=== PATIENT | male | born 1975 | race Caucasian/White ===

== ENCOUNTER 2023-11-22 09:30 | Emergency (ER) | payer BC, SELFPAY ==
[2023-11-22 09:34] VITALS: BP 150/109; PULSE 100; RESP 18; TEMP 37.8; O2SAT 100
--- NOTE | 2023-11-22 10:23 | ED.GENADULT ---
HPI - General Adult General Chief complaint: Skin/Abscess/Foreign Body Stated complaint: Facial Swelling/Left Eye Irritation Source: patient Mode of arrival: ambulatory Limitations: no limitations History of Present Illness HPI narrative: Patient presents for evaluation of left-sided facial swelling. He woke from sleep yesterday with some redness to the glabella/ He took a nap and woke up later in the day with swelling and redness to the left periorbital region. He denies any fever, chills, nausea, vomiting. He does not were glasses or contacts. His left upper and lower lids are swollen shut. Denies any drainage from the eye. He thinks he may have sustained an insect bite leading to the onset of his symptoms. Review of Systems Review of Systems: CONSTITUTIONAL: Denies fever, chills, or sweats. EYES: Reports left periorbital swelling. Denies discharge. ENT: Denies rhinorrhea, congestion, sore throat, or otalgia. CARDIOVASCULAR: Denies chest pain, palpitations, or edema. RESPIRATORY: Denies cough or dyspnea. GASTROINTESTINAL: Denies abdominal pain, nausea, vomiting, or diarrhea. GENITOURINARY: Denies dysuria or hematuria. SKIN: Reports redness to the left periorbital region. MUSCULOSKELETAL: Denies back pain, joint pain, or myalgia. NEUROLOGIC: Denies headache, numbness, dizziness, or weakness. PSYCHIATRIC: Denies anxiety or depression. PMFSH Past Medical History Medical History No pertinent past medical history Surgical History Surgical History No pertinent past surgical history Family History Family History Mother Family history non-contributory Social History Social History Living arrangements: with family Gender identity (if verbalized by the patient): Male Spiritual care concerns: No Exam Narrative: GENERAL: Well-appearing, well-nourished, and in no acute distress. HEAD: Normocephalic, atraumatic. EYES: PERRLA and EOMI. There is left periorbital swelling ENT: Nares clear, no rhinorrhea or epistaxis. Mucous membranes moist. Oropharynx without tonsillar hypertrophy exudate or other lesions. Bilateral TMs pearly castillo nonbulging NECK: Supple. No adenopathy or masses. No carotid bruits or JVD CHEST: Clear to auscultation. No respiratory distress. No wheezes rales or rhonchi HEART: Regular rate and rhythm. No murmur heard. Normal peripheral pulses. ABDOMEN: Soft, nontender, nondistended, normal active bowel sounds. EXTREMITIES: Normal range of motion. No edema. SKIN: there is a 4 x 3.5 cm area of erythema to the glabella. There is some overlying crusted drainage present. There is left periorbital redness NEURO: No focal deficits. Alert and oriented x3. PSYCH: Normal mood and affect. Course Course Emergency Course: This is a 48-year-old male who presented for evaluation of left periorbital swelling and redness. He does not have a primary care provider. I am concerned about his current symptoms with poor follow up. It would be in his best interest to go to the ER for further evaluation and treatment. At minimum they could potentially administer some steroids and perhaps some antibiotics as there is some area of concern for infection in the glabella region. He was agreeable to plans for transfer. I contacted [facility] and spoke with Dr. Garnica, who agreed to accept him for transfer to the Dept there. Level of Care: Express Care Visit Vital Signs Vital signs: Vital Signs Temperature 37.8 C H 11/22/23 09:34 Pulse Rate 100 11/22/23 09:34 Respiratory Rate 18 11/22/23 09:34 Blood Pressure 150/109 H 11/22/23 09:34 Pulse Oximetry 100 11/22/23 09:34 Oxygen Delivery Room Air 11/22/23 09:34 Temperature 37.8 C H 10/25
== END 2023-11-22 09:55 | disposition short-term general hospital (02) ==
LOC: EXPCOLL 09:35
PROVIDERS: Emergency Provider Nurse Practitioner
DX: H05.222 Edema of left orbit (principal)
CPT/HCPCS: 99212; G0463

== ENCOUNTER 2023-11-22 12:26 | Inpatient (IN) | payer BC, SELFPAY ==
--- NOTE | ~2023-11-22 | CT_ITS ---
CT orbit BI w con Ordering provider: Kiara Jones PA-C History: . L periorbital swelling, r/o orbit involvemnet . Comparison: None. Technique: Thin slice axial CT of the orbits was performed without contrast. Coronal reformatted imag es were also obtained. Radiation reduction technique utilized. The dose-length product was 166.3 mGy- cm. 75 mL Omnipaque 350 was given IV. FINDINGS: PARANASAL SINUSES: Right maxillary sinus disease. BONES: No facial fracture. ORBITS AND SUPERFICIAL SOFT TISSUES: The optic globes and orbits are normal. Scalp hematoma is seen in the left frontal area with soft tissue swelling over the left orbit. Otherw ise, The superficial soft tissues are normal. VISUALIZED MASTOIDS: Well aerated. IMPRESSION: NO ORBITAL FRACTURE IDENTIFIED. Reviewed, dictated and finalized at location A.
[2023-11-22 12:56] VITALS: BP 151/90; PULSE 80; RESP 16; TEMP 36.5; O2SAT 98
--- NOTE | 2023-11-22 14:28 | PC.NURSE ---
Eye kit brought to ABY Craig at bedside
[2023-11-22 14:29] VITALS: BP 142/97; PULSE 78; RESP 18; O2SAT 100
--- NOTE | 2023-11-22 14:38 | ED.EYEPROB ---
HPI - Eye Problem General Chief complaint: Eye Problems Stated complaint: L. eyelid swelling Time Seen by Provider: 11/22/23 14:16 Source: patient Mode of arrival: ambulatory Limitations: no limitations History of Present Illness HPI Narrative: Patient is a 48-year-old male who presents the ED with report of left eye swelling. Patient reports he first noticed redness to his middle forehead and left periorbital region yesterday. States he attempted washing the region home with soap/water and peroxide. He then woke up this morning with diffuse swelling throughout his left periorbital region. He complains of difficulty opening his left eye, but denies left eye vision changes. Denies significant eye pain or pain with movement of eye, but is reporting some mild pressure throughout left periorbital region. Denies fevers. Was seen at an urgent care prior to arrival and sent here for further evaluation. Related Data Allergies Allergy/AdvReac Type Severity Reaction Status Date / Time No Known Allergies Allergy Verified 11/22/23 16:16 Review of Systems Review of Systems: All systems reviewed & are unremarkable except as noted in HPI. All systems reviewed & are unremarkable except as noted in HPI and below PMFSH Past Medical History Medical History No pertinent past medical history Surgical History Surgical History No pertinent past surgical history Family History Family History Mother Family history non-contributory Social History Social History Living arrangements: with family Gender identity (if verbalized by the patient): Male Spiritual care concerns: No Exam Narrative: GENERAL: Mildly unkempt and disheveled appearing, well-nourished, non-toxic, in no acute distress. HEAD: Normocephalic, atraumatic. EYES: PERRL. EOMI, no significant discomfort reported with EOM. No limitations of EOM. No gaze deviation. No significant chemosis or appreciable proptosis. L eye conjunctiva is clear. There is some purulent and serous drainage from the eye, matting into the eyelashes. Diffuse swelling, erythema, and induration to L periorbital regions, including both L upper and lower eyelid. Difficult to open eye to visualize fully d/t swelling. Area of erythema and slight scaling vs scabbing present to middle forehead, between eyebrows (appearance is somewhat similar to impetigo?) No vesicles. No drainage. No pustular regions or pimple-like lesions. ENT: TM clear bilaterally, no evidence of AOE/AOM. No cerumen impaction. No vesicles present in either ear canal. Negative Deleon sign. RESPIRATORY: Airway patent, respirations nonlabored. Clear to auscultation bilaterally, no rales, rhonchi, wheezing. CARDIOVASCULAR: Regular rate and rhythm without murmurs, rubs, or gallops. MUSCULOSKELETAL: Moves all extremities. No gross deformities. SKIN: Warm, dry, normal color. NEURO: A&O X3. Speech clear. Cranial nerves II-XII grossly intact. Steady gait. No ataxic movements. PSYCHIATRIC: Appropriate mood and affect. Normal interaction. Course Vital Signs Vital signs: Vital Signs Temperature 97.7 F 11/22/23 12:56 Pulse Rate 80 11/22/23 12:56 Respiratory Rate 16 11/22/23 12:56 Blood Pressure 151/90 H 11/22/23 12:56 Pulse Oximetry 98 11/22/23 12:56 Oxygen Delivery Room Air 11/22/23 12:56 Temperature 97.7 F 11/22/23 12:56 Pulse Rate 78 11/22/23 14:29 Respiratory Rate 18 11/22/23 14:29 Blood Pressure 142/97 H 11/22/23 14:29 Pulse Oximetry 100 11/22/23 14:29 Oxygen Delivery Room Air 11/22/23 12:56 MDM - Eye Problem MDM Narrative Medical decision making narrative: Exam concerning for periorbital cellulitis. Will obtain lab and imaging to furt
[2023-11-22 14:52] LABS: Basophils Percent Auto 0.5 % (0.2-1.2); Eosinophils Absolute Auto 0.2 K/mm3 (0-0.3); Eosinophils Percent Auto 2.3 % (0-4.4); Hematocrit 35.9 % (42.0-52.0); Hemoglobin 12.3 g/dL (14.0-18.0); Immature Granulocyte Absolute 0.03 K/mm3 (0.00-0.031); Immature Granulocyte Percent A 0.3 % (0-0.5); Lymphocytes Absolute Auto 1.59 K/mm3 (0.9-3.2); Lymphocytes Percent Auto 18.4 % (18.3-44.2); Mean Corpuscular HGB Conc 34.3 g/dl (32-36); Mean Corpuscular Hemoglobin 33.6 pg (26-34); Mean Corpuscular Volume 98.1 fl (80-100); Mean Platelet Volume 10.7 fl (7.4-10.4); Monocytes Absolute Auto 0.9 K/mm3 (0.1-0.6); Monocytes Percent Auto 10.4 % (2.6-8.5); Neutrophils Absolute Auto 5.9 K/mm3 (1.3-6.7); Neutrophils Percent Auto 68.1 % (45.5-73.1); Platelet Count Result 166 k/mm3 (150-375); Red Blood Count 3.66 M/mm3 (4.6-6.20); Red Cell Distribution Width 13.4 % (11.5-14.5); White Blood Count 8.6 K/mm3 (4.5-10.0)
[2023-11-22 15:05] LABS: Estimated CRCL calculation 112 ml/min; Estimated Glomerular Filt Rate > 60
[2023-11-22 15:07] LABS: Lactic Acid Reflex 0.6 mmol/L (0.7-2.0)
[2023-11-22 15:09] LABS: Alanine Aminotransferase 13 U/L (6-50); Alkaline Phosphatase 77 U/L (38-126); Anion Gap 6 mmol/L (4-12); Aspartate Amino Transferase 22 U/L (17-59); Bilirubin,Total 0.4 mg/dL (0.2-1.3); Blood Urea Nitrogen 22 mg/dL (9-20); CRP 1.7 mg/dL (<1.0); Calcium 8.8 mg/dL (8.4-10.2); Carbon Dioxide 27 mmol/L (22-30); Chloride 105 mmol/L (98-107); Estimated CRCL calculation 128 ml/min; Estimated Glomerular Filt Rate > 60; Glucose 98 mg/dL (65-110); Potassium 3.9 mmol/L (3.4-5.0); Sodium 138 mmol/L (137-145)
[2023-11-22 15:20] LABS: Erythrocyte Sedimentation Rate 29 mm/hr (0-20)
[2023-11-22] MEDS: cefTRIAXone 2 GM/NS 100 ML 2 GM/100 ML BAG IVPB (16:49)
[2023-11-22] MEDS: HYDROcodone/acetaminophen (*CRX) 5-325 MG TABLET 1 TAB PO ×2 (16:50→20:35)
--- NOTE | 2023-11-22 16:52 | PC.NURSE ---
Pt reports hunger. Kiara ISAACS states pt can eat
--- NOTE | 2023-11-22 16:54 | PC.NURSE ---
SHITAL Craig states no blood cultures needed
[2023-11-22 17:27] VITALS: PULSE 77; RESP 16; O2SAT 100
--- NOTE | 2023-11-22 17:57 | ADMGEN ---
This patient, Wang Rodney, was admitted to [facility] Surg Room 327-01. Patient/family oriented to hospital policies and general routines including ID bracelet, bed and alarms, visiting hours, pain management, procedures, bathroom and other care routines, personal items, smoking policy, room service/diet, and visiting hours. Information on how to activate the Rapid Response Team has been discussed. Patient/Family are encouraged to report perceived risks to care and to ask questions if they do not understand what they are told or what they should do.
[2023-11-22] MEDS: VANCOMYCIN 1,250 MG/NS 250 ML 1,250 MG/250 ML BAG 166.67 MG IVPB (17:58)
--- NOTE | 2023-11-22 18:12 | PC.NURSE ---
Patient resting in bed. A&O x4. RA. No complaints of pain. IV abx started. Education given about safety moving around the room with IV pole. Meal tray ordered.
--- NOTE | 2023-11-22 19:00 | PM.IMHP ---
H&P: HPI History of Present Illness Date/Time: 11/22/23 19:00 Chief Complaint: Swollen left eye. Narrative: This is a 48-year-old male smoker who presented to the emergency department via private vehicle for evaluation of a swollen left eye. The patient provides the following history. He woke from sleep yesterday and noticed some redness in the mid to left side of the forehead and throughout the day the area became red and swollen. He cleaned the area with soap and water and peroxide before going to bed. Upon waking this morning he could barely open his left eye due to swelling. He went urgent care and was referred to the ED. He denies fever, chills, sweats, blurry vision, photophobia, vesicles, and facial muscle weakness. No known history of MRSA. In the ED: Temperature was 100.1? F on arrival. Blood pressure was 150/109. Labs are significant for WBC count of 8.6, hemoglobin 12.3, BUN 22, creatinine 0.70, lactic acid 0.6, CRP 1.7. Orbit CT showed soft tissue swelling over the left frontal area and left orbit. ED provider clarified with the radiologist that the swelling was superficial without involvement of the orbit itself. He was given a dose of ceftriaxone and vancomycin he is being admitted in this setting for further treatment. Review of Systems Review of Systems: 12 systems were reviewed and are negative except for as per HPI. [facility] Past Medical History Medical History No pertinent past medical history Tobacco dependence Surgical History Surgical History No pertinent past surgical history Family History Family History Mother Family history non-contributory Social History Social History Social History: Surrogate medical decision maker: Pietro Swartz, jacob. Code status: Full code. Smoking packs per day: 1 Smoking cigarettes per day: 20.0 Smoking status: Current every day smoker Tobacco type: cigarettes Alcohol intake: never Substance use: never Do You Feel Safe in your Home?: Yes Lack of Transportation: No Lack of Food: Never True Current Housing: I Have Housing Concerned About Future Housing: No Difficulty Paying Gas/Electric Bills: No Difficulty Paying for Meds: No Currently Unemployed: No Education: Don't Know Difficulty w/ Childcare or Family Care: No Living arrangements: with family Spiritual care concerns: No Meds Home Medications and Allergies Home Medications Medication Instructions Recorded Confirmed Type No Home Medications 11/22/23 11/22/23 History Allergies Allergy/AdvReac Type Severity Reaction Status Date / Time No Known Allergies Allergy Verified 11/22/23 17:59 Vital Signs Vital Signs - 24 hr 11/22/23 12:56 11/22/23 14:29 11/22/23 17:27 Temperature 97.7 F Pulse Rate 80 78 77 Respiratory Rate 16 18 16 Blood Pressure 151/90 H 142/97 H Pulse Oximetry 98 100 100 Oxygen Delivery Room Air Exam Narrative: General: Nontoxic-appearing male in the semi-[place]a position in bed. Weight: 69.4 kg. BMI: 20.2. HEENT: Left eye is erythematous and edematous and he is only able to open it up a couple of mm. There is yellow/green crust in the upper eyelashes. The erythema and edema extend down onto the cheek. There appears to be an area of impetigo in the glabellar region which may be the nidus of the infection. Left conjunctiva is injected. No pain with extraocular motions. Oral mucosa moist. Neck: Supple. Respiratory: Lungs are clear to auscultation bilaterally. Cardiovascular: Regular rate and rhythm with S1-S2. Gastrointestinal: Abdomen is soft, nontender, and nondistended with positive bowel sounds. Skin: Warm and dry. No rash or lesions on limited exam. Extremities: No cyanosis, clubbing, or e
[2023-11-22 21:26] VITALS: BP 142/91; PULSE 81; RESP 16; TEMP 36.7; O2SAT 97
[2023-11-23 02:00] LABS: MRSA (PCR) DETECTED (NOT DETECTE)
[2023-11-23 06:00] VITALS: BP 133/86; PULSE 75; RESP 16; TEMP 36.3; O2SAT 98
[2023-11-23] MEDS: VANCOMYCIN 1,250 MG/NS 250 ML 1,250 MG/250 ML BAG 166 MG IVPB ×2 (06:13→17:11)
[2023-11-23] MEDS: HYDROcodone/acetaminophen (*CRX) 5-325 MG TABLET 1 TAB PO ×2 (06:15→20:45)
[2023-11-23 06:16] LABS: Hematocrit 37.8 % (42.0-52.0); Hemoglobin 12.7 g/dL (14.0-18.0); Mean Corpuscular HGB Conc 33.6 g/dl (32-36); Mean Corpuscular Hemoglobin 33.6 pg (26-34); Mean Platelet Volume 11.4 fl (7.4-10.4); Platelet Count Result 167 k/mm3 (150-375); Red Blood Count 3.78 M/mm3 (4.6-6.20); Red Cell Distribution Width 13.3 % (11.5-14.5); White Blood Count 8.4 K/mm3 (4.5-10.0)
[2023-11-23 06:28] LABS: Anion Gap 2 mmol/L (4-12); Blood Urea Nitrogen 19 mg/dL (9-20); Calcium 8.2 mg/dL (8.4-10.2); Carbon Dioxide 27 mmol/L (22-30); Chloride 107 mmol/L (98-107); Estimated CRCL calculation 113 ml/min; Estimated Glomerular Filt Rate > 60; Glucose 107 mg/dL (65-110); Potassium 4.3 mmol/L (3.4-5.0); Sodium 136 mmol/L (137-145)
--- NOTE | 2023-11-23 08:38 | PM.IMPN ---
Progress Note: A&P Assessment and Plan (1) Periorbital cellulitis of left eye: Code(s): L03.213 - Periorbital cellulitis Status: Acute Plan The patient presented to the emergency department for evaluation of left eye swelling as detailed in HPI. Labs, imaging, EKG, and all reports were personally reviewed. Cellulitis may have been precipitated by a what appears to be impetigo in the glabellar region. CT scan showed soft tissue swelling in the ED provider confirmed with the radiologist that it was superficial. Continue ceftriaxone and vancomycin. Analgesics available as needed. Smoking cessation is encouraged. He declines the need for nicotine patch. #Periorbital Cellulitis -No evidence of shingles -No evidence of Orbital Cellulitis -No evidence of cavernous sinus thrombosis -Denies contact lens -Continue Vancomycin -If necessary escalate if Amp/Sulbactam -Continue warm compress Subjective Date/time seen: 11/23/23 08:38 Interval history: Patient works in construction. Patient currently lives at his friend's house. Believes 2 days ago he he had a bite on his left forehead and washed with peroxide but later his left eye was swollen and could not able to open his eyes. When questioned about shingles, patient reports he had shingles before but he felt his lesion on the left side does not feel like shingles. Denies any past medical history including diabetes but never seen a PCP. His last visit for medical attention for for his knee pain at [facility]. Patient nasal mask size positive. Currently we will continue the IV antibiotic with a warm compress. Patient is able to move his eyes without any difficulty. Patient denies any contact lens use undergo evidence of corneal abrasion. No suspicious for cavernous sinus thrombosis. Objective Data Vital Signs Vital Signs: Vital Signs - 24 hr 11/22/23 12:56 11/22/23 14:29 11/22/23 17:27 Temperature 97.7 F Pulse Rate 80 78 77 Respiratory Rate 16 18 16 Blood Pressure 151/90 H 142/97 H Pulse Oximetry 98 100 100 Oxygen Delivery Room Air 11/22/23 21:26 11/22/23 20:00 11/23/23 06:00 Temperature 98.1 F 97.4 F L Pulse Rate 81 75 Respiratory Rate 16 16 Blood Pressure 142/91 H 133/86 Pulse Oximetry 97 98 Oxygen Delivery Room Air 11/23/23 07:38 Temperature Pulse Rate Respiratory Rate Blood Pressure Pulse Oximetry Oxygen Delivery Room Air Intake/Output Intake/Output: Intake & Output 11/20/23 11/21/23 11/22/23 11/23/23 23:59 23:59 23:59 23:59 Intake Total 830 1000 Balance 830 1000 Meds/Results Medications: Active Medications Generic Name Dose Route Start Last Admin Trade Name Freq PRN Reason Stop Dose Admin Acetaminophen 650 mg 11/22/23 19:19 Acetaminophen 325 Mg Tablet PO Q6H PRN Mild Pain (1-3) or Fever Hydrocodone Bitart/Acetaminophen 1 tab 11/22/23 19:19 11/23/23 06:15 Hydrocodone/Acetaminophen (*Crx) 5-325 Mg Tablet PO 1 tab Q6H PRN Administration Pain Rated 4-6 Ceftriaxone Sodium 2 gm in 100 mls @ 200 mls/hr 11/23/23 16:00 Rocephin 2 Gm/Ns 100 Ml IVPB Q24H DAQUAN Vancomycin HCl 1,250 mg in 250 mls @ 166.667 mls/hr 11/22/23 18:00 11/23/23 07:44 Vancomycin 1,250 Mg/Ns 250 Ml IVPB Infused Q12H DAQUAN Infusion Radiology Results: ITS Impressions Orbit CT 11/22/23 15:15 IMPRESSION: NO ORBITAL FRACTURE IDENTIFIED. Labs Labs: Laboratory Results - last 24 hr 11/22/23 11/22/23 11/23/23 14:47 14:59 00:22 WBC 8.6 RBC 3.66 L Hgb 12.3 L Hct 35.9 L MCV 98.1 MCH 33.6 MCHC 34.3 RDW 13.4 Plt Count 166 MPV 10.7 H Immature Gran % (Auto) 0.3 Neut % (Auto) 68.1 Lymph % (Auto) 18.4 [place] % (Auto) 10.4 H Eos % (Auto) 2.3 Baso % (Auto) 0.5 Lymph # (Auto) 1.59 [place] # (Auto) 0.9 H Eos # (Auto) 0.2 Baso # (Auto) 0.0 Abs Immat Gran (auto) 0.03 Absolute Neuts (auto) 5.9 Absolute Nu
[2023-11-23 14:00] VITALS: BP 137/93; PULSE 70; RESP 14; TEMP 37; O2SAT 99
[2023-11-23] MEDS: cefTRIAXone 2 GM/NS 100 ML 2 GM/100 ML BAG IVPB (15:29)
[2023-11-23 21:11] VITALS: BP 152/94; PULSE 76; RESP 16; TEMP 36.9; O2SAT 98
[2023-11-24 05:41] VITALS: BP 147/90; PULSE 56; RESP 13; TEMP 36.7; O2SAT 99
[2023-11-24 05:48] LABS: Estimated CRCL calculation 132 ml/min; Estimated Glomerular Filt Rate > 60
[2023-11-24 06:00] LABS: Vancomycin Trough 7.9 ug/mL (10.0-20.0)
[2023-11-24] MEDS: VANCOMYCIN 1,750 MG/NS 500 ML 1,750 MG/500 ML BAG 250 MG IVPB (06:57)
[2023-11-24 08:00] VITALS: PULSE 56; RESP 13; O2SAT 99
--- NOTE | 2023-11-24 12:32 | P.DS_ITS ---
DS: Admitting Diagnosis Discharge Date 11/24/2023 Admitting Diagnosis Facial cellulitis DS: Discharge Diagnosis Discharge Diagnosis (1) Periorbital cellulitis of left eye: Code(s): L03.213 - Periorbital cellulitis Status: Acute DS: Summary Hospital Course Hospital Course: This is a 48-year-old male smoker who presented to the emergency department via private vehicle for evaluation of a swollen left eye. The patient provides the following history. He woke from sleep yesterday and noticed some redness in the mid to left side of the forehead and throughout the day the area became red and swollen. He cleaned the area with soap and water and peroxide before going to bed. Upon waking this morning he could barely open his left eye due to swelling. He went urgent care and was referred to the ED. He denies fever, chills, sweats, blurry vision, photophobia, vesicles, and facial muscle weakness. No known history of MRSA. In the ED: Temperature was 100.1? F on arrival. Blood pressure was 150/109. Labs are significant for WBC count of 8.6, hemoglobin 12.3, BUN 22, creatinine 0.70, lactic acid 0.6, CRP 1.7. Orbit CT showed soft tissue swelling over the left frontal area and left orbit. ED provider clarified with the radiologist that the swelling was superficial without involvement of the orbit itself. He was given a dose of ceftriaxone and vancomycin he is being admitted in this setting for further treatment. Patient was placed on vancomycin adn swelling markedly reduced, and erythema improved markedly. Today patient was discharged on Linezolid x 11 more days to total 14 days. also MRSA screenign positive and discharged on bactroban adn PRN pain control [place] 5/325 PRN 6 tablets \Also blood pressure was elevated through hospital stay,. thus patient has hypertension discharged on Lisinopril and HCTZ F/u with PCP in 3-5 days Time Spent with Patient Time attestation: Total time spent providing and/or coordinating discharge services: DS: Data Data Completed and Pending Labs on day of discharge: Labs from last 24 hours 11/24/23 05:16 Creatinine 0.60 L Estim Creat Clear Calc 132 Estimated GFR > 60 Vancomycin Trough 7.9 L Discharge Plan Discharge Attending physician on discharge: Angel Gomez Discharging Clinician: Nnanna,Onyema Anticipated Discharge Date/Time: 11/24/23 12:09 Patient Disposition: Home, Self-Care Activity: as tolerated Diet: as tolerated Discharge Instructions: Continue Linezolid for another 11 days conitnue Lisinopril 5mg adn HCTZ F/u with PCP in 3-5 days Patient Instructions: Antibiotic Form, How to Stop Smoking (DC) Stand Alone Forms: General Discharge Information Follow-up/Referrals: PHYSICIAN,INCOME TAX RETURN PREPARER [Primary Care Provider] - (F/u with PCP in 3-5 days) Discharge Medications: New hydrocodone-acetaminophen 5-325 mg Tablet 1 tablet PO Q6H PRN (Reason: Pain Rated 4-6) 3 Days Qty: 6 0RF linezolid 600 mg Tablet 600 mg PO Q12HR Qty: 23 0RF lisinopril-hydrochlorothiazide 10-12.5 mg tablet 1 tablet PO DAILY 30 Days Qty: 30 1RF mupirocin 2 % Ointment 1 applic EACH NARE Q12HR 10 Days Qty: 15 0RF Date of admission: 11/23/23 17:53 Primary Care Provider: PHYSICIAN,INCOME TAX RETURN PREPARER Admitting Provider: Vic Chang Attending physician on admission: Vic Chang Condition: Stable
[2023-11-24] MEDS: LINEZOLID 600 MG TABLET PO (13:07)
== END 2023-11-24 15:20 | disposition home or self-care (01) | DRG 383 ==
LOC: ANHED 14:38 → ANH3MEDSUR 17:23
PROVIDERS: Physician Assistant; Admitting Provider Internal Medicine; Emergency Provider Physician Assistant; Visit Provider Internal Medicine
DX: L03.213 Periorbital cellulitis (principal); F17.210 Nicotine dependence, cigarettes, uncomplicated
CPT/HCPCS: 36415; 70481; 80048; 80053; 80202; 82565; 83605; 85025; 85027; 85652; 86140; 87641; 96365; 99285; A9270; G0378; G0379; J0696; J3370; Q9967

== ENCOUNTER 2024-01-26 11:22 | Emergency (ER) | payer BC, SELFPAY ==
[2024-01-26 11:33] VITALS: BP 131/83; PULSE 108; RESP 16; TEMP 36.6; O2SAT 99
--- NOTE | 2024-01-26 11:41 | PC.NURSE ---
Pt c/o left ear pain for 2 days. Noted crusty yellow drainage from left ear. Pt currently unhoused. Care coordination consulted.
--- NOTE | 2024-01-26 12:10 | PCCCNOTE ---
Called to ED for homeless group home resources. Pt denied needing any other resources at this time.
--- NOTE | 2024-01-26 12:26 | ED.EAR ---
HPI - Ear Problem General Chief complaint: Ear Stated complaint: LEFT ear concerns x2d Time Seen by Provider: 01/26/24 11:41 History of Present Illness HPI Narrative: Patient is a 48-year-old male who presents to the ER with complaints of left ear pain. He reports the pain started approximately 2 days ago and he denies any previous congestion/ cough/ respiratory issues. Patient reports he is homeless and is provided services through social work. He denies any pertinent medical history related to this ER visit besides an abscess in his R eyelid approximately two months ago for which he was hospitalized. He denies any recent fevers, signs/symptoms of infection. MD Complaint: ear pain and ear discharge Location: left ear Duration: constant Severity: moderate Relieving factors: nothing Exacerbating factors: nothing Discharge from ear: Reports yes - purulent Associated symptoms ear: external ear tenderness Treatment prior to arrival: none Related Data Allergies Allergy/AdvReac Type Severity Reaction Status Date / Time No Known Allergies Allergy Verified 01/26/24 11:23 Review of Systems Review of Systems: All systems reviewed & are unremarkable except as noted in HPI and below PMFSH Past Medical History Medical History No pertinent past medical history Tobacco dependence Surgical History Surgical History No pertinent past surgical history Family History Family History Mother Family history non-contributory Social History Social History Social History: Surrogate medical decision maker: Pietro Swartz, sibling. Code status: Full code. Smoking packs per day: 1 Smoking cigarettes per day: 20.0 Smoking status: Current every day smoker Tobacco type: cigarettes Alcohol intake: never Substance use: never Do You Feel Safe in your Home?: Yes Lack of Transportation: No Lack of Food: Never True Current Housing: I Have Housing Concerned About Future Housing: No Difficulty Paying Gas/Electric Bills: No Difficulty Paying for Meds: No Currently Unemployed: No Education: Don't Know Difficulty w/ Childcare or Family Care: No Living arrangements: with family Spiritual care concerns: No Exam Narrative: GENERAL: Well appearing, well-nourished, non-toxic, in no acute distress. HEAD: Normocephalic, atraumatic. Dried purulent drainage coming from pts L ear canal. Unable to see L tympanic membrane d/t wax and drainage. R tympanic membrane pearly and translucent. NECK: Supple. Cervical lymph nodes on L side slightly enlarged. RESPIRATORY: Airway patent, respirations nonlabored. Clear to auscultation bilaterally, no rales, rhonchi, wheezing. CARDIOVASCULAR: Regular rate and rhythm without murmurs, rubs, or gallops. Peripheral pulses 2+ and equal bilaterally. ABDOMINAL: Soft, nontender, nondistended, no hepatosplenomegaly. Normoactive BS. MUSCULOSKELETAL: Moves all extremities. Strength/ROM intact without gross deformities. SKIN: Warm, dry, normal color. No rashes. NEURO: A&O X3. Speech clear. Cranial nerves II-XII grossly intact. Steady gait. No ataxic movements. PSYCHIATRIC: Appropriate mood and affect. Normal interaction. Course Vital Signs Vital signs: Vital Signs Temperature 36.6 C 01/26/24 11:33 Pulse Rate 108 H 01/26/24 11:33 Respiratory Rate 16 01/26/24 11:33 Blood Pressure 131/83 01/26/24 11:33 Pulse Oximetry 99 01/26/24 11:33 Oxygen Delivery Room Air 01/26/24 11:33 Temperature 36.6 C 01/26/24 11:33 Pulse Rate 108 H 01/26/24 11:33 Respiratory Rate 16 01/26/24 11:33 Blood Pressure 131/83 01/26/24 11:33 Pulse Oximetry 99 01/26/24 11:33 Oxygen Delivery Room Air 01/26/24 11:33 Medical Decision Making [facility] Narrative Medical decision making narrative: Patient is a 48-year-old male who presents to the ER with complaints of left ear pain. He reports the pain started approximately 2 days ago and he denies any previous congestion/ cough/ respiratory issues. Patient reports he is homeless and is provided services through social work. He denies any pertinent medical history related to this ER visit besides an abscess in his R eyelid approximately two months ago for which he was hospitalized. He denies any recent fevers, signs/symptoms of infection. Labs Ordered: None needed Imaging Ordered: None needed Diagnosis: L otitis media, L otitis externa Patient Education/Shared MDM: Patient reports improved symptoms after medication administration. He will be discharged home with a prescription for amoxicillin and ibuprofen. Patient verbalizes understanding and is in agreement with plan. Differential Diagnosis Differential Diagnosis: R otitis media, R otitis externa, foreign body in ear, perforated ear drum Vital Signs Vital Signs: Vital Signs Temperature 36.6 C 01/26/24 11:33 Pulse Rate 108 H 01/26/24 11:33 Respiratory Rate 16 01/26/24 11:33 Blood Pressure 131/83 01/26/24 11:33 Pulse Oximetry 99 01/26/24 11:33 Oxygen Delivery Room Air 01/26/24 11:33 Temperature 36.6 C 01/26/24 11:33 Pulse Rate 108 H 01/26/24 11:33 Respiratory Rate 16 01/26/24 11:33 Blood Pressure 131/83 01/26/24 11:33 Pulse Oximetry 99 01/26/24 11:33 Oxygen Delivery Room Air 01/26/24 11:33 Discharge Plan Discharge Clinical Impression: Otitis externa, Otitis media Patient Disposition: Home, Self-Care Condition: Stable Instructions: Antibiotic Form, Ear Infection (ED), Earache (ED) Additional Instructions: Patient is in agreement with current treatment plan. All questions answered. Vital signs stable at time of discharge. Please return to the ER with an worsening symptoms. Follow-up with primary care provider in the next 2-3 days. Take all medications as prescribed. Prescriptions: New amoxicillin-pot clavulanate 875-125 mg tablet 1 tablet PO Q12H Qty: 14 0RF ibuprofen 600 mg tablet 600 mg PO TID PRN (Reason: fever or pain) Qty: 14 0RF No Action hydrocodone-acetaminophen 5-325 mg Tablet 1 tablet PO Q6H PRN (Reason: Pain Rated 4-6) 3 Days Qty: 6 0RF linezolid 600 mg Tablet 600 mg PO Q12HR Qty: 23 0RF mupirocin 2 % Ointment 1 applic EACH NARE Q12HR 10 Days Qty: 15 0RF lisinopril-hydrochlorothiazide 10-12.5 mg tablet 1 tablet PO DAILY 30 Days Qty: 30 1RF Follow-up/Referrals: UNKNOWN,DOCTOR [Primary Care Provider] - Time of Disposition: 14:10
[2024-01-26] MEDS: AMOXICILLIN 500 MG CAPSULE PO (12:27)
[2024-01-26] MEDS: KETOROLAC (*BKC) 60 MG/2 ML VIAL IM (12:27)
[2024-01-26] MEDS: methylPREDNISolone SOD SUCC 125 MG VIAL IM (12:27)
[2024-01-26] MEDS: OFLOXACIN 0.3% OPHTH SOLN 5 ML BTL 3 DROP EACH EAR (12:48)
[2024-01-26 14:19] VITALS: BP 130/68; PULSE 78; RESP 18; TEMP 37; O2SAT 99
== END 2024-01-26 14:27 | disposition home or self-care (01) ==
PROVIDERS: Emergency Provider Registered Nurse
DX: H60.91 Unspecified otitis externa, right ear (principal); H66.91 Otitis media, unspecified, right ear; F17.210 Nicotine dependence, cigarettes, uncomplicated
CPT/HCPCS: 96372; 99284; A9270; J1885; J2919

== ENCOUNTER 2024-03-19 08:51 | Inpatient (IN) | payer BC, SELFPAY ==
[2024-03-19] VITALS (12 sets, daily range): BP systolic 101–128; BP diastolic 51–89; PULSE 68–129; RESP 12–18; TEMP 36.3–37.2; O2SAT 98–100; BMI 22.4
--- NOTE | ~2024-03-19 | US_ITS ---
EXAMINATION: US soft tissue groin RT, US soft tissue groin LT DATE: 03/22/2024 09:56 INDICATION: Enlarged bilateral inguinal lymph nodes on prior CT TECHNIQUE: Multiple grayscale and Doppler ultrasound images of the left and right inguinal regions we re obtained. COMPARISON: CT dated 03/21/2024 FINDINGS: There are several normal sized and appearing right inguinal lymph nodes which all measure <6 mm in ma ximal short axis diameter with central echogenic fatty hilum. There are also several normal sized and appearing left inguinal lymph nodes also with subtle echogenic fatty rickey, the largest measuring 7 m m in maximal short axis standard. IMPRESSION: 1. Normal sized and appearing bilateral inguinal lymph nodes. Reviewed, dictated and finalized at location A. OPERATIONS ANALYST IMPRESSION: 1. Normal sized and appearing bilateral inguinal lymph nodes.
--- NOTE | ~2024-03-19 | US_ITS ---
EXAM: Focused ultrasound examination of the soft tissues of the left axilla HISTORY: Mediastinal lymphadenopathy with palpable lymph nodes in the left axilla TECHNIQUE: Sonographic evaluation of the soft tissues of the left axilla were performed assessing gra yscale appearance and color Doppler flow. COMPARISON: Reference is made to CT examination of the chest and abdomen dated 03/19/2024. FINDINGS: Nonpathologically enlarged lymph nodes detected within the bilateral axilla. The largest wi thin the left axilla demonstrates a lobulated margin, although with a benign fatty hilum measuring 5. 4 mm in short axis dimension. Sonographic evaluation of the soft tissues of the remainder of the bilateral axilla demonstrate benig n fibrofatty and fibromuscular elements without a cystic or solid lesion of concern. IMPRESSION: Nonpathologically enlarged lymph nodes within the bilateral axilla, as detailed above. The lymph node within the left axilla is amenable to ultrasound-guided biopsy, should that become nec essary. Reviewed, dictated and finalized at location A. ER INSPECTOR IMPRESSION: Nonpathologically enlarged lymph nodes within the bilateral axilla, as detailed above. The lymph node within the left axilla is amenable to ultrasound-guided biopsy, should that become necessary.
--- NOTE | ~2024-03-19 | CT_ITS ---
EXAMINATION: CT chest abdomen w con DATE: 03/19/2024 11:59 INDICATION: Assess for malignancy with abnormal chest radiograph TECHNIQUE: Computed tomography (CT) of the chest and abdomen was performed with 100 mL Omnipaque-350 intravenous contrast. Additional 3D reconstructions utilizing coronal maximum intensity projection (M IP) were performed. Automated exposure control and iterative reconstruction technique were employed. The dose-length product was 275.47 mGy-cm. COMPARISON: None FINDINGS: Chest: Mild apical predominant paraseptal emphysema. Patchy groundglass opacities and consolidation in the b asilar segments of the left lower lobe. There is additional dense consolidation and small amount surr ounding patchy groundglass opacity in the anterobasilar right lower lobe. No other suspicious pulmona ry nodules, pulmonary edema or pleural effusion. Heart size is normal. Atherosclerotic coronary arter y calcifications. Small pericardial effusion. Thoracic aorta is normal in caliber with no dissection. Additional enhancing mediastinal mass including a 4.9 x 2.8 cm precarinal mass, 4.5 x 2.8 cm right p aratracheal mass and 3.4 x 1.8 cm subcarinal mass which are suspicious for either lymphoma or metasta tic disease. No other evident pathologically enlarged lymphadenopathy in the chest or visualized lowe r neck. Mild thoracic spondylosis. Abdomen: Liver, gallbladder, spleen, pancreas, bilateral adrenal glands and kidneys are normal. Visualized por tions of bowels are unremarkable with no obstruction or abnormal bone or thickening. No pathologicall y enlarged abdominal or upper pelvic lymphadenopathy. Minimal lumbar spondylosis. IMPRESSION: 1. Mediastinal lymphadenopathy suspicious for malignancy either lymphoma or metastatic disease. No ot her lesions suspicious for primary or metastatic disease identified in the chest or abdomen. 2. Pneumonia in the bilateral lower lobes. Reviewed, dictated and finalized at location A. ING PIPE DRILLER AND THREADER IMPRESSION: 1. Mediastinal lymphadenopathy suspicious for malignancy either lymphoma or met astatic disease. No other lesions suspicious for primary or metastatic disease identified in the chest or abdomen. 2. Pneumonia in the bilateral lower lobes.
--- NOTE | ~2024-03-19 | CT_ITS ---
EXAMINATION: CT chest abdomen pelvis w con DATE: 03/21/2024 23:35 INDICATION: Lymphadenopathy. TECHNIQUE: Computed tomography (CT) of the chest, abdomen, and pelvis was performed with 100 mL Omnip aque 350 intravenous contrast. Automated exposure control and iterative reconstruction technique were employed. The dose-length product was 487.47 mGy-cm. COMPARISON: CT chest and abdomen 03/19/2024 FINDINGS: CHEST CT: There are airspace opacities in the basilar lower lobes, consistent with pneumonia. There is mild emp hysema. There are small pleural effusions. There is bulky mediastinal lymphadenopathy. A right paratr acheal node measures 4.7 x 3.0 cm. The heart size is normal. No pericardial effusion. There is mild t horacic spondylosis. ABDOMEN/PELVIS CT: The liver, gallbladder, spleen, pancreas, adrenal glands, and kidneys are normal. There are no dilate d loops of bowel. The appendix is normal. There are no pathologically enlarged lymph nodes. There is no free intraperitoneal fluid. There is mild lumbar spondylosis. IMPRESSION: 1. Stable bilateral lower lobe pneumonia. 2. Worsened small pleural effusions. 3. Stable mediastinal lymphadenopathy suspicious for metastatic disease or lymphoma. 4. Mild emphysema. Reviewed, dictated and finalized at location A. FORMER IMPRESSION: 1. Stable bilateral lower lobe pneumonia. 2. Worsened small pleural effusions. 3. Stable mediastinal lymphadenopathy suspicious for metastatic disease or lymp jack. 4. Mild emphysema.
--- NOTE | ~2024-03-19 | XR_ITS ---
Portable chest x-ray Comparison: 03/19/2024 Clinical History: Pneumonia Findings: There is mild bibasilar airspace disease. Underlying COPD pattern. Cardiomediastinal silh ouette is stable. Bones and soft tissues are unremarkable. Impression: Probable mild bibasilar pulmonary edema/atelectasis, versus possibly pneumonia. Correlate clinically. Underlying COPD. Reviewed, dictated and finalized at [facility]. ER SETTER Impression: Probable mild bibasilar pulmonary edema/atelectasis, versus possibly pneumonia. Correlate clinically. Underlying COPD.
--- NOTE | ~2024-03-19 | US_ITS ---
EXAMINATION: US biopsy lymph node DATE: 03/22/2024 15:21 INDICATION: Lymphadenopathy. Clinical concern for lymphoma TECHNIQUE: The procedure including the risks, benefits, and alternatives was discussed with the patie nt. Risks discussed included bleeding and infection. The patient understood the risks and benefits and agreed to proceed. Limited ultrasound examination was performed of the left groin to confirm the optimal site for biopsy . Multiple nonpathologically enlarged or morphologically suspicious lymph nodes were identified within the bilateral groins. A single lymph node within the left groin with a lobulated rickey and increased s hort axis dimension of 15.3 mm was chosen as most suspicious, and suitable for biopsy. The skin overl catracho the left groin lymph node was prepped and draped in usual sterile fashion. Anesthetic was admin istered with 1% lidocaine subcutaneously as well as within the deep soft tissues of the right groin. A 13G introducer was placed using ultrasound guidance into the thickened lobulated cortex of the lymp h node, and the inner needle removed. A 14-gauge biopsy device was then used to obtain 4 biopsy specimens under continuous sonographic guid ance for both RPMI and formalin. The biopsy device was then removed, and a sterile dressing applied. Postbiopsy imaging was without active extravasation. There were no immediate complications. The patient tolerated the procedure without difficulty, and was returned to the floor in stable condi tion. IMPRESSION: 1. Technically successful ultrasound-guided core needle biopsy of a suspicious lymph node within the left groin, as detailed above. Pathology pending Reviewed, dictated and finalized at location A. R NUT RUNNER OPERATOR
--- NOTE | ~2024-03-19 | XR_ITS ---
EXAMINATION: XR chest 2V DATE: 03/19/2024 10:27 INDICATION: Cough TECHNIQUE: PA and lateral views of the chest were obtained. COMPARISON: None FINDINGS: Left lower lobar airspace opacities suspicious for pneumonia. Remainder the lungs are clear with no p ulmonary edema, pleural effusion or pneumothorax. Heart size is normal. There is a left-sided aortic arch. There is a contralateral masslike right paratracheal opacity which could represent a mediastina l mass, lymphadenopathy or vascular structure. IMPRESSION: 1. Left lower lobe pneumonia. 2. Right paratracheal masslike opacity which could represent lymphadenopathy, other mediastinal mass or vascular structure. Recommend contrast-enhanced chest CT for further evaluation. Reviewed, dictated and finalized at location A. STIAN COUNSELOR IMPRESSION: 1. Left lower lobe pneumonia. 2. Right paratracheal masslike opacity which could represent lymphadenopathy, o ther mediastinal mass or vascular structure. Recommend contrast-enhanced chest CT for further evaluation.
[2024-03-19 09:38] LABS: Influenza A QL RT-PCR Negative (Negative); Influenza B QL RT-PCR Negative (Negative); RSV RNA, RT-PCR Negative (Negative); SARS-CoV-2 RNA PCR Negative (Negative)
--- NOTE | 2024-03-19 10:11 | ED.URI ---
HPI - URI/Sore Throat General Chief Complaint: Upper Respiratory Infection Stated Complaint: fever, chills Time Seen by Provider: 03/19/24 10:07 Source: patient Mode of arrival: ambulatory Limitations: no limitations History of Present Illness HPI Narrative: 48 years old white male, homeless, came to the ED with coughing, sneezing, runny nose, postnasal discharge, chills, body aches feeling miserable for the last 2 days. Patient reports irritated skin rash in the ears bilaterally and right upper extremity under the armpit 4 weeks. Related Data Allergies Allergy/AdvReac Type Severity Reaction Status Date / Time No Known Allergies Allergy Verified 03/19/24 08:51 Review of Systems Review of Systems: All systems reviewed & are unremarkable except as noted in HPI and below PMFSH Past Medical History Medical History Tobacco dependence No pertinent past medical history Surgical History Surgical History No pertinent past surgical history Family History Family History Mother Family history non-contributory Social History Social History Social History: Surrogate medical decision maker: Pietro Nettleszeinab, sibling. Code status: Full code. Smoking packs per day: 1 Smoking cigarettes per day: 20.0 Smoking status: Current every day smoker Tobacco type: cigarettes Alcohol intake: never Substance use: never Do You Feel Safe in your Home?: Yes Lack of Transportation: No Lack of Food: Never True Current Housing: I Have Housing Concerned About Future Housing: No Difficulty Paying Gas/Electric Bills: No Difficulty Paying for Meds: No Currently Unemployed: No Education: Don't Know Difficulty w/ Childcare or Family Care: No Living arrangements: with family Spiritual care concerns: No Exam Narrative: General appearance: Well-developed, well-nourished Skin: Normal color pimples at the year externally and on bed consistent with staph infection Head: Normocephalic, nontraumatic Eyes: Clear conjunctiva ENT: Oropharyngeal erythema, runny nose Neck: Supple, nontender Chest and respiratory: Airway patent, no respiratory distress, no accessory muscle use Heart: Regular rate/rhythm Abdomen: Soft, nontender, no organomegaly, quiet bowel sounds Vascular: Normal peripheral pulses, normal capillary refill. Musculoskeletal: Normal range of motion, nontender back Neurologic: Alert and oriented ?3, CLINIC ADMINISTRATOR is normal as tested, no gross motor deficit Course Vital Signs Vital signs: Vital Signs Temperature 37.2 C 03/19/24 08:52 Pulse Rate 129 H 03/19/24 08:52 Respiratory Rate 16 03/19/24 08:52 Blood Pressure 123/89 03/19/24 08:52 Pulse Oximetry 98 03/19/24 08:52 Temperature 37.2 C 03/19/24 08:52 Pulse Rate 129 H 03/19/24 08:52 Respiratory Rate 16 03/19/24 08:52 Blood Pressure 123/89 03/19/24 08:52 Pulse Oximetry 98 03/19/24 11:02 Oxygen Delivery Room Air 03/19/24 11:02 MDM - URI/Sore Throat MDM Narrative Medical decision making narrative: Patient presents with upper respiratory viral infection like symptoms and skin infection like symptoms Tested negative for COVID, flu and RSV Chest x-ray showed PNEUMONIA, LUNG MASS BLOOD WORKUP TODAY INCLUDES CBC, CMP CAME A BLOOD CULTURE, LACTIC ACID SHOWED WBC OF 19.6, LACTIC ACID OF 0.6, OTHERWISE INSIGNIFICANT ABNORMALITY PATIENT TESTED NEGATIVE FOR COVID, FLU AND RSV CT CHEST AND ABDOMEN WITH IV CONTRAST SHOWED MEDIASTINAL LYMPHADENOPATHY, QUESTIONABLE METASTATIC MALIGNANCY ADMIT TO HOSPITALIST DIAGNOSIS PNEUMONIA, MEDIASTINAL LYMPHADENOPATHY PATIENT STARTED ON ROCEPHIN AND AZITHROMYCIN Differential Diagnosis Differential diagnosis: Likely other (As above) Lab Data Attestation: I reviewed the patient's lab results. 03/19/24 11:00 03/19/24 11:00 Labs: Lab Results 03/19/24 03/19/24 03/19/24 Range/Units 08:57 11:00 12:06 WBC 19.6 H (4.5-10.0) K/mm3 RBC 3.49 L (4.6-6.20) M/mm3 Hgb 11.6 L (14.0-18.0) g/dL Hct 33.5 L (42.0-52.0) % MCV 96.0 (80-100) fl MCH 33.2 (26-34) pg MCHC 34.6 (32-36) g/dl RDW 13.2 (11.5-14.5) % Plt Count 157 (150-375) k/mm3 MPV 11.4 H (7.4-10.4) fl Immature Gran % (Auto) 0.4 (0-0.5) % Neut % (Auto) 82.6 H (45.5-73.1) % Lymph % (Auto) 8.2 L (18.3-44.2) % Parker % (Auto) 8.4 (2.6-8.5) % Eos % (Auto) 0.1 (0-4.4) % Baso % (Auto) 0.3 (0.2-1.2) % Lymph # (Auto) 1.60 (0.9-3.2) K/mm3 Parker # (Auto) 1.7 H (0.1-0.6) K/mm3 Eos # (Auto) 0.0 (0-0.3) K/mm3 Baso # (Auto) 0.1 (0.0-0.1) K/mm3 Abs Immat Gran (auto) 0.08 H (0.00-0.031) K/mm3 Absolute Neuts (auto) 16.2 H (1.3-6.7) K/mm3 Absolute Nucleated RBC 0.000 (0.0-0.012) K/mm3 Nucleated RBC % 0.0 (0.0-0.2) % Sodium 134 L (137-145) mmol/L Potassium 4.1 (3.4-5.0) mmol/L Chloride 100 (98-107) mmol/L Carbon Dioxide 25 (22-30) mmol/L Anion Gap 9 (4-12) mmol/L BUN 23 H (9-20) mg/dL Creatinine 0.89 (0.7-1.3) mg/dL Estim Creat Clear Calc 96 ml/min Estimated GFR > 60 (59 - ) Glucose 102 (65-110) mg/dL Lactic Acid 0.6 L (0.7-2.0) mmol/L Calcium 8.3 L (8.4-10.2) mg/dL Total Bilirubin 0.8 (0.2-1.3) mg/dL AST 36 (17-59) U/L ALT 24 (6-50) U/L Alkaline Phosphatase 87 (38-126) U/L Total Protein 7.0 (6.3-8.2) g/dL Albumin 3.9 (3.5-5.1) g/dL Influenza A (RT-PCR) Negative (Negative) Influenza B (RT-PCR) Negative (Negative) RSV (RT-PCR) Negative (Negative) SARS-CoV-2 RNA (RT-PCR) Negative (Negative) Imaging Data My impression: Impressions Chest X-Ray 03/19/24 10:33 IMPRESSION: 1. Left lower lobe pneumonia. 2. Right paratracheal masslike opacity which could represent lymphadenopathy, other mediastinal mass or vascular structure. Recommend contrast-enhanced chest CT for further evaluation. Chest/Abdomen CT 03/19/24 12:05 IMPRESSION: 1. Mediastinal lymphadenopathy suspicious for malignancy either lymphoma or metastatic disease. No other lesions suspicious for primary or metastatic disease identified in the chest or abdomen. 2. Pneumonia in the bilateral lower lobes. Radiologist's impression: Impressions Chest X-Ray 03/19/24 10:33 IMPRESSION: 1. Left lower lobe pneumonia. 2. Right paratracheal masslike opacity which could represent lymphadenopathy, other mediastinal mass or vascular structure. Recommend contrast-enhanced chest CT for further evaluation. Critical Care Time Critical Care Time Critical Care Time: No Discharge Plan Discharge Clinical Impression: Pneumonia, Lymphadenopathy, mediastinal Patient Disposition: Still a Patient Condition: Stable Patient Language: Lithuanian Prescriptions: No Action hydrocodone-acetaminophen 5-325 mg Tablet 1 tablet PO Q6H PRN (Reason: Pain Rated 4-6) 3 Days Qty: 6 0RF linezolid 600 mg Tablet 600 mg PO Q12HR Qty: 23 0RF mupirocin 2 % Ointment 1 applic EACH NARE Q12HR 10 Days Qty: 15 0RF lisinopril-hydrochlorothiazide 10-12.5 mg tablet 1 tablet PO DAILY 30 Days Qty: 30 1RF amoxicillin-pot clavulanate 875-125 mg tablet 1 tablet PO Q12H Qty: 14 0RF ibuprofen 600 mg tablet 600 mg PO TID PRN (Reason: fever or pain) Qty: 14 0RF Follow-up/Referrals: UNKNOWN,DOCTOR [Non-Staff] -
[2024-03-19] MEDS: ACETAMINOPHEN 325 MG TABLET 650 MG PO (11:05)
[2024-03-19] MEDS: SODIUM CHLORIDE 0.9% IV 1,000 ML 999 ML IV CONT (11:05)
[2024-03-19] MEDS: KETOROLAC 30 MG/ML VIAL (*BKC) IV PUSH (11:06)
[2024-03-19 11:10] LABS: Basophils Absolute Auto 0.1 K/mm3 (0.0-0.1); Basophils Percent Auto 0.3 % (0.2-1.2); Eosinophils Percent Auto 0.1 % (0-4.4); Hematocrit 33.5 % (42.0-52.0); Hemoglobin 11.6 g/dL (14.0-18.0); Immature Granulocyte Absolute 0.08 K/mm3 (0.00-0.031); Immature Granulocyte Percent A 0.4 % (0-0.5); Lymphocytes Percent Auto 8.2 % (18.3-44.2); Mean Corpuscular HGB Conc 34.6 g/dl (32-36); Mean Corpuscular Hemoglobin 33.2 pg (26-34); Mean Platelet Volume 11.4 fl (7.4-10.4); Monocytes Absolute Auto 1.7 K/mm3 (0.1-0.6); Monocytes Percent Auto 8.4 % (2.6-8.5); Neutrophils Absolute Auto 16.2 K/mm3 (1.3-6.7); Neutrophils Percent Auto 82.6 % (45.5-73.1); Platelet Count Result 157 k/mm3 (150-375); Red Blood Count 3.49 M/mm3 (4.6-6.20); Red Cell Distribution Width 13.2 % (11.5-14.5); White Blood Count 19.6 K/mm3 (4.5-10.0)
[2024-03-19 11:20] LABS: Alanine Aminotransferase 24 U/L (6-50); Albumin Level 3.9 g/dL (3.5-5.1); Alkaline Phosphatase 87 U/L (38-126); Anion Gap 9 mmol/L (4-12); Aspartate Amino Transferase 36 U/L (17-59); Bilirubin,Total 0.8 mg/dL (0.2-1.3); Blood Urea Nitrogen 23 mg/dL (9-20); Calcium 8.3 mg/dL (8.4-10.2); Carbon Dioxide 25 mmol/L (22-30); Chloride 100 mmol/L (98-107); Estimated CRCL calculation 96 ml/min; Estimated Glomerular Filt Rate > 60; Glucose 102 mg/dL (65-110); Potassium 4.1 mmol/L (3.4-5.0); Sodium 134 mmol/L (137-145)
[2024-03-19] MEDS: AZITHROMYCIN 500 MG/NS 250 ML 500 MG/250 ML BAG 250 MG IVPB (12:29)
[2024-03-19 12:32] LABS: Lactic Acid Reflex 0.6 mmol/L (0.7-2.0)
--- NOTE | 2024-03-19 12:45 | P.HP_ITS ---
H&P: HPI History of Present Illness Date/Time: 03/19/24 12:45 Chief Complaint: Shortness of breath Narrative: 48-year-old male no known medical history presents the hospital with shortness of breath. Patient states that he has had shortness of breath and cough for the last couple days. And swelling in his left armpit. Patient denies fevers chills, weight loss, poor appetite or history of cancer. He states that his mother has history of breast cancer. He denies nausea or vomiting. In the ED the patient is tachycardic at 136, leukocytosis at 19.6, influenza A/B, RSV and COVID negative, chest x-ray shows left lower pneumonia, and right paratracheal masslike opacity which could represent lymphadenopathy, other mediastinal mass or vascular structure. Recommend contrast-enhanced chest CT for further evaluation. Chest CT and abdomen shows Mediastinal lymphadenopathy suspicious for malignancy either lymphoma or metastatic disease. No other lesions suspicious for primary or metastatic disease identified in the chest or abdomen. Pneumonia in the bilateral lower lobes. Patient will be admitted for IV antibiotics for bilateral pneumonia. Blood cultures pending. Dr. Rivas from pulmonology consulted and agrees to see patient tomorrow. Review of Systems Review of Systems: 12 systems were reviewed and are negativ e except for as per HPI. [facility] Past Medical History Medical History Tobacco dependence No pertinent past medical history Surgical History Surgical History No pertinent past surgical history Family History Family History (Updated 03/19/24 @ 15:47 by Brendon Doll RN) Mother Breast cancer Heart disease Social History Social History Social History: Surrogate medical decision maker: Pietro Swartz, sibling. Code status: Full code. Smoking packs per day: 1 Smoking cigarettes per day: 20.0 Years smoked: 30 Smoking pack-years: 30.00 Smoking status: Current every day smoker Tobacco type: cigarettes Alcohol intake: never Substance use: current Substance use type: marijuana Do You Feel Safe in your Home?: Yes Lack of Transportation: No Lack of Food: Never True Current Housing: I Do Not Have Housing Concerned About Future Housing: YES Difficulty Paying Gas/Electric Bills: YES Difficulty Paying for Meds: No Currently Unemployed: No Education: Associate Degree Difficulty w/ Childcare or Family Care: No Living arrangements: with family Spiritual care concerns: No Meds Home Medications and Allergies Home Medications ?Medication ?Instructions ?Recorded ?Confirmed ?Type No Home Medications 03/19/24 03/19/24 History Allergies Allergy/AdvReac Type Severity Reaction Status Date / Time No Known Allergies Allergy Verified 03/19/24 15:33 Vital Signs Vital Signs - 24 hr 03/19/24 08:52 03/19/24 11:02 Temperature 99.0 F Pulse Rate 129 H Respiratory Rate 16 Blood Pressure 123/89 Pulse Oximetry 98 98 Oxygen Delivery Room Air H&P: Results Labs Labs: Short CBC 03/19/24 Range/Units 11:00 WBC 19.6 H (4.5-10.0) K/mm3 Hgb 11.6 L (14.0-18.0) g/dL Hct 33.5 L (42.0-52.0) % Plt Count 157 (150-375) k/mm3 BMP 03/19/24 11:00 Sodium 134 L Potassium 4.1 Chloride 100 Carbon Dioxide 25 BUN 23 H Creatinine 0.89 Glucose 102 Calcium 8.3 L Liver Function 03/19/24 Range/Units 11:00 Total Bilirubin 0.8 (0.2-1.3) mg/dL AST 36 (17-59) U/L ALT 24 (6-50) U/L Alkaline Phosphatase 87 (38-126) U/L Albumin 3.9 (3.5-5.1) g/dL Assessment and Plan Assessment and plan (1) Lymphadenopathy, mediastinal: Code(s): R59.0 - Localized enlarged lymph nodes Status: Acute Assessment and Plan: Dr. Rob prakash will see patient morning BMP, CBC, Mag, PTT INR in a.m. Okay for diet (2) Bilateral pneumonia: Code(s): J18.9 - Pneumonia, unspecified organism Status: Acute Assessment and Plan: With leukocytosis at 19.6, influenza A/B, RSV and COVID negative IV Rocephin and azithromycin Guaifenesin Daily CBC (3) Tachycardia: Code(s): R00.0 - Tachycardia, unspecified Status: Acute Assessment and Plan: Improved Telemetry monitoring IV fluids for hydration Plan Case coordination for [facility] resources Quality VTE Prophylaxis VTE prophylaxis: mechanical ordered and pharmacologic ordered Hospitalist MIPS Advance Care Plan I have confirmed that the patient's Advanced Care Plan is present, code status is documented, or surrogate decision maker is listed in patient medical record.: Yes Medication Reconciliation I have utilized all available resources to obtain, update and review the patients current medications (includes all prescriptions, OTC, herbals, cannabis, and nutritional supplements).: Yes
[2024-03-19] MEDS: ALBUTEROL SULFATE NEB 2.5 MG/3 ML INH INHALATION ×2 (14:10→20:19)
[2024-03-19] MEDS: guaiFENesin 600 MG/DEXTROMETHORPHAN 30 MG SR TAB 12 HR 1 TAB PO ×2 (14:18→22:29)
--- NOTE | 2024-03-19 15:10 | ADMGEN ---
This patient, Wang Rodney, was admitted to Medical Room 244-. Patient/family oriented to hospital policies and general routines including ID bracelet, bed and alarms, visiting hours, pain management, procedures, bathroom and other care routines, personal items, smoking policy, room service/diet, and visiting hours. Information on how to activate the Rapid Response Team has been discussed. Patient/Family are encouraged to report perceived risks to care and to ask questions if they do not understand what they are told or what they should do.
[2024-03-19] MEDS: SODIUM CHLORIDE 0.9% IV 1,000 ML 100 ML IV CONT (16:01)
[2024-03-20] VITALS (10 sets, daily range): BP systolic 116–145; BP diastolic 70–96; PULSE 68–95; RESP 18–20; TEMP 36.3–37.2; O2SAT 95–100
[2024-03-20] MEDS: ALBUTEROL SULFATE NEB 2.5 MG/3 ML INH INHALATION ×2 (01:55→08:50)
[2024-03-20] MEDS: SODIUM CHLORIDE 0.9% IV 1,000 ML 100 ML IV CONT (02:05)
[2024-03-20 05:28] LABS: Basophils Percent Auto 0.5 % (0.2-1.2); Eosinophils Absolute Auto 0.2 K/mm3 (0-0.3); Eosinophils Percent Auto 2.1 % (0-4.4); Hematocrit 34.1 % (42.0-52.0); Hemoglobin 10.8 g/dL (14.0-18.0); Immature Granulocyte Absolute 0.03 K/mm3 (0.00-0.031); Immature Granulocyte Percent A 0.3 % (0-0.5); Immature Platelet Fraction Pct 7.4 % (0.9-11.2); Lymphocytes Absolute Auto 1.23 K/mm3 (0.9-3.2); Lymphocytes Percent Auto 14.1 % (18.3-44.2); Mean Corpuscular HGB Conc 31.7 g/dl (32-36); Mean Corpuscular Hemoglobin 32.8 pg (26-34); Mean Corpuscular Volume 103.6 fl (80-100); Mean Platelet Volume 11.7 fl (7.4-10.4); Monocytes Absolute Auto 0.7 K/mm3 (0.1-0.6); Monocytes Percent Auto 8.4 % (2.6-8.5); Neutrophils Absolute Auto 6.5 K/mm3 (1.3-6.7); Neutrophils Percent Auto 74.6 % (45.5-73.1); Nucleated Red Blood Cells Perc 0.8 % (0.0-0.2); Platelet Count Result 137 k/mm3 (150-375); Red Blood Count 3.29 M/mm3 (4.6-6.20); Red Cell Distribution Width 13.1 % (11.5-14.5); White Blood Count 8.7 K/mm3 (4.5-10.0)
[2024-03-20 05:36] LABS: INR 1.2; Prothrombin Time 15.4 Seconds (11.1-14.7)
[2024-03-20 05:37] LABS: Partial Thromboplastin Time 44.9 Seconds (22.3-36.8)
[2024-03-20 05:41] LABS: Anion Gap 6 mmol/L (4-12); Blood Urea Nitrogen 21 mg/dL (9-20); Calcium 7.5 mg/dL (8.4-10.2); Carbon Dioxide 27 mmol/L (22-30); Chloride 104 mmol/L (98-107); Estimated CRCL calculation 116 ml/min; Estimated Glomerular Filt Rate > 60; Glucose 102 mg/dL (65-110); Magnesium 2.1 mg/dL (1.6-2.3); Potassium 3.8 mmol/L (3.4-5.0); Sodium 137 mmol/L (137-145)
--- NOTE | 2024-03-20 07:13 | PM.IMPN ---
Progress Note: A&P Assessment and Plan (1) Bilateral pneumonia: Code(s): J18.9 - Pneumonia, unspecified organism Status: Acute Assessment and Plan: - CXR: Left lower lobe pneumonia. Right paratracheal masslike opacity which could represent lymphadenopathy, other mediastinal mass or vascular structure. - Chest/abdomen CT: Mediastinal lymphadenopathy suspicious for malignancy either lymphoma or metastatic disease. No other lesions suspicious for primary or metastatic disease identified in the chest or abdomen. Pneumonia in the bilateral lower lobes. - started on CAP tx: azithromycin ceftriaxone started on 03/19, MRSA postive started on vancomycin on 03/20 - Viral PCR: negative for Flu/COVID/RSV - MRSA positive - blood cultures obtained on 03/19: pending - no supplemental O2 requirement - Monitor vital signs, I&Os, neuro status and patient is a fall risk - Follow WBC, serum electrolytes, temperature curves and cultures - Pulmonology consulted urine for Legionella, urine for pneumococcal antigen, serum mycoplasma IgM and a respiratory pathogen panel HIV negative Repeat an chest x-ray on 03/21/2024. (2) Lymphadenopathy, mediastinal: Code(s): R59.0 - Localized enlarged lymph nodes Status: Acute Assessment and Plan: Concerning for cancer (primary or metastatic), lymphoma 27 pack year smoking history - Possible axillary lymphadenopathy, however was unable to palpate this myself. Per pulmonology felt more indurated than anything. - CXR: Left lower lobe pneumonia. Right paratracheal masslike opacity which could represent lymphadenopathy, other mediastinal mass or vascular structure. - Chest/abdomen CT: Mediastinal lymphadenopathy suspicious for malignancy either lymphoma or metastatic disease. No other lesions suspicious for primary or metastatic disease identified in the chest or abdomen. Pneumonia in the bilateral lower lobes. - Pulmonology consulted, appreciate recommendations HIV negative On 03/21/2024 will review case with colleague and review CT scan with radiology and discussed with them the subtle findings in his bilateral axillary regions to determine best diagnostic approach in this homeless man with active pneumonia. (3) COPD (chronic obstructive pulmonary disease): Code(s): J44.9 - Chronic obstructive pulmonary disease, unspecified Status: Acute Assessment and Plan: Does not appear in acute exacerbation. - CXR: Left lower lobe pneumonia. Right paratracheal masslike opacity which could represent lymphadenopathy, other mediastinal mass or vascular structure. - Chest/abdomen CT: Mediastinal lymphadenopathy suspicious for malignancy either lymphoma or metastatic disease. No other lesions suspicious for primary or metastatic disease identified in the chest or abdomen. Pneumonia in the bilateral lower lobes. - Pulmonology consulted does not need inhaled or systemic steroids at this time change his albuterol nebulizer to DuoNebs q.6 hours, change to guaifenesin 1200 mg p.o. b.i.d. abg ordered check alpha 1 anti trypsin Time Spent With Patient Time with patient: 25 - 35 minutes Subjective Date/time seen: 03/20/24 07:13 Interval history: 48 year old homeless male with no signifant past medical history presents to the hospital for shortness of breath. Patient is pleasant sitting up in his bed. He continues to endorse shortness of breath and body aches with a productive cough but notes that these have improved since admission. He complains of axillary pain more so to the right than the left. He states that he developed a small lump in his right axilla first then his left. He denies any redness or rash to the area. Patient has no other complaints denying chest pain, palpitations, nausea/vomiting and abdominal pain. Review of Systems Review of Systems: All systems reviewed & are unremarkable except as noted in HPI and below Exam Narrative: AF HR 73 RR 18 Spo2 99 BP 116/83 General: male in no acute respiratory distress who is nontoxic appearing, lying semi recumbent in bed. HEENT: Normocephalic. Atraumatic. Extraocular movement intact. Sclera clear and anicteric. No facial asymmetry. Chest: Lungs are crackles to auscultation bilaterally. No wheezes or crackles. CV: Heart was regular rate and rhythm. S1/S2. No murmurs, gallops, or rubs. Abd: Abdomen was soft. Nontender. Nondistended. Positive bowel sounds. No organomegaly or masses. Ext: No clubbing, cyanosis, or edema. 2+ DP pulses bilaterally. Unable to palpate axillary nodes. Neuro: Patient is alert and oriented x4. Speech is clear. Objective Data Vital Signs Vital Signs: Vital Signs - 24 hr 03/19/24 08:52 03/19/24 11:02 03/19/24 13:46 Temperature 99.0 F 97.5 F L Pulse Rate 129 H 84 Respiratory Rate 16 16 Blood Pressure 123/89 128/88 Pulse Oximetry 98 98 100 Oxygen Delivery Room Air Fraction of Inspired Oxygen 03/19/24 14:10 03/19/24 14:10 03/19/24 14:15 Temperature Pulse Rate 76 83 Respiratory Rate 12 16 Blood Pressure Pulse Oximetry 98 Oxygen Delivery Room Air Fraction of Inspired Oxygen 03/19/24 14:44 03/19/24 15:28 03/19/24 20:00 Temperature 97.4 F L 97.3 F L Pulse Rate 82 68 82 Respiratory Rate 18 18 18 Blood Pressure 120/86 104/73 101/51 L Pulse Oximetry 98 100 100 Oxygen Delivery Fraction of Inspired Oxygen 03/19/24 20:00 03/19/24 20:19 03/19/24 20:20 Temperature Pulse Rate 74 Respiratory Rate 18 Blood Pressure Pulse Oximetry 99 Oxygen Delivery Room Air Room Air Fraction of Inspired Oxygen 03/19/24 20:29 03/19/24 21:59 03/20/24 00:00 Temperature 97.3 F L 97.6 F Pulse Rate 78 76 83 Respiratory Rate 18 18 18 Blood Pressure 101/51 L 116/70 Pulse Oximetry 100 97 Oxygen Delivery Fraction of Inspired Oxygen 03/20/24 00:00 03/20/24 00:00 03/20/24 01:58 Temperature 97.6 F Pulse Rate 83 91 77 Respiratory Rate 18 18 Blood Pressure 116/70 Pulse Oximetry 97 Oxygen Delivery Fraction of Inspired Oxygen 03/20/24 02:08 03/20/24 04:00 03/20/24 04:00 Temperature 98.0 F Pulse Rate 79 89 92 Respiratory Rate 18 18 Blood Pressure 143/91 H Pulse Oximetry 99 Oxygen Delivery Fraction of Inspired Oxygen 03/20/24 06:00 Temperature 97.4 F L Pulse Rate 91 Respiratory Rate 18 Blood Pressure 145/96 H Pulse Oximetry 95 Oxygen Delivery Fraction of Inspired Oxygen Intake/Output Intake/Output: Intake & Output 03/17/24 03/18/24 03/19/24 03/20/24 23:59 23:59 23:59 23:59 Intake Total 1780 1000 Balance 1780 1000 Meds/Results Medications: Active Medications Generic Name Dose Route Start Last Admin Trade Name Freq PRN Reason Stop Dose Admin Acetaminophen 650 mg 03/19/24 12:42 Acetaminophen 325 Mg Tablet PO Q4H PRN Mild Pain (1-3) or Fever Hydrocodone Bitart/Acetaminophen 1 tab 03/19/24 13:03 Hydrocodone/Acetaminophen (*Crx) 5-325 Mg Tablet PO Q4H PRN Pain Rated 4-6 Albuterol 2.5 mg 03/19/24 14:00 03/20/24 01:55 Albuterol Sulfate Neb 2.5 Mg/3 Ml Inh INHALATION 2.5 mg Q6HRT DAQUAN Administration Enoxaparin Sodium 40 mg 03/20/24 09:00 Enoxaparin 40 Mg/0.4 Ml Syringe SUB-Q DAILY DAQUAN Guaifenesin/Dextromethorphan 1 tab 03/19/24 21:00 03/19/24 22:29 Guaifenesin 600 Mg/Dextromethorphan 30 Mg Sr Tab 12 Hr PO 1 tab Q12HR DAQUAN Administration Ceftriaxone Sodium 1 gm in 50 mls @ 100 mls/hr 03/19/24 10:50 03/19/24 11:36 Rocephin 1 Gm/Ns 50 Ml IVPB Infused Q24H DAQUAN Infusion Azithromycin 500 mg in 250 mls @ 250 mls/hr 03/19/24 10:50 03/19/24 13:45 Zithromax IVPB Infused Q24H DAQUAN Infusion Sodium Chloride 1,000 mls @ 100 mls/hr 03/19/24 13:05 03/20/24 02:05 Normal Saline Iv IV CONT 100 mls/hr .Q10H DAQUAN Administration Radiology Results: ITS Impressions Chest X-Ray 03/19/24 10:33 IMPRESSION: 1. Left lower lobe pneumonia. 2. Right paratracheal masslike opacity which could represent lymphadenopathy, other mediastinal mass or vascular structure. Recommend contrast-enhanced chest CT for further evaluation. Chest/Abdomen CT 03/19/24 12:05 IMPRESSION: 1. Mediastinal lymphadenopathy suspicious for malignancy either lymphoma or metastatic disease. No other lesions suspicious for primary or metastatic disease identified in the chest or abdomen. 2. Pneumonia in the bilateral lower lobes. Labs Labs: Laboratory Results - last 24 hr 03/19/24 03/19/24 03/19/24 08:57 11:00 12:06 WBC 19.6 H RBC 3.49 L Hgb 11.6 L Hct 33.5 L MCV 96.0 MCH 33.2 MCHC 34.6 RDW 13.2 Plt Count 157 MPV 11.4 H Immature Gran % (Auto) 0.4 Neut % (Auto) 82.6 H Lymph % (Auto) 8.2 L [place] % (Auto) 8.4 Eos % (Auto) 0.1 Baso % (Auto) 0.3 Lymph # (Auto) 1.60 [place] # (Auto) 1.7 H Eos # (Auto) 0.0 Baso # (Auto) 0.1 Abs Immat Gran (auto) 0.08 H Absolute Neuts (auto) 16.2 H Absolute Nucleated RBC 0.000 Nucleated RBC % 0.0 % Immature Plt Fraction PT INR APTT Sodium 134 L Potassium 4.1 Chloride 100 Carbon Dioxide 25 Anion Gap 9 BUN 23 H Creatinine 0.89 Estim Creat Clear Calc 96 Estimated GFR > 60 Glucose 102 Lactic Acid 0.6 L Calcium 8.3 L Magnesium Total Bilirubin 0.8 AST 36 ALT 24 Alkaline Phosphatase 87 Total Protein 7.0 Albumin 3.9 Influenza A (RT-PCR) Negative Influenza B (RT-PCR) Negative RSV (RT-PCR) Negative SARS-CoV-2 RNA (RT-PCR) Negative 03/20/24 04:52 WBC 8.7 RBC 3.29 L Hgb 10.8 L Hct 34.1 L MCV 103.6 H D MCH 32.8 MCHC 31.7 L RDW 13.1 Plt Count 137 L MPV 11.7 H Immature Gran % (Auto) 0.3 Neut % (Auto) 74.6 H Lymph % (Auto) 14.1 L [place] % (Auto) 8.4 Eos % (Auto) 2.1 Baso % (Auto) 0.5 Lymph # (Auto) 1.23 [place] # (Auto) 0.7 H Eos # (Auto) 0.2 Baso # (Auto) 0.0 Abs Immat Gran (auto) 0.03 Absolute Neuts (auto) 6.5 Absolute Nucleated RBC 0.070 H Nucleated RBC % 0.8 H % Immature Plt Fraction 7.4 PT 15.4 H INR 1.2 APTT 44.9 H Sodium 137 Potassium 3.8 Chloride 104 Carbon Dioxide 27 Anion Gap 6 BUN 21 H Creatinine 0.75 Estim Creat Clear Calc 116 Estimated GFR > 60 Glucose 102 Lactic Acid Calcium 7.5 L Magnesium 2.1 Total Bilirubin AST ALT Alkaline Phosphatase Total Protein Albumin Influenza A (RT-PCR) Influenza B (RT-PCR) RSV (RT-PCR) SARS-CoV-2 RNA (RT-PCR) Quality VTE Prophylaxis VTE prophylaxis: mechanical ordered
[2024-03-20] MEDS: ACETAMINOPHEN 325 MG TABLET 650 MG PO (08:32)
[2024-03-20] MEDS: guaiFENesin 600 MG/DEXTROMETHORPHAN 30 MG SR TAB 12 HR 1 TAB PO (08:34)
[2024-03-20] MEDS: ENOXAPARIN 40 MG/0.4 ML SYRINGE SUB-Q (08:34)
--- NOTE | 2024-03-20 10:08 | PM.CNPUL ---
Assessment and Plan Assessment and plan (1) Bilateral pneumonia: Code(s): J18.9 - Pneumonia, unspecified organism Status: Acute Assessment and Plan: patient is a homeless man with a history of incarceration last on February of 2023 who presents with 1 month history of nasal and congestion, intermittent rhinorrhea, 4 days feeling hot and cold with phlegm and production that was green, 3 days cough and shortness of breath. he had a leukocytosis of 19.6, chest x-ray with left lower lobe infiltrate and a CT scan with evidence of a left lower lobe pneumonia and a right perihilar pneumonia. COVID, influenza, RSV RT PCR studies negative. Patient was started on ceftriaxone and azithromycin. MRSA swab is positive. Plan: Clinically is unchanged after 24 hours of antibiotics. Will continue ceftriaxone and azithromycin day 2. Will add vancomycin. will send urine for Legionella, urine for pneumococcal antigen, serum mycoplasma IgM and a respiratory pathogen panel. Will check HIV screen. I will repeat an chest x-ray on 03/21/2024. Discussed with Sudha Thomas, will follow with you. (2) Mediastinal mass: Code(s): J98.59 - Other diseases of mediastinum, not elsewhere classified Status: Acute Assessment and Plan: Patient with 27 pack year tobacco use and currently with pneumonia with right paratracheal and subcarinal mediastinal mass without any concurrent pulmonary nodules or masses. Patient complains of a right axillary cyst -tender area for 1 week and a left axillary cyst area for 1 day. To me this feels like an indurated area at the insertion of his tricuspid muscle rather than discrete lymphadenopathy. Etiology includes: cancer (primary or metastatic), lymphoma, doubt reactive lymphadenopathy from pneumonia. Plan: I will check an HIV and if this is positive, this could represent HIV related lymphoma. On 03/21/2024 will review case with my colleague and review CT scan with radiology and discussed with them the subtle findings in his bilateral axillary regions to determine best diagnostic approach in this homeless man with active pnuemonia. Regarding future living arrangements and follow-up: I spoke to care coordination and patient does have a Medicaid plan and does have access to subsidized housing through Medicaid. patient tells me he recently got approved for food stamps and gets about 250 dollars a month. [facility] will give him resources for food and longterm but it will be the patient's responsibility to look into these facilities and to try to find temporary housing. He will be responsible to follow up with his physicians in the future. (3) COPD (chronic obstructive pulmonary disease): Code(s): J44.9 - Chronic obstructive pulmonary disease, unspecified Status: Acute Assessment and Plan: [address] scan of the chest on 03/19/2024 shows mild apical predominant paraseptal and centrilobular emphysema. I have no PFTs. white blood cell count on admission with pneumonia is 19.6 with eosinophils 0.1%=20/uL. Plan: currently patient has no active wheezing. I do not think this is a COPD exacerbation and he does not need inhaled or systemic steroids at this time. Will change his albuterol nebulizer to DuoNebs q.6 hours, change to guaifenesin 1200 mg p.o. b.i.d.. currently he is on room air with saturations 99%. I will check a rest room air blood gas to assess for hypercarbic respiratory failure. I will check an alpha 1 anti trypsin in the morning. History of Present Illness History of Present Illness Consult date: 03/20/24 Chief complaint: pneumonia,mediastinal,lymphadenopathy Narrative: 03/20/2022: This is a new pulmonary consult for pneumonia and mediastinal mass. 48-year-old tobacco user who is homeless with no significant past medical history currently on no medications. Patient is homeless and has a history of being incarcerated from age [age] and then being in and out of half-way from 2009 to February of 2023. in January of 2023 approximately 1 month prior to being discharged he was tested for HIV which was negative. In his usual state of health the patient has no respiratory issues and no respiratory limitations in his activities of daily living. Patient smoked tobacco from 21 to current at 1 pack per day he for total of 27 pack years. Patient smokes marijuana 2 to 3 times a week from age 27 to current. Patient snorted methamphetamine for 2 months from October 2020 to after his mom . Patient denied snorting cocaine. Patient denies ever using IV drugs. Patient denies heroin use. Patient has no family other than a brother who is also homeless. Patient worked in the [employer] profession for his working career. 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 Last time he did this work was 2020. Patient denies stand blasting, welding, asbestos work, professional painting, steel miller head wet process, coal mining, brick or concrete work. One month ago he developed sinus congestion and rhinorrhea. Four days ago he developed hot and cold spells and increased phlegm production which was green. Three days ago he developed cough and 3 days ago he developed shortness of breath. Of note 1 week ago the patient noticed a area of swelling almost like a cyst in his right armpit which persists. One day ago the patient noticed a cyst or swelling in his left armpit that persists. He denies any other skin rashes, new arthritis, change in bowel or urine habits. Symptoms progressed and he presented to [facility] on 03/19/2024 and they did not meet his care expectations and he left and presented to [facility]. In the emergency room his blood pressure was 123/89, heart rate 129, respiration rate 16, temperature 37.2?, rest room air saturation 98%. White blood cell count was 19.6 was 0.1% eosinophils, creatinine 0.89, lactic acid 0.6, COVID, influenza and RSV RT PCR studies negative. Chest x-ray with left lower lobe pneumonia and right paratracheal mass. CT with contrast showed mild apical predominant paraseptal and centrilobular emphysema. Left lower lobe infiltrates, right paratracheal infiltrate and a right paratracheal mass that extended to the subcarinal region. Patient was placed on ceftriaxone and admitted to the hospital. 03/20/2024. The patient tells me he is the same today. His cough and green phlegm are stable, he still is having sweats, his congestion is the same and his body aches are the same. He is afebrile. His room air saturations are 99%. His white blood cell count is 8.7, his creatinine is 0.75. DATA: 03/19/2024: EXAMINATION: CT chest abdomen w con INDICATION: Assess for malignancy with abnormal chest radiograph COMPARISON: None FINDINGS: Chest: Mild apical predominant paraseptal emphysema. Patchy groundglass opacities and consolidation in the basilar segments of the left lower lobe. There is additional dense consolidation and small amount surrounding patchy groundglass opacity in the anterobasilar right lower lobe. No other suspicious pulmonary nodules, pulmonary edema or pleural effusion. Heart size is normal. Atherosclerotic coronary artery calcifications. Small pericardial effusion. Thoracic aorta is normal in caliber with no dissection. Additional enhancing mediastinal mass including a 4.9 x 2.8 cm precarinal mass, 4.5 x 2.8 cm right paratracheal mass and 3.4 x 1.8 cm subcarinal mass which are suspicious for either lymphoma or metastatic disease. No other evident pathologically enlarged lymphadenopathy in the chest or visualized lower neck. Mild thoracic spondylosis. Abdomen: Liver, gallbladder, spleen, pancreas, bilateral adrenal glands and kidneys are normal. Visualized portions of bowels are unremarkable with no obstruction or abnormal bone or thickening. No pathologically enlarged abdominal or upper pelvic lymphadenopathy. Minimal lumbar spondylosis. IMPRESSION: 1. Mediastinal lymphadenopathy suspicious for malignancy either lymphoma or metastatic disease. No other lesions suspicious for primary or metastatic disease identified in the chest or abdomen. 2. Pneumonia in the bilateral lower lobes. 03/19/2024: EXAMINATION: XR chest 2V INDICATION: Cough TECHNIQUE: PA and lateral views of the chest were obtained. COMPARISON: None FINDINGS: Left lower lobar airspace opacities suspicious for pneumonia. Remainder the lungs are clear with no pulmonary edema, pleural effusion or pneumothorax. Heart size is normal. There is a left-sided aortic arch. There is a contralateral masslike right paratracheal opacity which could represent a mediastinal mass, lymphadenopathy or vascular structure. IMPRESSION: 1. Left lower lobe pneumonia. 2. Right paratracheal masslike opacity which could represent lymphadenopathy, other mediastinal mass or vascular structure. Recommend contrast-enhanced chest CT for further evaluation. Review of Systems Constitutional: Constitutional: Reports no additional constitutional complaints Eyes: Eyes: Reports no additional eye complaints ENT: Reports system reviewed and no additional complaints, except as documented Cardiovascular: Cardiovascular: Reports no additional cardiovascular complaints Respiratory: Respiratory: Reports no additional respiratory complaints Gastrointestinal: Gastrointestinal: Reports no additional gastrointestinal complaints Musculoskeletal: Musculoskeletal: Reports no additional musculoskeletal complaints Neurologic: Reports system reviewed and no additional complaints, except as documented Psychiatric: Psychiatric: Reports no additional psychiatric complaints Endocrine: Endocrine: Reports no additional endocrine complaints Hematologic/Lymphatic: Hematologic/Lymphatic: Reports no additional hematologic/lymphatic complaints Allergic/Immunologic: Allergic/Immunologic: Reports no additional allergic/immunologic complaints [facility] Past Medical History Medical History Tobacco dependence No pertinent past medical history Surgical History Surgical History No pertinent past surgical history Family History Family History (Updated 03/19/24 @ 15:47 by Brendon Doll RN) Mother Breast cancer Heart disease Social History Social History Social History: Surrogate medical decision maker: Pietro Swartz, sibling. Code status: Full code. Smoking packs per day: 1 Smoking cigarettes per day: 20.0 Years smoked: 30 Smoking pack-years: 30.00 Smoking status: Current every day smoker Tobacco type: cigarettes Alcohol intake: never Substance use: current Substance use type: marijuana Do You Feel Safe in your Home?: Yes Lack of Transportation: No Lack of Food: Never True Current Housing: I Do Not Have Housing Concerned About Future Housing: YES Difficulty Paying Gas/Electric Bills: YES Difficulty Paying for Meds: No Currently Unemployed: No Education: Associate Degree Difficulty w/ Childcare or Family Care: No Living arrangements: with family Spiritual care concerns: No Meds Home Medications and Allergies Home Medications ?Medication ?Instructions ?Recorded ?Confirmed ?Type No Home Medications 03/19/24 03/19/24 History Allergies Allergy/AdvReac Type Severity Reaction Status Date / Time No Known Allergies Allergy Verified 03/19/24 15:33 Vital Signs Vital Signs - 24 hr 03/19/24 11:02 03/19/24 13:46 03/19/24 14:10 Temperature 36.4 C L Pulse Rate 84 Respiratory Rate 16 Blood Pressure 128/88 Pulse Oximetry 98 100 98 Oxygen Delivery Room Air Room Air Fraction of Inspired Oxygen 21 03/19/24 14:10 03/19/24 14:15 03/19/24 14:44 Temperature Pulse Rate 76 83 82 Respiratory Rate 12 16 18 Blood Pressure 120/86 Pulse Oximetry 98 Oxygen Delivery Fraction of Inspired Oxygen 03/19/24 15:28 03/19/24 20:00 03/19/24 20:00 Temperature 36.3 C L 36.3 C L Pulse Rate 68 82 Respiratory Rate 18 18 Blood Pressure 104/73 101/51 L Pulse Oximetry 100 100 Oxygen Delivery Room Air Fraction of Inspired Oxygen 03/19/24 20:19 03/19/24 20:20 03/19/24 20:29 Temperature Pulse Rate 74 78 Respiratory Rate 18 18 Blood Pressure Pulse Oximetry 99 Oxygen Delivery Room Air Fraction of Inspired Oxygen 03/19/24 21:59 03/20/24 00:00 03/20/24 00:00 Temperature 36.3 C L 36.4 C 36.4 C Pulse Rate 76 83 83 Respiratory Rate 18 18 18 Blood Pressure 101/51 L 116/70 116/70 Pulse Oximetry 100 97 97 Oxygen Delivery Fraction of Inspired Oxygen 03/20/24 00:00 03/20/24 01:58 03/20/24 02:08 Temperature Pulse Rate 91 77 79 Respiratory Rate 18 18 Blood Pressure Pulse Oximetry Oxygen Delivery Fraction of Inspired Oxygen 03/20/24 04:00 03/20/24 04:00 03/20/24 06:00 Temperature 36.7 C 36.3 C L Pulse Rate 89 92 91 Respiratory Rate 18 18 Blood Pressure 143/91 H 145/96 H Pulse Oximetry 99 95 Oxygen Delivery Fraction of Inspired Oxygen 03/20/24 08:32 03/20/24 08:32 03/20/24 08:50 Temperature Pulse Rate 95 80 Respiratory Rate 18 Blood Pressure Pulse Oximetry Oxygen Delivery Room Air Fraction of Inspired Oxygen Exam Const: General: cooperative, healthy appearing and comfortable Orientation/consciousness: oriented to person, oriented to place and oriented to time HENMT: Head: normal to inspection Ears: hearing grossly normal bilaterally Other: Active dental caries throughout his mouth. Eyes: General: appearance normal, both eyes and all related structures Neck: Neck: normal visual inspection Other: No lymphadenopathy Chest: Chest palpation & inspection: normal inspection of the chest Other: right axilla region with the small 1 to 1.5 cm indurated firm area that does not feel like a discrete lymph node located near the insertion of his triceps muscle. almost an identical finding in the left axillary region. Resp: Effort & Inspection: normal respiratory effort and able to speak in complete sentences Auscultation: crackles, no rales, no rhonchi, no wheezes and lung sounds not diminished Other: left base Cardio: Jugular venous distension: no JVD GI: Inspection: normal to inspection GI Palp: No abdominal tenderness Back/Spine/Pelvis: Other: no inguinal adenopathy Skin: General skin exam: normal color Neuro: General: oriented to person, oriented to place and oriented to time Extrem: General: normal to inspection Psych: Appearance: grossly normal Results Laboratory Findings 03/20/24 04:52 03/20/24 04:52 ABG, PT/INR, D-dimer: PT/INR, D-dimer PT 15.4 Seconds (11.1-14.7) H 03/20/24 04:52 INR 1.2 03/20/24 04:52 Abnormal lab findings: Abnormal Labs 03/19/24 03/19/24 03/20/24 11:00 12:06 04:52 WBC 19.6 H RBC 3.49 L 3.29 L Hgb 11.6 L 10.8 L Hct 33.5 L 34.1 L MCV 103.6 H D MCHC 31.7 L Plt Count 137 L MPV 11.4 H 11.7 H Neut % (Auto) 82.6 H 74.6 H Lymph % (Auto) 8.2 L 14.1 L [place] # (Auto) 1.7 H 0.7 H Abs Immat Gran (auto) 0.08 H Absolute Neuts (auto) 16.2 H Absolute Nucleated RBC 0.070 H Nucleated RBC % 0.8 H PT 15.4 H APTT 44.9 H Sodium 134 L BUN 23 H 21 H Lactic Acid 0.6 L Calcium 8.3 L 7.5 L Diagnostic Findings Additional studies: ITS Impressions Chest X-Ray 03/19/24 10:33 IMPRESSION: 1. Left lower lobe pneumonia. 2. Right paratracheal masslike opacity which could represent lymphadenopathy, other mediastinal mass or vascular structure. Recommend contrast-enhanced chest CT for further evaluation. Chest/Abdomen CT 03/19/24 12:05
[2024-03-20] MEDS: AZITHROMYCIN 500 MG/NS 250 ML 500 MG/250 ML BAG 250 MG IVPB (10:33)
[2024-03-20 11:11] LABS: HIV 1/2 Ab P24 Ag Result Negative (Negative)
[2024-03-20 11:38] LABS: Alveolar/Arterial O2 Gradient 16.5 mmHg; Base Excess ABG -0.8 mEq/l (+/-2.0); Device ROOM AIR; Fractional Inspired Oxygen 21 %; HCO3 ABG 23.1 mEq/l (22.0-26.0); Modified Allen's Test Pass; Oxygen Content ABG 15.5 %vol (16.0-22.0); Oxygen Saturation ABG 97.2 % (95.0-100.0); Oxyhemoglobin 96.8 % THb (90.0-100.0); PCO2 ABG 35.5 mmHg (35.0-45.0); PO2 ABG 90.7 mmHg (80.0-100.0); PO2 FiO2 Ratio Arterial Blood 4.32 %; Site Drawn RIGHT RADIAL; Total Hemoglobin 11.3 g/dL (12.0-18.0); pH ABG 7.432 (7.350-7.450)
[2024-03-20 12:03] LABS: MRSA (PCR) NOT DETECTED (NOT DETECTE)
[2024-03-20] MEDS: VANCOMYCIN 2,000 MG/NS 500 ML BAG 250 MG IVPB (12:59)
[2024-03-20] MEDS: guaiFENesin 12 HR 600 MG TABCR 1200 MG PO (20:39)
[2024-03-21] VITALS (12 sets, daily range): BP systolic 128–155; BP diastolic 86–99; PULSE 67–98; RESP 16–18; TEMP 36.1–37.6; O2SAT 94–100
[2024-03-21] MEDS: VANCOMYCIN 1,500 MG/NS 500 ML 1,500 MG/500 ML BAG 250 MG IVPB (00:34)
[2024-03-21 06:25] LABS: Estimated CRCL calculation 127 ml/min; Estimated Glomerular Filt Rate > 60
--- NOTE | 2024-03-21 07:16 | PM.IMPN ---
Progress Note: A&P Assessment and Plan (1) Bilateral pneumonia: Code(s): J18.9 - Pneumonia, unspecified organism Status: Acute Assessment and Plan: - CXR: Left lower lobe pneumonia. Right paratracheal masslike opacity which could represent lymphadenopathy, other mediastinal mass or vascular structure. - Chest/abdomen CT: Mediastinal lymphadenopathy suspicious for malignancy either lymphoma or metastatic disease. No other lesions suspicious for primary or metastatic disease identified in the chest or abdomen. Pneumonia in the bilateral lower lobes. - started on CAP tx: azithromycin ceftriaxone started on 03/19, MRSA negative discontinued vancomycin - Viral PCR: negative for Flu/COVID/RSV - MRSA negative - blood cultures obtained on 03/19: pending - no supplemental O2 requirement - Monitor vital signs, I&Os, neuro status and patient is a fall risk - Follow WBC, serum electrolytes, temperature curves and cultures - Pulmonology consulted Urine for Legionella, urine for pneumococcal antigen, serum mycoplasma IgM and a respiratory pathogen panel HIV negative Repeat an chest x-ray on 03/21/2024: Probable mild bibasilar pulmonary edema/atelectasis, versus possibly pneumonia. Underlying COPD. (2) Lymphadenopathy, mediastinal: Code(s): R59.0 - Localized enlarged lymph nodes Status: Acute Assessment and Plan: Concerning for cancer (primary or metastatic), lymphoma 27 pack year smoking history - Possible axillary lymphadenopathy, however was unable to palpate this myself. Per pulmonology felt more indurated than anything. - CXR: Left lower lobe pneumonia. Right paratracheal masslike opacity which could represent lymphadenopathy, other mediastinal mass or vascular structure. - Chest/abdomen CT: Mediastinal lymphadenopathy suspicious for malignancy either lymphoma or metastatic disease. No other lesions suspicious for primary or metastatic disease identified in the chest or abdomen. Pneumonia in the bilateral lower lobes. - Pulmonology consulted, appreciate recommendations HIV negative US axillae, needle bx if appropriately enlarged LN CT chest/abdomen/pelvis looking for progression of pneumonia and any LN that may be present in the groin. Potential bronchoscopy with bx of subcarinal LN (3) COPD (chronic obstructive pulmonary disease): Code(s): J44.9 - Chronic obstructive pulmonary disease, unspecified Status: Acute Assessment and Plan: Does not appear in acute exacerbation. - CXR: Left lower lobe pneumonia. Right paratracheal masslike opacity which could represent lymphadenopathy, other mediastinal mass or vascular structure. - Chest/abdomen CT: Mediastinal lymphadenopathy suspicious for malignancy either lymphoma or metastatic disease. No other lesions suspicious for primary or metastatic disease identified in the chest or abdomen. Pneumonia in the bilateral lower lobes. - Pulmonology consulted does not need inhaled or systemic steroids at this time change his albuterol nebulizer to DuoNebs q.6 hours, change to guaifenesin 1200 mg p.o. b.i.d. abg unremarkable check alpha 1 anti trypsin Time Spent With Patient Time with patient: 25 - 35 minutes Subjective Date/time seen: 03/21/24 07:16 Interval history: 48 year old homeless male with no signifant past medical history presents to the hospital for shortness of breath. Patient is pleasant lying comfortably in bed. He continues to endorse body aches but notes that his shortness of breath has much improved and he is having a less of productive cough. He has no other complaints denies chest pain, shortness a breath, palpitations, nausea/ vomiting, and abdominal pain. Review of Systems Review of Systems: All systems reviewed & are unremarkable except as noted in HPI and below Exam Narrative: AF HR 67 RR 18 SpO2 96 BP 131/86 General: male in no acute respiratory distress who is nontoxic appearing, lying semi recumbent in bed. HEENT: Normocephalic. Atraumatic. Extraocular movement intact. Sclera clear and anicteric. No facial asymmetry. Chest: Lungs are diminished to auscultation bilaterally. No wheezes or crackles. CV: Heart was regular rate and rhythm. S1/S2. No murmurs, gallops, or rubs. Abd: Abdomen was soft. Nontender. Nondistended. Positive bowel sounds. No organomegaly or masses. Ext: No clubbing, cyanosis, or edema. 2+ DP pulses bilaterally. Unable to palpate axillary nodes. Neuro: Patient is alert and oriented x4. Speech is clear. Objective Data Vital Signs Vital Signs: Vital Signs - 24 hr 03/20/24 08:32 03/20/24 08:32 03/20/24 08:50 Temperature Pulse Rate 95 80 Respiratory Rate 18 Blood Pressure Pulse Oximetry Oxygen Delivery Room Air 03/20/24 12:00 03/20/24 12:00 03/20/24 16:00 Temperature 97.8 F Pulse Rate 71 73 73 Respiratory Rate 18 Blood Pressure 116/83 Pulse Oximetry 99 Oxygen Delivery 03/20/24 16:00 03/20/24 20:00 03/20/24 20:00 Temperature 97.9 F 99 F Pulse Rate 68 90 91 Respiratory Rate 18 20 Blood Pressure 134/93 H 140/90 Pulse Oximetry 100 97 Oxygen Delivery 03/20/24 20:45 03/21/24 00:00 03/21/24 00:00 Temperature 98.9 F Pulse Rate 92 93 Respiratory Rate 18 Blood Pressure 146/92 H Pulse Oximetry 94 Oxygen Delivery Room Air 03/21/24 03:51 03/21/24 04:00 Temperature 98.6 F Pulse Rate 94 98 Respiratory Rate 16 Blood Pressure 155/95 H Pulse Oximetry 98 Oxygen Delivery Intake/Output Intake/Output: Intake & Output 03/18/24 03/19/24 03/20/24 03/21/24 23:59 23:59 23:59 23:59 Intake Total 1780 2520 850 Balance 1780 2520 850 Meds/Results Medications: Active Medications Generic Name Dose Route Start Last Admin Trade Name Freq PRN Reason Stop Dose Admin Acetaminophen 650 mg 03/19/24 12:42 03/20/24 08:32 Acetaminophen 325 Mg Tablet PO 650 mg Q4H PRN Administration Mild Pain (1-3) or Fever Hydrocodone Bitart/Acetaminophen 1 tab 03/19/24 13:03 Hydrocodone/Acetaminophen (*Crx) 5-325 Mg Tablet PO Q4H PRN Pain Rated 4-6 Enoxaparin Sodium 40 mg 03/20/24 09:00 03/20/24 08:34 Enoxaparin 40 Mg/0.4 Ml Syringe SUB-Q 40 mg DAILY DAQUAN Administration Guaifenesin 1,200 mg 03/20/24 21:00 03/20/24 20:39 Guaifenesin 12 Hr 600 Mg Tabcr PO 1,200 mg Q12HR DAQUAN Administration Ceftriaxone Sodium 1 gm in 50 mls @ 100 mls/hr 03/19/24 10:50 03/20/24 11:03 Rocephin 1 Gm/Ns 50 Ml IVPB Infused Q24H DAQUAN Infusion Azithromycin 500 mg in 250 mls @ 250 mls/hr 03/19/24 10:50 03/20/24 11:33 Zithromax IVPB Infused Q24H DAQUAN Infusion Sodium Chloride 1,000 mls @ 100 mls/hr 03/19/24 13:05 03/20/24 02:05 Normal Saline Iv IV CONT 100 mls/hr .Q10H DAQUAN Administration Vancomycin HCl 1,500 mg in 500 mls @ 250 mls/hr 03/21/24 01:00 03/21/24 02:35 Vancomycin 1,500 Mg/Ns 500 Ml IVPB Infused Q12H DAQUAN Infusion Radiology Results: ITS Impressions Chest/Abdomen CT 03/19/24 12:05 IMPRESSION: 1. Mediastinal lymphadenopathy suspicious for malignancy either lymphoma or metastatic disease. No other lesions suspicious for primary or metastatic disease identified in the chest or abdomen. 2. Pneumonia in the bilateral lower lobes. Chest X-Ray 03/21/24 06:37 Impression: Probable mild bibasilar pulmonary edema/atelectasis, versus possibly pneumonia. Correlate clinically. Underlying COPD. Labs Labs: Laboratory Results - last 24 hr 03/20/24 03/20/24 03/20/24 04:50 10:47 11:28 Puncture Site Right radial ABG pH 7.432 ABG pCO2 35.5 ABG pO2 90.7 ABG PO2/FiO2 Ratio 4.32 ABG HCO3 23.1 ABG O2 Saturation 97.2 ABG O2 Content 15.5 L ABG Base Excess -0.8 A-a Gradient 16.5 Oxyhemoglobin 96.8 Total Hemoglobin 11.3 L O2 Delivery Device Room air O2 Liters/Min Not Reportable FiO2 21 Creatinine Estim Creat Clear Calc Estimated GFR Nasal MRSA (PCR) Not detected HIV 1&2 Ab/P24 Ag 4thGn Negative 03/21/24 05:57 Puncture Site ABG pH ABG pCO2 ABG pO2 ABG PO2/FiO2 Ratio ABG HCO3 ABG O2 Saturation ABG O2 Content ABG Base Excess A-a Gradient Oxyhemoglobin Total Hemoglobin O2 Delivery Device O2 Liters/Min FiO2 Creatinine 0.66 L Estim Creat Clear Calc 127 Estimated GFR > 60 Nasal MRSA (PCR) HIV 1&2 Ab/P24 Ag 4thGn Quality VTE Prophylaxis VTE prophylaxis: mechanical ordered
[2024-03-21 07:35] LABS: Basophils Absolute Auto 0.1 K/mm3 (0.0-0.1); Basophils Percent Auto 0.7 % (0.2-1.2); Eosinophils Absolute Auto 0.3 K/mm3 (0-0.3); Eosinophils Percent Auto 3.2 % (0-4.4); Hematocrit 36.3 % (42.0-52.0); Hemoglobin 12.1 g/dL (14.0-18.0); Immature Granulocyte Absolute 0.06 K/mm3 (0.00-0.031); Immature Granulocyte Percent A 0.7 % (0-0.5); Lymphocytes Absolute Auto 1.33 K/mm3 (0.9-3.2); Lymphocytes Percent Auto 14.5 % (18.3-44.2); Mean Corpuscular HGB Conc 33.3 g/dl (32-36); Mean Corpuscular Hemoglobin 32.3 pg (26-34); Mean Corpuscular Volume 96.8 fl (80-100); Mean Platelet Volume 11.8 fl (7.4-10.4); Monocytes Absolute Auto 0.9 K/mm3 (0.1-0.6); Monocytes Percent Auto 9.4 % (2.6-8.5); Neutrophils Absolute Auto 6.6 K/mm3 (1.3-6.7); Neutrophils Percent Auto 71.5 % (45.5-73.1); Platelet Count Result 195 k/mm3 (150-375); Red Blood Count 3.75 M/mm3 (4.6-6.20); Red Cell Distribution Width 12.9 % (11.5-14.5); White Blood Count 9.2 K/mm3 (4.5-10.0)
[2024-03-21 07:52] LABS: Alanine Aminotransferase 46 U/L (6-50); Albumin Level 3.2 g/dL (3.5-5.1); Alkaline Phosphatase 117 U/L (38-126); Anion Gap 9 mmol/L (4-12); Aspartate Amino Transferase 37 U/L (17-59); Bilirubin,Total 0.5 mg/dL (0.2-1.3); Blood Urea Nitrogen 10 mg/dL (9-20); Calcium 8.4 mg/dL (8.4-10.2); Carbon Dioxide 23 mmol/L (22-30); Chloride 104 mmol/L (98-107); Estimated CRCL calculation 129 ml/min; Estimated Glomerular Filt Rate > 60; Glucose 93 mg/dL (65-110); Potassium 4.3 mmol/L (3.4-5.0); Sodium 136 mmol/L (137-145)
[2024-03-21] MEDS: guaiFENesin 12 HR 600 MG TABCR 1200 MG PO ×2 (09:24→20:30)
[2024-03-21] MEDS: ENOXAPARIN 40 MG/0.4 ML SYRINGE SUB-Q (09:25)
[2024-03-21] MEDS: ACETAMINOPHEN 325 MG TABLET 650 MG PO ×2 (09:27→20:32)
[2024-03-21] MEDS: AZITHROMYCIN 500 MG/NS 250 ML 500 MG/250 ML BAG 250 MG IVPB (10:24)
--- NOTE | 2024-03-21 11:46 | P.PNPL_ITS ---
Progress Note: A&P Assessment and Plan (1) Bilateral pneumonia: Code(s): J18.9 - Pneumonia, unspecified organism Status: Acute Assessment and Plan: This patient is a homeless man with a history of incarceration last on February of 2023 who presents with 1 month history of nasal and congestion, intermittent rhinorrhea, 4 days feeling hot and cold with phlegm and production that was green, 3 days cough and shortness of breath. he had a leukocytosis of 19.6, chest x-ray with left lower lobe infiltrate and a CT scan with evidence of a left lower lobe pneumonia and a right perihilar pneumonia. COVID, influenza, RSV RT PCR studies negative. Patient was started on ceftriaxone and azithromycin. MRSA swab is positive. Will continue vancomycin day 1, ceftriaxone and azithromycin day 3. Urine antigens sent for urine for Legionella and pneumococcal antigens, serum mycoplasma IgM and a respiratory pathogen panel, HIV screen is pending. (2) Mediastinal mass: Code(s): J98.59 - Other diseases of mediastinum, not elsewhere classified Status: Acute Assessment and Plan: Patient with 27 pack year tobacco use and currently with pneumonia with right paratracheal and subcarinal mediastinal mass without any concurrent pulmonary nodules or masses. Patient complains of a right axillary cyst -tender area for 1 week and a left axillary cyst area for 1 day. To me this feels like an indurated area at the insertion of his tricuspid muscle rather than discrete lymphadenopathy. Etiology includes: cancer (primary or metastatic), lymphoma, doubt reactive lymphadenopathy from pneumonia. Plan: HIV is pending. 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 Regarding future living arrangements and follow-up: Dr Rivas spoke to care coordination and patient does have a Medicaid plan and does have access to subsidized housing through Medicaid. patient told Dr Rivas that he recently got approved for food stamps and gets about 250 dollars a month. [facility] will give him resources for food and jail but it will be the patient's responsibility to look into these facilities and to try to find temporary housing. He will be responsible to follow up with his physicians in the future. (3) COPD (chronic obstructive pulmonary disease): Code(s): J44.9 - Chronic obstructive pulmonary disease, unspecified Status: Acute Assessment and Plan: He has a 27 pack year history of tobacco use. CT scan of the chest on 03/19/2024 shows mild apical predominant paraseptal and centrilobular emphysema. I have no PFTs. white blood cell count on admission with pneumonia is 19.6 with eosinophils 0.1%=20/uL. 03/20/24 ABG on room air = pH 7.42, pCO2 35.5, pO2 90.7, HCO3 23.1, saturation 97.2%, hemoglobin 11.3 g/dL. alpha-1 phenotype is pending. Plan: currently patient has no active wheezing, likely not a COPD exacerbation and he does not need inhaled or systemic steroids at this time. He had his albuterol nebulizer changed to DuoNebs q.6 hours, changed guaifenesin 1200 mg p.o. b.i.d.. Remains on room air with saturations 99%. (4) Tobacco dependence: Code(s): F17.200 - Nicotine dependence, unspecified, uncomplicated Status: Acute Assessment and Plan: He has 27 pack year history. Plan plan:1) ultrasound axillae, needle biopsy either axillae if there is an appropriately enlarged lymph node. 2) CT with IV constrast chest, abdomen and pelvis looking for progression of pneumonia and any LN that may be present in the groin. His differential includes lymphoma. If a LN is easier to biopsy than performing a bronchoscopy, this is the preferred method. 3) Potential bronchoscopy with needle biopsy of a subcarinal lymph node which appears enlarged. He has many areas that would be amenable to EBUS - endobronchial ultrasound guided biopsy, however this is not available at [facility]. He would require transfer to a facility with higher level services. We may have to do this if the LN biopsy is negative. Discussed with patient. 4. Current antibiotics include Vanco, ceftriaxone and azithromycin. I spoke with ID commercial pest control technician; will stop Vanco with negative MRSA swab, change azithromycin to oral. Continue the ceftriaxone IV. d/w Dr Rivas, Dr Damico interventional radiologist. Subjective Date/time seen: 03/21/24 11:46 Interval history: 03/21/24 hospital follow up: Wang Rodney is 48 years old, admitted with pneumonia; 03/20/24; 03/20/2022: This is a new pulmonary consult for pneumonia and mediastinal mass. 48-year-old tobacco user who is homeless with no significant past medical history currently on no medications. Patient is homeless and has a history of being incarcerated from age [age] and then being in and out of long-term from 2009 to February of 2023. in January of 2023 approximately 1 month prior to being discharged he was tested for HIV which was negative. In his usual state of health the patient has no respiratory issues and no respiratory limitations in his activities of daily living. Patient smoked tobacco from 21 to current at 1 pack per day he for total of 27 pack years. Patient smokes marijuana 2 to 3 times a week from age 27 to current. Patient snorted methamphetamine for 2 months from October 2020 to 11 after his mom . Patient denied snorting cocaine. Patient denies ever using IV drugs. Patient denies heroin use. Patient has no family other than a brother who is also homeless. 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 Last time he did this work was 2020. Patient denies stand blasting, welding, asbestos work, professional painting, steel liquor grinding mill operator, coal mining, brick or concrete work. One month ago he developed sinus congestion and rhinorrhea. Four days ago he developed hot and cold spells and increased phlegm production which was green. Three days ago he developed cough and 3 days ago he developed shortness of breath. Of note 1 week ago the patient noticed a area of swelling almost like a cyst in his right armpit which persists. One day ago the patient noticed a cyst or swelling in his left armpit that persists. He denies any other skin rashes, new arthritis, change in bowel or urine habits. Symptoms progressed and he presented to [facility] on 03/19/2024 and they did not meet his care expectations and he left and presented to [facility]. In the emergency room his blood pressure was 123/89, heart rate 129, respiration rate 16, temperature 37.2?, rest room air saturation 98%. White blood cell count was 19.6 was 0.1% eosinophils, creatinine 0.89, lactic acid 0.6, COVID, influenza and RSV RT PCR studies negative. Chest x-ray with left lower lobe pneumonia and right paratracheal mass. CT with contrast showed mild apical predominant paraseptal and centrilobular emphysema. Left lower lobe infiltrates, right paratracheal infiltrate and a right paratracheal mass that extended to the subcarinal region. Patient was placed on ceftriaxone and admitted to the hospital. 03/20/2024. The patient tells me he is the same today. His cough and green phlegm are stable, he still is having sweats, his congestion is the same and his body aches are the same. He is afebrile. His room air saturations are 99%. His white blood cell count is 8.7, his creatinine is 0.75. 03/21/2024; not short of breath. Less cough and less sputum. He has been having night sweats for a while at home. no fever. Pulse is 105, saturation 95% on room air. He is feeling much better compared to when he was admitted to the hospital. DATA: 03/19/2024: EXAMINATION: CT chest abdomen w con INDICATION: Assess for malignancy with abnormal chest radiograph COMPARISON: None FINDINGS: Chest: Mild apical predominant paraseptal emphysema. Patchy groundglass opacities and consolidation in the basilar segments of the left lower lobe. There is additional dense consolidation and small amount surrounding patchy groundglass opacity in the anterobasilar right lower lobe. No other suspicious pulmonary nodules, pulmonary edema or pleural effusion. Heart size is normal. Atherosclerotic coronary artery calcifications. Small pericardial effusion. Thoracic aorta is normal in caliber with no dissection. Additional enhancing mediastinal mass including a 4.9 x 2.8 cm precarinal mass, 4.5 x 2.8 cm right paratracheal mass and 3.4 x 1.8 cm subcarinal mass which are suspicious for either lymphoma or metastatic disease. No other evident pathologically enlarged lymphadenopathy in the chest or visualized lower neck. Mild thoracic spondylosis. Abdomen: Liver, gallbladder, spleen, pancreas, bilateral adrenal glands and kidneys are normal. Visualized portions of bowels are unremarkable with no obstruction or abnormal bone or thickening. No pathologically enlarged abdominal or upper pelvic lymphadenopathy. Minimal lumbar spondylosis. IMPRESSION: 1. Mediastinal lymphadenopathy suspicious for malignancy either lymphoma or metastatic disease. No other lesions suspicious for primary or metastatic disease identified in the chest or abdomen. 2. Pneumonia in the bilateral lower lobes. 03/19/2024: EXAMINATION: XR chest 2V INDICATION: Cough TECHNIQUE: PA and lateral views of the chest were obtained. COMPARISON: None FINDINGS: Left lower lobar airspace opacities suspicious for pneumonia. Remainder the lungs are clear with no pulmonary edema, pleural effusion or pneumothorax. Heart size is normal. There is a left-sided aortic arch. There is a contralateral masslike right paratracheal opacity which could represent a mediastinal mass, lymphadenopathy or vascular structure. IMPRESSION: 1. Left lower lobe pneumonia. 2. Right paratracheal masslike opacity which could represent lymphadenopathy, other mediastinal mass or vascular structure. Recommend contrast-enhanced chest CT for further evaluation. Review of Systems Review of Systems: All systems reviewed & are unremarkable except as noted in HPI and below Exam Narrative: GEN: Alert, oriented, not in distress. Room air. HEENT: pupils are equal, EOMI, symmetrical face; oral membranes moist, Mallampati II airway NECK: Trachea is midline Axillae: He has a tiny lymph node palpable in the left axillae, and a near- imaginary LN palpable in the right axilla. These have been tender at times, blayne the left one. CHEST: Equal air entry, symmetric excursion, clear breath sounds CV: Regular S1S2 no m/g/r ABD : (+) bowel sounds Extremities : no clubbing, cyanosis, or edema PSYCH: normal thought and speech Objective Data Vital Signs Vital Signs: Vital Signs - 24 hr 03/20/24 12:00 03/20/24 12:00 03/20/24 16:00 Temperature 36.6 C Pulse Rate 71 73 73 Respiratory Rate 18 Blood Pressure 116/83 Pulse Oximetry 99 Oxygen Delivery 03/20/24 16:00 03/20/24 20:00 03/20/24 20:00 Temperature 36.6 C 37.2 C Pulse Rate 68 90 91 Respiratory Rate 18 20 Blood Pressure 134/93 H 140/90 Pulse Oximetry 100 97 Oxygen Delivery 03/20/24 20:45 03/21/24 00:00 03/21/24 00:00 Temperature 37.2 C Pulse Rate 92 93 Respiratory Rate 18 Blood Pressure 146/92 H Pulse Oximetry 94 Oxygen Delivery Room Air 03/21/24 03:51 03/21/24 04:00 03/21/24 08:30 Temperature 37.0 C 37.0 C Pulse Rate 94 98 76 Respiratory Rate 16 18 Blood Pressure 155/95 H 128/94 H Pulse Oximetry 98 95 Oxygen Delivery 03/21/24 09:25 03/21/24 09:25 Temperature Pulse Rate 97 Respiratory Rate Blood Pressure Pulse Oximetry Oxygen Delivery Room Air Intake/Output Intake/Output: Intake & Output 03/18/24 03/19/24 03/20/24 03/21/24 23:59 23:59 23:59 23:59 Intake Total 1780 2520 1090 Balance 1780 2520 1090 Meds/Results Medications: Active Medications Generic Name Dose Route Start Last Admin Trade Name Freq PRN Reason Stop Dose Admin Acetaminophen 650 mg 03/19/24 12:42 03/21/24 09:27 Acetaminophen 325 Mg Tablet PO 650 mg Q4H PRN Administration Mild Pain (1-3) or Fever Hydrocodone Bitart/Acetaminophen 1 tab 03/19/24 13:03 Hydrocodone/Acetaminophen (*Crx) 5-325 Mg Tablet PO Q4H PRN Pain Rated 4-6 Enoxaparin Sodium 40 mg 03/20/24 09:00 03/21/24 09:25 Enoxaparin 40 Mg/0.4 Ml Syringe SUB-Q 40 mg DAILY DAQUAN Administration Guaifenesin 1,200 mg 03/20/24 21:00 03/21/24 09:24 Guaifenesin 12 Hr 600 Mg Tabcr PO 1,200 mg Q12HR DAQUAN Administration Ceftriaxone Sodium 1 gm in 50 mls @ 100 mls/hr 03/19/24 10:50 03/21/24 10:25 Rocephin 1 Gm/Ns 50 Ml IVPB 100 mls/hr Q24H DAQUAN Administration Azithromycin 500 mg in 250 mls @ 250 mls/hr 03/19/24 10:50 03/21/24 10:24 Zithromax IVPB 250 mls/hr Q24H DAQUAN Administration Sodium Chloride 1,000 mls @ 100 mls/hr 03/19/24 13:05 03/20/24 02:05 Normal Saline Iv IV CONT 100 mls/hr .Q10H DAQUAN Administration Vancomycin HCl 1,500 mg in 500 mls @ 250 mls/hr 03/21/24 01:00 03/21/24 02:35 Vancomycin 1,500 Mg/Ns 500 Ml IVPB Infused Q12H DAQUAN Infusion Radiology Results: ITS Impressions Chest/Abdomen CT 03/19/24 12:05 IMPRESSION: 1. Mediastinal lymphadenopathy suspicious for malignancy either lymphoma or metastatic disease. No other lesions suspicious for primary or metastatic disease identified in the chest or abdomen. 2. Pneumonia in the bilateral lower lobes. Chest X-Ray 03/21/24 06:37 Impression: Probable mild bibasilar pulmonary edema/atelectasis, versus possibly pneumonia. Correlate clinically. Underlying COPD. Labs Labs: Laboratory Results - last 24 hr 03/20/24 03/21/24 03/21/24 10:47 05:55 05:57 WBC 9.2 RBC 3.75 L Hgb 12.1 L Hct 36.3 L MCV 96.8 D MCH 32.3 MCHC 33.3 RDW 12.9 Plt Count 195 MPV 11.8 H Immature Gran % (Auto) 0.7 H Neut % (Auto) 71.5 Lymph % (Auto) 14.5 L [place] % (Auto) 9.4 H Eos % (Auto) 3.2 Baso % (Auto) 0.7 Lymph # (Auto) 1.33 [place] # (Auto) 0.9 H Eos # (Auto) 0.3 Baso # (Auto) 0.1 Abs Immat Gran (auto) 0.06 H Absolute Neuts (auto) 6.6 Absolute Nucleated RBC 0.000 Nucleated RBC % 0.0 Sodium 136 L Potassium 4.3 Chloride 104 Carbon Dioxide 23 Anion Gap 9 BUN 10 D Creatinine 0.65 L 0.66 L Estim Creat Clear Calc 129 127 Estimated GFR > 60 > 60 Glucose 93 Calcium 8.4 Total Bilirubin 0.5 AST 37 ALT 46 Alkaline Phosphatase 117 Total Protein 7.0 Albumin 3.2 L Nasal MRSA (PCR) Not detected
[2024-03-21 12:00] LABS: MRSA (PCR) NOT DETECTED (NOT DETECTE)
[2024-03-22] VITALS (7 sets, daily range): BP systolic 119–128; BP diastolic 79–89; PULSE 71–98; RESP 17–20; TEMP 36.5–36.8; O2SAT 97–98
[2024-03-22 05:35] LABS: Basophils Absolute Auto 0.1 K/mm3 (0.0-0.1); Eosinophils Absolute Auto 0.4 K/mm3 (0-0.3); Eosinophils Percent Auto 5.1 % (0-4.4); Hematocrit 38.3 % (42.0-52.0); Hemoglobin 12.6 g/dL (14.0-18.0); Immature Granulocyte Absolute 0.07 K/mm3 (0.00-0.031); Lymphocytes Absolute Auto 1.57 K/mm3 (0.9-3.2); Lymphocytes Percent Auto 22.8 % (18.3-44.2); Mean Corpuscular HGB Conc 32.9 g/dl (32-36); Mean Corpuscular Hemoglobin 31.8 pg (26-34); Mean Corpuscular Volume 96.7 fl (80-100); Mean Platelet Volume 11.3 fl (7.4-10.4); Monocytes Percent Auto 13.9 % (2.6-8.5); Neutrophils Absolute Auto 3.9 K/mm3 (1.3-6.7); Neutrophils Percent Auto 56.2 % (45.5-73.1); Platelet Count Result 226 k/mm3 (150-375); Red Blood Count 3.96 M/mm3 (4.6-6.20); Red Cell Distribution Width 12.7 % (11.5-14.5); White Blood Count 6.9 K/mm3 (4.5-10.0)
[2024-03-22 05:52] LABS: Alanine Aminotransferase 33 U/L (6-50); Albumin Level 3.4 g/dL (3.5-5.1); Alkaline Phosphatase 99 U/L (38-126); Anion Gap 8 mmol/L (4-12); Aspartate Amino Transferase 23 U/L (17-59); Bilirubin,Total 0.4 mg/dL (0.2-1.3); Blood Urea Nitrogen 16 mg/dL (9-20); Calcium 8.3 mg/dL (8.4-10.2); Carbon Dioxide 27 mmol/L (22-30); Chloride 101 mmol/L (98-107); Estimated CRCL calculation 107 ml/min; Estimated Glomerular Filt Rate > 60; Glucose 95 mg/dL (65-110); Potassium 4.6 mmol/L (3.4-5.0); Sodium 136 mmol/L (137-145)
[2024-03-22 07:04] LABS: Alpha-1-Antitrypsin, QN 273 mg/dL (83-199)
--- NOTE | 2024-03-22 08:28 | P.PNIM_ITS ---
Progress Note: A&P Assessment and Plan (1) Bilateral pneumonia: Code(s): J18.9 - Pneumonia, unspecified organism Status: Acute Assessment and Plan: - CXR: Left lower lobe pneumonia. Right paratracheal masslike opacity which could represent lymphadenopathy, other mediastinal mass or vascular structure. - Chest/abdomen CT: Mediastinal lymphadenopathy suspicious for malignancy either lymphoma or metastatic disease. No other lesions suspicious for primary or metastatic disease identified in the chest or abdomen. Pneumonia in the bilateral lower lobes. - started on CAP tx: azithromycin ceftriaxone started on 03/19, MRSA negative discontinued vancomycin - Viral PCR: negative for Flu/COVID/RSV - MRSA negative - blood cultures obtained on 03/19: NGTD - no supplemental O2 requirement - Monitor vital signs, I&Os, neuro status and patient is a fall risk - Follow WBC, serum electrolytes, temperature curves and cultures - Pulmonology consulted Urine for Legionella, urine for pneumococcal antigen, serum mycoplasma IgM and a respiratory pathogen panel HIV negative Repeat an chest x-ray on 03/21/2024: Probable mild bibasilar pulmonary edema/atelectasis, versus possibly pneumonia. Underlying COPD. (2) Lymphadenopathy, mediastinal: Code(s): R59.0 - Localized enlarged lymph nodes Status: Acute Assessment and Plan: Concerning for cancer (primary or metastatic), lymphoma 27 pack year smoking history - Possible axillary lymphadenopathy, however was unable to palpate this myself. Per pulmonology felt more indurated than anything. - CXR: Left lower lobe pneumonia. Right paratracheal masslike opacity which could represent lymphadenopathy, other mediastinal mass or vascular structure. - Chest/abdomen CT: Mediastinal lymphadenopathy suspicious for malignancy either lymphoma or metastatic disease. No other lesions suspicious for primary or metastatic disease identified in the chest or abdomen. Pneumonia in the bilateral lower lobes. - Chest/abdomen/pelvis CT: 1. Stable bilateral lower lobe pneumonia. 2. Worsened small pleural effusions. 3. Stable mediastinal lymphadenopathy suspicious for metastatic disease or lymphoma. 4. Mild emphysema. - US axillae: Nonpathologically enlarged lymph nodes within the bilateral ax illa. The LN within the left axilla is amenable to US biopsy - US bx of left axilla ordered - Pulmonology consulted, appreciate recommendations HIV negative US axillae, needle bx if appropriately enlarged LN CT chest/abdomen/pelvis looking for progression of pneumonia and any LN that may be present in the groin. Potential bronchoscopy with bx of subcarinal LN (3) COPD (chronic obstructive pulmonary disease): Code(s): J44.9 - Chronic obstructive pulmonary disease, unspecified Status: Acute Assessment and Plan: Does not appear in acute exacerbation. - CXR: Left lower lobe pneumonia. Right paratracheal masslike opacity which could represent lymphadenopathy, other mediastinal mass or vascular structure. - Chest/abdomen CT: Mediastinal lymphadenopathy suspicious for malignancy either lymphoma or metastatic disease. No other lesions suspicious for primary or metastatic disease identified in the chest or abdomen. Pneumonia in the bilateral lower lobes. - Pulmonology consulted does not need inhaled or systemic steroids at this time change his albuterol nebulizer to DuoNebs q.6 hours, change to guaifenesin 1200 mg p.o. b.i.d. abg unremarkable check alpha 1 anti trypsin Time Spent With Patient Time with patient: 25 - 35 minutes Subjective Date/time seen: 03/22/24 08:28 Interval history: 48 year old homeless male with no signifant past medical history presents to the hospital for shortness of breath. Patient is pleasant lying comfortably in bed. He has no complaints at this time denies chest pain, shortness a breath, palpitations, nausea/ vomiting, no abdominal pain. Patient is to undergo a biopsy this afternoon to further evalua te the mediastinal mass. Review of Systems Review of Systems: All systems reviewed & are unremarkable except as noted in HPI and below Exam Narrative: AF HR 78 RR 17 SpO2 98 BP 128/82 General: male in no acute respiratory distress who is nontoxic appearing, lying semi recumbent in bed. HEENT: Normocephalic. Atraumatic. Extraocular movement intact. Sclera clear and anicteric. No facial asymmetry. Chest: Lungs are diminished to auscultation bilaterally. No wheezes or crackles. CV: Heart was regular rate and rhythm. Abd: Abdomen was soft. Nontender. Nondistended. Positive bowel sounds. No organomegaly or masses. Ext: No clubbing, cyanosis, or edema. 2+ DP pulses bilaterally. Unable to palpate axillary nodes. Neuro: Patient is alert. Speech is clear. Objective Data Vital Signs Vital Signs: Vital Signs - 24 hr 03/21/24 08:30 03/21/24 09:25 03/21/24 09:25 Temperature 98.6 F Pulse Rate 76 97 Respiratory Rate 18 Blood Pressure 128/94 H Pulse Oximetry 95 Oxygen Delivery Room Air 03/21/24 12:00 03/21/24 12:00 03/21/24 16:00 Temperature 97.0 F L Pulse Rate 67 78 78 Respiratory Rate 18 Blood Pressure 131/86 Pulse Oximetry 96 Oxygen Delivery 03/21/24 17:28 03/21/24 20:00 03/21/24 20:00 Temperature 97.9 F 99.6 F Pulse Rate 75 85 Respiratory Rate 18 16 Blood Pressure 134/99 H 139/95 H Pulse Oximetry 97 100 Oxygen Delivery Room Air 03/21/24 20:00 03/21/24 20:32 03/21/24 21:00 Temperature 99.6 F 97.9 F Pulse Rate 88 Respiratory Rate Blood Pressure Pulse Oximetry Oxygen Delivery 03/21/24 21:32 03/22/24 00:00 03/22/24 00:00 Temperature 97.9 F 97.7 F Pulse Rate 71 71 Respiratory Rate 18 Blood Pressure 127/86 Pulse Oximetry 97 Oxygen Delivery 03/22/24 04:00 03/22/24 04:00 Temperature 98 F Pulse Rate 85 82 Respiratory Rate 18 Blood Pressure 127/89 Pulse Oximetry 97 Oxygen Delivery Intake/Output Intake/Output: Intake & Output 03/19/24 03/20/24 03/21/24 03/22/24 23:59 23:59 23:59 23:59 Intake Total 1780 2520 2420 300 Balance 1780 2520 2420 300 Meds/Results Medications: Active Medications Generic Name Dose Route Start Last Admin Trade Name Freq PRN Reason Stop Dose Admin Acetaminophen 650 mg 03/19/24 12:42 03/21/24 20:32 Acetaminophen 325 Mg Tablet PO 650 mg Q4H PRN Administration Mild Pain (1-3) or Fever Hydrocodone Bitart/Acetaminophen 1 tab 03/19/24 13:03 Hydrocodone/Acetaminophen (*Crx) 5-325 Mg Tablet PO Q4H PRN Pain Rated 4-6 Azithromycin 500 mg 03/22/24 09:00 Azithromycin 250 Mg Tablet PO DAILY DAQUAN Enoxaparin Sodium 40 mg 03/20/24 09:00 03/21/24 09:25 Enoxaparin 40 Mg/0.4 Ml Syringe SUB-Q 40 mg DAILY DAQAUN Administration Guaifenesin 1,200 mg 03/20/24 21:00 03/21/24 20:30 Guaifenesin 12 Hr 600 Mg Tabcr PO 1,200 mg Q12HR DAQUAN Administration Ceftriaxone Sodium 1 gm in 50 mls @ 100 mls/hr 03/19/24 10:50 03/21/24 10:55 Rocephin 1 Gm/Ns 50 Ml IVPB Infused Q24H DAQUAN Infusion Sodium Chloride 1,000 mls @ 100 mls/hr 03/19/24 13:05 03/20/24 02:05 Normal Saline Iv IV CONT 100 mls/hr .Q10H DAQUAN Administration Radiology Results: ITS Impressions Chest/Abdomen CT 03/19/24 12:05 IMPRESSION: 1. Mediastinal lymphadenopathy suspicious for malignancy either lymphoma or metastatic disease. No other lesions suspicious for primary or metastatic disease identified in the chest or abdomen. 2. Pneumonia in the bilateral lower lobes. Chest X-Ray 03/21/24 06:37 Impression: Probable mild bibasilar pulmonary edema/atelectasis, versus possibly pneumonia. Correlate clinically. Underlying COPD. Axilla US 03/21/24 14:19 IMPRESSION: Nonpathologically enlarged lymph nodes within the bilateral axilla, as detailed above. The lymph node within the left axilla is amenable to ultrasound-guided biopsy, should that become necessary. Chest/Abdomen/Pelvis CT 03/21/24 23:40 IMPRESSION: 1. Stable bilateral lower lobe pneumonia. 2. Worsened small pleural effusions. 3. Stable mediastinal lymphadenopathy suspicious for metastatic disease or lymphoma. 4. Mild emphysema. Labs Labs: Laboratory Results - last 24 hr 03/20/24 03/21/24 03/22/24 10:47 05:57 04:58 WBC 6.9 RBC 3.96 L Hgb 12.6 L Hct 38.3 L MCV 96.7 MCH 31.8 MCHC 32.9 RDW 12.7 Plt Count 226 MPV 11.3 H Immature Gran % (Auto) 1.0 H Neut % (Auto) 56.2 Lymph % (Auto) 22.8 [place] % (Auto) 13.9 H Eos % (Auto) 5.1 H Baso % (Auto) 1.0 Lymph # (Auto) 1.57 [place] # (Auto) 1.0 H Eos # (Auto) 0.4 H Baso # (Auto) 0.1 Abs Immat Gran (auto) 0.07 H Absolute Neuts (auto) 3.9 Absolute Nucleated RBC 0.000 Nucleated RBC % 0.0 Sodium 136 L Potassium 4.6 Chloride 101 Carbon Dioxide 27 Anion Gap 8 BUN 16 Creatinine 0.80 Estim Creat Clear Calc 107 Estimated GFR > 60 Glucose 95 Calcium 8.3 L Total Bilirubin 0.4 AST 23 ALT 33 Alkaline Phosphatase 99 Total Protein 7.0 Albumin 3.4 L [id number] 273 H Nasal MRSA (PCR) Not detected Quality VTE Prophylaxis VTE prophylaxis: mechanical ordered
[2024-03-22] MEDS: AZITHROMYCIN 250 MG TABLET 500 MG PO (09:07)
[2024-03-22] MEDS: guaiFENesin 12 HR 600 MG TABCR 1200 MG PO ×2 (09:07→20:06)
--- NOTE | 2024-03-22 17:13 | P.PNPL_ITS ---
Progress Note: A&P Assessment and Plan (1) Bilateral pneumonia: Code(s): J18.9 - Pneumonia, unspecified organism Status: Acute Assessment and Plan: This patient is a homeless man with a history of incarceration last on February of 2023 who presents with 1 month history of nasal and congestion, intermittent rhinorrhea, 4 days feeling hot and cold with phlegm and production that was green, 3 days cough and shortness of breath. he had a leukocytosis of 19.6, chest x-ray with left lower lobe infiltrate and a CT scan with evidence of a left lower lobe pneumonia and a right perihilar pneumonia. COVID, influenza, RSV RT PCR studies negative. Patient was started on ceftriaxone and azithromycin. MRSA swab is positive. Will continue vancomycin day 1, ceftriaxone and azithromycin day 3. Urine antigens sent for urine for Legionella and pneumococcal antigens, serum mycoplasma IgM and a respiratory pathogen panel, HIV screen is pending. (2) Mediastinal mass: Code(s): J98.59 - Other diseases of mediastinum, not elsewhere classified Status: Acute Assessment and Plan: Patient with 27 pack year tobacco use and currently with pneumonia with right paratracheal and subcarinal mediastinal mass without any concurrent pulmonary nodules or masses. Patient complains of a right axillary cyst -tender area for 1 week and a left axillary cyst area for 1 day. To me this feels like an indurated area at the insertion of his tricuspid muscle rather than discrete lymphadenopathy. Etiology includes: cancer (primary or metastatic), lymphoma, doubt reactive lymphadenopathy from pneumonia. Plan: HIV is pending. 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 Regarding future living arrangements and follow-up: Dr Rivas spoke to care coordination and patient does have a Medicaid plan and does have access to subsidized housing through Medicaid. patient told Dr Rivas that he recently got approved for food stamps and gets about 250 dollars a month. [facility] will give him resources for food and fpc but it will be the patient's responsibility to look into these facilities and to try to find temporary housing. He will be responsible to follow up with his physicians in the future. (3) COPD (chronic obstructive pulmonary disease): Code(s): J44.9 - Chronic obstructive pulmonary disease, unspecified Status: Acute Assessment and Plan: He has a 27 pack year history of tobacco use. CT scan of the chest on 03/19/2024 shows mild apical predominant paraseptal and centrilobular emphysema. I have no PFTs. white blood cell count on admission with pneumonia is 19.6 with eosinophils 0.1%=20/uL. 03/20/24 ABG on room air = pH 7.42, pCO2 35.5, pO2 90.7, HCO3 23.1, saturation 97.2%, hemoglobin 11.3 g/dL. alpha-1 phenotype is pending. Plan: currently patient has no active wheezing, likely not a COPD exacerbation and he does not need inhaled or systemic steroids at this time. He had his albuterol nebulizer changed to DuoNebs q.6 hours, changed guaifenesin 1200 mg p.o. b.i.d.. Remains on room air with saturations 99%. (4) Tobacco dependence: Code(s): F17.200 - Nicotine dependence, unspecified, uncomplicated Status: Acute Assessment and Plan: He has 27 pack year history. Plan plan:1) Await results of Left inguinal lymph node biopsy from today Mar 22. 2) continue IV ceftriaxone and po azithromycin. Subjective Date/time seen: 03/22/24 17:13 Interval history: 1/26/25; 03/20/2022: This is a new pulmonary consult for pneumonia and mediastinal mass. 48-year-old tobacco user who is homeless with no significant past medical history currently on no medications. Patient is homeless and has a history of being incarcerated from age [age] and then being in and out of senior care from 2009 to February of 2023. in January of 2023 approximately 1 month prior to being discharged he was tested for HIV which was negative. In his usual state of health the patient has no respiratory issues and no respiratory limitations in his activities of daily living. Patient smoked tobacco from 21 to current at 1 pack per day he for total of 27 pack years. Patient smokes marijuana 2 to 3 times a week from age 27 to current. Patient snorted methamphetamine for 2 months from October 2020 to after his mom . Patient denied snorting cocaine. Patient denies ever using IV drugs. Patient denies heroin use. Patient has no family other than a brother who is also homeless. Patient worked in the [employer] profession for his working career. 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 Last time he did this work was 2020. Patient denies stand blasting, welding, asbestos work, professional painting, steel paper mill superintendent, coal mining, brick or concrete work. One month ago he developed sinus congestion and rhinorrhea. Four days ago he developed hot and cold spells and increased phlegm production which was green. Three days ago he developed cough and 3 days ago he developed shortness of breath. Of note 1 week ago the patient noticed a area of swelling almost like a cyst in his right armpit which persists. One day ago the patient noticed a cyst or swelling in his left armpit that persists. He denies any other skin rashes, new arthritis, change in bowel or urine habits. Symptoms progressed and he presented to [facility] on 03[facility]19[facility]2024 and they did not meet his care expectations and he left and presented to [facility]. In the emergency room his blood pressure was 123/89, heart rate 129, respiration rate 16, temperature 37.2?, rest room air saturation 98%. White blood cell count was 19.6 was 0.1% eosinophils, creatinine 0.89, lactic acid 0.6, COVID, influenza and RSV RT PCR studies negative. Chest x-ray with left lower lobe pneumonia and right paratracheal mass. CT with contrast showed mild apical predominant paraseptal and centrilobular emphysema. Left lower lobe infiltrates, right paratracheal infiltrate and a right paratracheal mass that extended to the subcarinal region. Patient was placed on ceftriaxone and admitted to the hospital. 03/20/2024. The patient tells me he is the same today. His cough and green phlegm are stable, he still is having sweats, his congestion is the same and his body aches are the same. He is afebrile. His room air saturations are 99%. His white blood cell count is 8.7, his creatinine is 0.75. 03/21/2024; not short of breath. Less cough and less sputum. He has been having night sweats for a while at home. no fever. Pulse is 105, saturation 95% on room air. He is feeling much better compared to when he was admitted to the hospital. 03/22/24; He had a left inguinal LN biopsy, no shortness of breath, not coughing, no sputum. Will wait for results. DATA: 03/19/2024: EXAMINATION: CT chest abdomen w con INDICATION: Assess for malignancy with abnormal chest radiograph COMPARISON: None FINDINGS: Chest: Mild apical predominant paraseptal emphysema. Patchy groundglass opacities and consolidation in the basilar segments of the left lower lobe. There is additional dense consolidation and small amount surrounding patchy groundglass opacity in the anterobasilar right lower lobe. No other suspicious pulmonary nodules, pulmonary edema or pleural effusion. Heart size is normal. Atherosclerotic coronary artery calcifications. Small pericardial effusion. Thoracic aorta is normal in caliber with no dissection. Additional enhancing mediastinal mass including a 4.9 x 2.8 cm precarinal mass, 4.5 x 2.8 cm right paratracheal mass and 3.4 x 1.8 cm subcarinal mass which are suspicious for either lymphoma or metastatic disease. No other evident pathologically enlarged lymphadenopathy in the chest or visualized lower neck. Mild thoracic spondylosis. Abdomen: Liver, gallbladder, spleen, pancreas, bilateral adrenal glands and kidneys are normal. Visualized portions of bowels are unremarkable with no obstruction or abnormal bone or thickening. No pathologically enlarged abdominal or upper pelvic lymphadenopathy. Minimal lumbar spondylosis. IMPRESSION: 1. Mediastinal lymphadenopathy suspicious for malignancy either lymphoma or metastatic disease. No other lesions suspicious for primary or metastatic diseas e identified in the chest or abdomen. 2. Pneumonia in the bilateral lower lobes. 03/19/2024: EXAMINATION: XR chest 2V INDICATION: Cough TECHNIQUE: PA and lateral views of the chest were obtained. COMPARISON: None FINDINGS: Left lower lobar airspace opacities suspicious for pneumonia. Remainder the lungs are clear with no pulmonary edema, pleural effusion or pneumothorax. Heart size is normal. There is a left-sided aortic arch. There is a contralateral masslike right paratracheal opacity which could represent a mediastinal mass, lymphadenopathy or vascular structure. IMPRESSION: 1. Left lower lobe pneumonia. 2. Right paratracheal masslike opacity which could represent lymphadenopathy, other mediastinal mass or vascular structure. Recommend contrast-enhanced chest CT for further evaluation. Review of Systems Review of Systems: All systems reviewed & are unremarkable except as noted in HPI and below Exam Narrative: GEN: Alert, oriented, not in distress. Room air. CHEST: Equal air entry, symmetric excursion, clear breath sounds CV: Regular S1S2 no m/g/r ABD : (+) bowel sounds Extremities : no clubbing, cyanosis, or edema PSYCH: normal thought and speech Objective Data Vital Signs Vital Signs: Vital Signs - 24 hr 03/21/24 17:28 03/21/24 20:00 03/21/24 20:00 Temperature 36.6 C 37.6 C Pulse Rate 75 85 Respiratory Rate 18 16 Blood Pressure 134/99 H 139/95 H Pulse Oximetry 97 100 Oxygen Delivery Room Air 03/21/24 20:00 03/21/24 20:32 03/21/24 21:00 Temperature 37.6 C 36.6 C Pulse Rate 88 Respiratory Rate Blood Pressure Pulse Oximetry Oxygen Delivery 03/21/24 21:32 03/22/24 00:00 03/22/24 00:00 Temperature 36.6 C 36.5 C Pulse Rate 71 71 Respiratory Rate 18 Blood Pressure 127/86 Pulse Oximetry 97 Oxygen Delivery 03/22/24 04:00 03/22/24 04:00 03/22/24 08:00 Temperature 36.6 C 36.5 C Pulse Rate 85 82 78 Respiratory Rate 18 17 Blood Pressure 127/89 128/82 Pulse Oximetry 97 98 Oxygen Delivery 03/22/24 09:07 03/22/24 09:07 03/22/24 12:00 Temperature Pulse Rate 74 90 Respiratory Rate Blood Pressure Pulse Oximetry Oxygen Delivery Room Air 03/22/24 12:00 03/22/24 16:00 Temperature 36.6 C Pulse Rate 80 98 Respiratory Rate 17 Blood Pressure 124/84 Pulse Oximetry 98 Oxygen Delivery Intake/Output Intake/Output: Intake & Output 03/19/24 03/20/24 03/21/24 03/22/24 23:59 23:59 23:59 23:59 Intake Total 1780 2520 2420 640 Balance 1780 2520 2420 640 Meds/Results Medications: Active Medications Generic Name Dose Route Start Last Admin Trade Name Freq PRN Reason Stop Dose Admin Acetaminophen 650 mg 03/19/24 12:42 03/21/24 20:32 Acetaminophen 325 Mg Tablet PO 650 mg Q4H PRN Administration Mild Pain (1-3) or Fever Hydrocodone Bitart/Acetaminophen 1 tab 03/19/24 13:03 Hydrocodone/Acetaminophen (*Crx) 5-325 Mg Tablet PO Q4H PRN Pain Rated 4-6 Azithromycin 500 mg 03/22/24 09:00 03/22/24 09:07 Azithromycin 250 Mg Tablet PO 500 mg DAILY DAQUAN Administration Enoxaparin Sodium 40 mg 03/20/24 09:00 03/22/24 09:58 Enoxaparin 40 Mg/0.4 Ml Syringe SUB-Q Not Given DAILY DAQUAN Guaifenesin 1,200 mg 03/20/24 21:00 03/22/24 09:07 Guaifenesin 12 Hr 600 Mg Tabcr PO 1,200 mg Q12HR DAQUAN Administration Ceftriaxone Sodium 1 gm in 50 mls @ 100 mls/hr 03/19/24 10:50 03/22/24 10:31 Rocephin 1 Gm/Ns 50 Ml IVPB 100 mls/hr Q24H DAQUAN Administration Sodium Chloride 1,000 mls @ 100 mls/hr 03/19/24 13:05 03/20/24 02:05 Normal Saline Iv IV CONT 100 mls/hr .Q10H DAQUAN Administration Radiology Results: ITS Impressions Chest/Abdomen CT 03/19/24 12:05 IMPRESSION: 1. Mediastinal lymphadenopathy suspicious for malignancy either lymphoma or metastatic disease. No other lesions suspicious for primary or metastatic disease identified in the chest or abdomen. 2. Pneumonia in the bilateral lower lobes. Chest X-Ray 03/21/24 06:37 Impression: Probable mild bibasilar pulmonary edema/atelectasis, versus possibly pneumonia. Correlate clinically. Underlying COPD. Axilla US 03/21/24 14:19 IMPRESSION: Nonpathologically enlarged lymph nodes within the bilateral axilla, as detailed above. The lymph node within the left axilla is amenable to ultrasound-guided biopsy, should that become necessary. Chest/Abdomen/Pelvis CT 03/21/24 23:40 IMPRESSION: 1. Stable bilateral lower lobe pneumonia. 2. Worsened small pleural effusions. 3. Stable mediastinal lymphadenopathy suspicious for metastatic disease or lymphoma. 4. Mild emphysema. Soft Tissue Ultrasound 03/22/24 11:02 IMPRESSION: 1. Normal sized and appearing bilateral inguinal lymph nodes. Soft Tissue Ultrasound 03/22/24 11:02 IMPRESSION: 1. Normal sized and appearing bilateral inguinal lymph nodes. Lymph Node Biopsy Ultrasound 03/22/24 15:35 IMPRESSION: 1. Technically successful ultrasound-guided core needle biopsy of a suspicious lymph node within the left groin, as detailed above. Pathology pending Labs Labs: Laboratory Results - last 24 hr 03/21/24 03/22/24 05:57 04:58 WBC 6.9 RBC 3.96 L Hgb 12.6 L Hct 38.3 L MCV 96.7 MCH 31.8 MCHC 32.9 RDW 12.7 Plt Count 226 MPV 11.3 H Immature Gran % (Auto) 1.0 H Neut % (Auto) 56.2 Lymph % (Auto) 22.8 [place] % (Auto) 13.9 H Eos % (Auto) 5.1 H Baso % (Auto) 1.0 Lymph # (Auto) 1.57 [place] # (Auto) 1.0 H Eos # (Auto) 0.4 H Baso # (Auto) 0.1 Abs Immat Gran (auto) 0.07 H Absolute Neuts (auto) 3.9 Absolute Nucleated RBC 0.000 Nucleated RBC % 0.0 Sodium 136 L Potassium 4.6 Chloride 101 Carbon Dioxide 27 Anion Gap 8 BUN 16 Creatinine 0.80 Estim Creat Clear Calc 107 Estimated GFR > 60 Glucose 95 Calcium 8.3 L Total Bilirubin 0.4 AST 23 ALT 33 Alkaline Phosphatase 99 Total Protein 7.0 Albumin 3.4 L [id number] 273 H
[2024-03-23] VITALS (7 sets, daily range): BP systolic 127–138; BP diastolic 78–86; PULSE 69–90; RESP 18–20; TEMP 36.5–36.7; O2SAT 95–98
[2024-03-23 06:02] LABS: Basophils Absolute Auto 0.1 K/mm3 (0.0-0.1); Basophils Percent Auto 0.9 % (0.2-1.2); Eosinophils Absolute Auto 0.3 K/mm3 (0-0.3); Eosinophils Percent Auto 4.4 % (0-4.4); Hematocrit 40.8 % (42.0-52.0); Hemoglobin 13.6 g/dL (14.0-18.0); Immature Granulocyte Percent A 1.3 % (0-0.5); Lymphocytes Absolute Auto 1.91 K/mm3 (0.9-3.2); Lymphocytes Percent Auto 24.9 % (18.3-44.2); Mean Corpuscular HGB Conc 33.3 g/dl (32-36); Mean Corpuscular Hemoglobin 31.5 pg (26-34); Mean Corpuscular Volume 94.4 fl (80-100); Mean Platelet Volume 10.6 fl (7.4-10.4); Monocytes Absolute Auto 0.8 K/mm3 (0.1-0.6); Monocytes Percent Auto 10.8 % (2.6-8.5); Neutrophils Absolute Auto 4.4 K/mm3 (1.3-6.7); Neutrophils Percent Auto 57.7 % (45.5-73.1); Platelet Count Result 270 k/mm3 (150-375); Red Blood Count 4.32 M/mm3 (4.6-6.20); Red Cell Distribution Width 12.5 % (11.5-14.5); White Blood Count 7.7 K/mm3 (4.5-10.0)
[2024-03-23 06:19] LABS: Alanine Aminotransferase 33 U/L (6-50); Albumin Level 3.7 g/dL (3.5-5.1); Alkaline Phosphatase 104 U/L (38-126); Anion Gap 9 mmol/L (4-12); Aspartate Amino Transferase 25 U/L (17-59); Bilirubin,Total 0.4 mg/dL (0.2-1.3); Blood Urea Nitrogen 17 mg/dL (9-20); Calcium 9.1 mg/dL (8.4-10.2); Carbon Dioxide 25 mmol/L (22-30); Chloride 103 mmol/L (98-107); Estimated CRCL calculation 120 ml/min; Estimated Glomerular Filt Rate > 60; Glucose 99 mg/dL (65-110); Potassium 4.3 mmol/L (3.4-5.0); Sodium 137 mmol/L (137-145)
--- NOTE | 2024-03-23 08:31 | PM.IMPN ---
Progress Note: A&P Assessment and Plan (1) Bilateral pneumonia: Code(s): J18.9 - Pneumonia, unspecified organism Status: Acute Assessment and Plan: - CXR: Left lower lobe pneumonia. Right paratracheal masslike opacity which could represent lymphadenopathy, other mediastinal mass or vascular structure. - Chest/abdomen CT: Mediastinal lymphadenopathy suspicious for malignancy either lymphoma or metastatic disease. No other lesions suspicious for primary or metastatic disease identified in the chest or abdomen. Pneumonia in the bilateral lower lobes. - started on CAP tx: azithromycin ceftriaxone started on 03/19, MRSA negative discontinued vancomycin - Viral PCR: negative for Flu/COVID/RSV - MRSA negative - blood cultures obtained on 03/19: NGTD - no supplemental O2 requirement - Monitor vital signs, I&Os, neuro status and patient is a fall risk - Follow WBC, serum electrolytes, temperature curves and cultures - Pulmonology consulted Urine for Legionella, urine for pneumococcal antigen, serum mycoplasma IgM and a respiratory pathogen panel HIV negative Repeat an chest x-ray on 03/21/2024: Probable mild bibasilar pulmonary edema/atelectasis, versus possibly pneumonia. Underlying COPD. - continue antibiotics:Will continue vancomycin day 1, ceftriaxone and azithromycin day 3. (2) Lymphadenopathy, mediastinal: Code(s): R59.0 - Localized enlarged lymph nodes Status: Acute Assessment and Plan: Concerning for cancer (primary or metastatic), lymphoma 27 pack year smoking history - Possible axillary lymphadenopathy, however was unable to palpate this myself. Per pulmonology felt more indurated than anything. - CXR: Left lower lobe pneumonia. Right paratracheal masslike opacity which could represent lymphadenopathy, other mediastinal mass or vascular structure. - Chest/abdomen CT: Mediastinal lymphadenopathy suspicious for malignancy either lymphoma or metastatic disease. No other lesions suspicious for primary or metastatic disease identified in the chest or abdomen. Pneumonia in the bilateral lower lobes. - Chest/abdomen/pelvis CT: 1. Stable bilateral lower lobe pneumonia. 2. Worsened small pleural effusions. 3. Stable mediastinal lymphadenopathy suspicious for metastatic disease or lymphoma. 4. Mild emphysema. - US axillae: Nonpathologically enlarged lymph nodes within the bilateral axilla. The LN within the left axilla is amenable to US biopsy - US bx of left axilla ordered - Pulmonology consulted, appreciate recommendations HIV negative US axillae, needle bx if appropriately enlarged LN CT chest/abdomen/pelvis looking for progression of pneumonia and any LN that may be present in the groin. Potential bronchoscopy with bx of subcarinal LN (3) COPD (chronic obstructive pulmonary disease): Code(s): J44.9 - Chronic obstructive pulmonary disease, unspecified Status: Acute Assessment and Plan: Does not appear in acute exacerbation. - CXR: Left lower lobe pneumonia. Right paratracheal masslike opacity which could represent lymphadenopathy, other mediastinal mass or vascular structure. - Chest/abdomen CT: Mediastinal lymphadenopathy suspicious for malignancy either lymphoma or metastatic disease. No other lesions suspicious for primary or metastatic disease identified in the chest or abdomen. Pneumonia in the bilateral lower lobes. - Pulmonology consulted does not need inhaled or systemic steroids at this time change his albuterol nebulizer to DuoNebs q.6 hours, change to guaifenesin 1200 mg p.o. b.i.d. abg unremarkable check alpha 1 anti trypsin Plan workign with care coordination to help pt find placement Time Spent With Patient Time with patient: 25 - 35 minutes Subjective Date/time seen: 03/23/24 08:31 Interval history: Patient is homeless and has a history of being incarcerated from age [age] and then being in and out of care home from 2009 to February of 2023. in January of 2023 approximately 1 month prior to being discharged he was tested for HIV which was negative. In his usual state of health the patient has no respiratory issues and no respiratory limitations in his activities of daily living. Patient smoked tobacco from 21 to current at 1 pack per day he for total of 27 pack years. Patient smokes marijuana 2 to 3 times a week from age 27 to current. Patient snorted methamphetamine for 2 months from October 2020 to 11 after his mom . Patient denied snorting cocaine. Patient denies ever using IV drugs. Patient denies heroin use. Patient has no family other than a brother who is also homeless. 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 Last time he did this work was 2020. Patient denies stand blasting, welding, asbestos work, professional painting, steel tandem mill sticker, coal mining, brick or concrete work. One month ago he developed sinus congestion and rhinorrhea. Four days ago he developed hot and cold spells and increased phlegm production which was green. Three days ago he developed cough and 3 days ago he developed shortness of breath. Of note 1 week ago the patient noticed a area of swelling almost like a cyst in his right armpit which persists. One day ago the patient noticed a cyst or swelling in his left armpit that persists. He denies any other skin rashes, new arthritis, change in bowel or urine habits. Symptoms progressed and he presented to [facility] on 03/19/2024 and they did not meet his care expectations and he left and presented to [facility]. In the emergency room his blood pressure was 123/89, heart rate 129, respiration rate 16, temperature 37.2?, rest room air saturation 98%. White blood cell count was 19.6 was 0.1% eosinophils, creatinine 0.89, lactic acid 0.6, COVID, influenza and RSV RT PCR studies negative. Chest x-ray with left lower lobe pneumonia and right paratracheal mass. CT with contrast showed mild apical predominant paraseptal and centrilobular emphysema. Left lower lobe infiltrates, right paratracheal infiltrate and a right paratracheal mass that extended to the subcarinal region. Patient was placed on ceftriaxone and admitted to the hospital. 03/19/2024: EXAMINATION: CT chest abdomen w con INDICATION: Assess for malignancy with abnormal chest radiograph COMPARISON: None FINDINGS: Chest: Mild apical predominant paraseptal emphysema. Patchy groundglass opacities and consolidation in the basilar segments of the left lower lobe. There is additional dense consolidation and small amount surrounding patchy groundglass opacity in the anterobasilar right lower lobe. No other suspicious pulmonary nodules, pulmonary edema or pleural effusion. Heart size is normal. Atherosclerotic coronary artery calcifications. Small pericardial effusion. Thoracic aorta is normal in caliber with no dissection. Additional enhancing mediastinal mass including a 4.9 x 2.8 cm precarinal mass, 4.5 x 2.8 cm right paratracheal mass and 3.4 x 1.8 cm subcarinal mass which are suspicious for either lymphoma or metastatic disease. No other evident pathologically enlarged lymphadenopathy in the chest or visualized lower neck. Mild thoracic spondylosis. Abdomen: Liver, gallbladder, spleen, pancreas, bilateral adrenal glands and kidneys are normal. Visualized portions of bowels are unremarkable with no obstruction or abnormal bone or thickening. No pathologically enlarged abdominal or upper pelvic lymphadenopathy. Minimal lumbar spondylosis. IMPRESSION: 1. Mediastinal lymphadenopathy suspicious for malignancy either lymphoma or metastatic disease. No other lesions suspicious for primary or metastatic disease identified in the chest or abdomen. 2. Pneumonia in the bilateral lower lobes. 03/19/2024: EXAMINATION: XR chest 2V INDICATION: Cough TECHNIQUE: PA and lateral views of the chest were obtained. COMPARISON: None FINDINGS: Left lower lobar airspace opacities suspicious for pneumonia. Remainder the lungs are clear with no pulmonary edema, pleural effusion or pneumothorax. Heart size is normal. There is a left-sided aortic arch. There is a contralateral masslike right paratracheal opacity which could represent a mediastinal mass, lymphadenopathy or vascular structure. IMPRESSION: 1. Left lower lobe pneumonia. 2. Right paratracheal masslike opacity which could represent lymphadenopathy, other mediastinal mass or vascular structure. Recommend contrast-enhanced chest CT for further evaluation. Pulm is following. Pt is a smoker-trying to quit On antibiotics. still has cough-non productive Review of Systems Review of Systems: 12 systems were reviewed and are negative except for as per HPI. All systems reviewed & are unremarkable except as noted in HPI and below Exam Narrative: AF HR 78 RR 17 SpO2 98 BP 128/82 General: male in no acute respiratory distress who is nontoxic appearing, lying semi recumbent in bed. HEENT: Normocephalic. Atraumatic. Extraocular movement intact. Sclera clear and anicteric. No facial asymmetry. Chest: Lungs are diminished to auscultation bilaterally. No wheezes or crackles. CV: Heart was regular rate and rhythm. Abd: Abdomen was soft. Nontender. Nondistended. Positive bowel sounds. No organomegaly or masses. Ext: No clubbing, cyanosis, or edema. 2+ DP pulses bilaterally. Unable to palpate axillary nodes. Neuro: Patient is alert. Speech is clear. Objective Data Vital Signs Vital Signs: Vital Signs - 24 hr 03/22/24 09:07 03/22/24 09:07 03/22/24 12:00 Temperature Pulse Rate 74 90 Respiratory Rate Blood Pressure Pulse Oximetry Oxygen Delivery Room Air 03/22/24 12:00 03/22/24 16:00 03/22/24 20:00 Temperature 97.8 F 98.2 F Pulse Rate 80 98 76 Respiratory Rate 17 20 Blood Pressure 124/84 119/79 Pulse Oximetry 98 97 Oxygen Delivery 03/22/24 20:00 03/22/24 20:00 03/23/24 00:00 Temperature Pulse Rate 87 80 Respiratory Rate Blood Pressure Pulse Oximetry Oxygen Delivery Room Air 03/23/24 00:00 03/23/24 04:00 03/23/24 04:00 Temperature 97.9 F 98.0 F Pulse Rate 77 73 74 Respiratory Rate 18 20 Blood Pressure 127/86 135/81 Pulse Oximetry 98 95 Oxygen Delivery Intake/Output Intake/Output: Intake & Output 03/20/24 03/21/24 03/22/24 03/23/24 23:59 23:59 23:59 23:59 Intake Total 2520 2420 862 250 Output Total 2 Balance 2520 2420 862 248 Meds/Results Medications: Active Medications Generic Name Dose Route Start Last Admin Trade Name Freq PRN Reason Stop Dose Admin Acetaminophen 650 mg 03/19/24 12:42 03/21/24 20:32 Acetaminophen 325 Mg Tablet PO 650 mg Q4H PRN Administration Mild Pain (1-3) or Fever Hydrocodone Bitart/Acetaminophen 1 tab 03/19/24 13:03 Hydrocodone/Acetaminophen (*Crx) 5-325 Mg Tablet PO Q4H PRN Pain Rated 4-6 Azithromycin 500 mg 03/22/24 09:00 03/22/24 09:07 Azithromycin 250 Mg Tablet PO 500 mg DAILY DAQUAN Administration Enoxaparin Sodium 40 mg 03/20/24 09:00 03/22/24 09:58 Enoxaparin 40 Mg/0.4 Ml Syringe SUB-Q Not Given DAILY DAQUAN Guaifenesin 1,200 mg 03/20/24 21:00 03/22/24 20:06 Guaifenesin 12 Hr 600 Mg Tabcr PO 1,200 mg Q12HR DAQUAN Administration Ceftriaxone Sodium 1 gm in 50 mls @ 100 mls/hr 03/19/24 10:50 03/22/24 10:31 Rocephin 1 Gm/Ns 50 Ml IVPB 100 mls/hr Q24H DAQUAN Administration Sodium Chloride 1,000 mls @ 100 mls/hr 03/19/24 13:05 03/20/24 02:05 Normal Saline Iv IV CONT 100 mls/hr .Q10H DAQUAN Administration Radiology Results: ITS Impressions Chest/Abdomen CT 03/19/24 12:05 IMPRESSION: 1. Mediastinal lymphadenopathy suspicious for malignancy either lymphoma or metastatic disease. No other lesions suspicious for primary or metastatic disease identified in the chest or abdomen. 2. Pneumonia in the bilateral lower lobes. Chest X-Ray 03/21/24 06:37 Impression: Probable mild bibasilar pulmonary edema/atelectasis, versus possibly pneumonia. Correlate clinically. Underlying COPD. Axilla US 03/21/24 14:19 IMPRESSION: Nonpathologically enlarged lymph nodes within the bilateral axilla, as detailed above. The lymph node within the left axilla is amenable to ultrasound-guided biopsy, should that become necessary. Chest/Abdomen/Pelvis CT 03/21/24 23:40 IMPRESSION: 1. Stable bilateral lower lobe pneumonia. 2. Worsened small pleural effusions. 3. Stable mediastinal lymphadenopathy suspicious for metastatic disease or lymphoma. 4. Mild emphysema. Soft Tissue Ultrasound 03/22/24 11:02 IMPRESSION: 1. Normal sized and appearing bilateral inguinal lymph nodes. Soft Tissue Ultrasound 03/22/24 11:02 IMPRESSION: 1. Normal sized and appearing bilateral inguinal lymph nodes. Lymph Node Biopsy Ultrasound 03/22/24 15:35 IMPRESSION: 1. Technically successful ultrasound-guided core needle biopsy of a suspicious lymph node within the left groin, as detailed above. Pathology pending Labs Labs: Laboratory Results - last 24 hr 03/23/24 05:25 WBC 7.7 RBC 4.32 L Hgb 13.6 L Hct 40.8 L MCV 94.4 MCH 31.5 MCHC 33.3 RDW 12.5 Plt Count 270 MPV 10.6 H Immature Gran % (Auto) 1.3 H Neut % (Auto) 57.7 Lymph % (Auto) 24.9 Starke % (Auto) 10.8 H Eos % (Auto) 4.4 Baso % (Auto) 0.9 Lymph # (Auto) 1.91 Starke # (Auto) 0.8 H Eos # (Auto) 0.3 Baso # (Auto) 0.1 Abs Immat Gran (auto) 0.10 H Absolute Neuts (auto) 4.4 Absolute Nucleated RBC 0.000 Nucleated RBC % 0.0 Sodium 137 Potassium 4.3 Chloride 103 Carbon Dioxide 25 Anion Gap 9 BUN 17 Creatinine 0.69 L Estim Creat Clear Calc 120 Estimated GFR > 60 Glucose 99 Calcium 9.1 Total Bilirubin 0.4 AST 25 ALT 33 Alkaline Phosphatase 104 Total Protein 7.0 Albumin 3.7 Quality VTE Prophylaxis VTE prophylaxis: mechanical ordered
[2024-03-23] MEDS: ENOXAPARIN 40 MG/0.4 ML SYRINGE SUB-Q (09:38)
[2024-03-23] MEDS: guaiFENesin 12 HR 600 MG TABCR 1200 MG PO ×2 (09:38→20:40)
[2024-03-23] MEDS: AZITHROMYCIN 250 MG TABLET 500 MG PO (09:38)
[2024-03-23] MEDS: AMOXICILLIN/CLAVULANATE K 875-125 MG TAB 1 TABLET PO ×2 (12:31→20:40)
[2024-03-23 15:19] LABS: Adenovirus DNA Not Detected (Not Detected); Chlamydophila pneumoniae Not Detected (Not Detected); Coronavirus 229E Not Detected (Not Detected); Coronavirus HKU1 Not Detected (Not Detected); Coronavirus NL63 Not Detected (Not Detected); Coronavirus OC43 Not Detected (Not Detected); Human Metapneumovirus Not Detected (Not Detected); Human Parainfluenza Virus 1 Not Detected (Not Detected); Human Parainfluenza Virus 2 Not Detected (Not Detected); Human Parainfluenza Virus 3 Not Detected (Not Detected); Human Parainfluenza Virus 4 Not Detected (Not Detected); Human RSV B Not Detected (Not Detected); Influenza A Not Detected (Not Detected); Influenza B Not Detected (Not Detected); Mycoplasma pneumoniae Not Detected (Not Detected); Rhinovirus/Enterovirus Detected (Not Detected)
--- NOTE | 2024-03-23 16:36 | PM.PNPUL ---
Progress Note: A&P Assessment and Plan (1) Bilateral pneumonia: Code(s): J18.9 - Pneumonia, unspecified organism Status: Acute Assessment and Plan: Unhoused man; was incarcerated until February of 2023, admitted Mar 19 with 1 month of nasal and congestion, intermittent rhinorrhea, 4 days feeling hot and cold with green phlegm for 3 days cough and shortness of breath; wbc 19.6, chest x-ray with left lower lobe infiltrate and a CT scan with evidence of a left lower lobe pneumonia and a right perihilar pneumonia. He had an extended respiratory pathogen panel that was (+) for rhinovirus/enterovirus, HIV negative; serology negative for COVID, influenza, RSV. There is no specific treatment for rhinovirus. Completed IV ceftriaxone and azithromycin, now on oral Augmentin. Urine antigens are pending for Legionella, pneumococcal antigens, and serum mycoplasma IgM. (2) Mediastinal mass: Code(s): J98.59 - Other diseases of mediastinum, not elsewhere classified Status: Acute Assessment and Plan: Long tobacco history; 27 pack year tobacco use, right paratracheal and subcarinal mediastinal mass, no pulmonary nodules. His axillae did not have LN worth biopsy. He had Left inguinal LN biopsy 03/22/24, results pending. Differential diagnosis includes cancer (primary or metastatic), lymphoma, or doubt reactive lymphadenopathy from pneumonia. HIV is negative. He is getting Care Coordination assistance with living arrangements. Medicaid plan, access to subsidized housing through Medicaid, recently got approved for food stamps and gets about $250/month. (3) COPD (chronic obstructive pulmonary disease): Code(s): J44.9 - Chronic obstructive pulmonary disease, unspecified Status: Acute Assessment and Plan: He has a 27 pack year history of tobacco use. CT scan of the chest on 03/19/2024 shows mild apical predominant paraseptal and centrilobular emphysema. I have no PFTs. Initial wbc on admission with pneumonia is 19.6 with eosinophils 0.1%=20/uL. 03/20/24 ABG on room air = pH 7.42, pCO2 35.5, pO2 90.7, HCO3 23.1, saturation 97.2%, hemoglobin 11.3 g/dL. alpha-1 phenotype is was ordered, he got a serum level which is 273, high, not consistent with alpha-1 AT deficiency. This is an acute phase reactant, and can be high with pneumonia. Plan: currently patient has no active wheezing, likely not a COPD exacerbation and he does not need inhaled or systemic steroids at this time. He had his albuterol nebulizer changed to DuoNebs q.6 hours, changed guaifenesin 1200 mg p.o. b.i.d.. Remains on room air with saturations 99%. (4) Tobacco dependence: Code(s): F17.200 - Nicotine dependence, unspecified, uncomplicated Status: Acute Assessment and Plan: He has 27 pack year history. Plan plan:1) Await results of Left inguinal lymph node biopsy from today Mar 22. 2) continue oral Augmentin. Subjective Date/time seen: 03/23/24 16:36 Interval history: 03/20/24; 03/20/2022: This is a new pulmonary consult for pneumonia and mediastinal mass. 48-year-old tobacco user who is homeless with no significant past medical history currently on no medications. Patient is homeless and has a history of being incarcerated from age [age] and then being in [facility] out of [facility] to February of 2023. in January of 2023 approximately 1 month prior to being discharged he was tested for HIV which was negative. In his usual state of health the patient has no respiratory issues and no respiratory limitations in his activities of daily living. Patient smoked tobacco from 21 to current at 1 pack per day he for total of 27 pack years. Patient smokes marijuana 2 to 3 times a week from age 27 to current. Patient snorted methamphetamine for 2 months from October 2020 to after his mom . Patient denied snorting cocaine. Patient denies ever using IV drugs. Patient denies heroin use. Patient has no family other than a brother who is also homeless. Patient worked in the [employer] profession for his working career. 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 Last time he did this work was 2020. Patient denies stand blasting, welding, asbestos work, professional painting, steel wet milling wheel operator, coal mining, brick or concrete work. One month ago he developed sinus congestion and rhinorrhea. Four days ago he developed hot and cold spells and increased phlegm production which was green. Three days ago he developed cough and 3 days ago he developed shortness of breath. Of note 1 week ago the patient noticed a area of swelling almost like a cyst in his right armpit which persists. One day ago the patient noticed a cyst or swelling in his left armpit that persists. He denies any other skin rashes, new arthritis, change in bowel or urine habits. Symptoms progressed and he presented to [facility] on 03/19/2024 and they did not meet his care expectations and he left and presented to [facility]. In the emergency room his blood pressure was 123/89, heart rate 129, respiration rate 16, temperature 37.2?, rest room air saturation 98%. White blood cell count was 19.6 was 0.1% eosinophils, creatinine 0.89, lactic acid 0.6, COVID, influenza and RSV RT PCR studies negative. Chest x-ray with left lower lobe pneumonia and right paratracheal mass. CT with contrast showed mild apical predominant paraseptal and centrilobular emphysema. Left lower lobe infiltrates, right paratracheal infiltrate and a right paratracheal mass that extended to the subcarinal region. Patient was placed on ceftriaxone and admitted to the hospital. 03/20/2024. The patient tells me he is the same today. His cough and green phlegm are stable, he still is having sweats, his congestion is the same and his body aches are the same. He is afebrile. His room air saturations are 99%. His white blood cell count is 8.7, his creatinine is 0.75. 03/21/2024; not short of breath. Less cough and less sputum. He has been having night sweats for a while at home. no fever. Pulse is 105, saturation 95% on room air. He is feeling much better compared to when he was admitted to the hospital. 03/22/24; He had a left inguinal LN biopsy, no shortness of breath, not coughing, no sputum. Will wait for results. 03/23/24; he is on room air, has no complaints, no hemoptysis, eating well. He is on antibiotics for treatment of pneumonia, blayne in the LLL. Alpha-1 level is 273 on Mar 21. This is not low. He does not appear to have alpha-1 antitrypsin deficiency. DATA: 03/19/2024: EXAMINATION: CT chest abdomen w con INDICATION: Assess for malignancy with abnormal chest radiograph COMPARISON: None FINDINGS: Chest: Mild apical predominant paraseptal emphysema. Patchy ground glass opacities and consolidation in the basilar segments of the left lower lobe. There is additional dense consolidation and small amount surrounding patchy ground glass opacity in the anterobasal right lower lobe. No other suspicious pulmonary nodules, pulmonary edema or pleural effusion. Heart size is normal. Atherosclerotic coronary artery calcifications. Small pericardial effusion. Thoracic aorta is normal in caliber with no dissection. Additional enhancing mediastinal mass including a 4.9 x 2.8 cm precarinal mass, 4.5 x 2.8 cm right paratracheal mass and 3.4 x 1.8 cm subcarinal mass which are suspicious for either lymphoma or metastatic disease. No other evident pathologically enlarged lymphadenopathy in the chest or visualized lower neck. Mild thoracic spondylosis. Abdomen: Liver, gallbladder, spleen, pancreas, bilateral adrenal glands and kidneys are normal. Visualized portions of bowels are unremarkable with no obstruction or abnormal bone or thickening. No pathologically enlarged abdominal or upper pelvic lymphadenopathy. Minimal lumbar spondylosis. IMPRESSION: 1. Mediastinal lymphadenopathy suspicious for malignancy either lymphoma or metastatic disease. No other lesions suspicious for primary or metastatic disease identified in the chest or abdomen. 2. Pneumonia in the bilateral lower lobes. 03/19/2024: EXAMINATION: XR chest 2V INDICATION: Cough TECHNIQUE: PA and lateral views of the chest were obtained. FINDINGS: Left lower lobar airspace opacities suspicious for pneumonia. Remainder the lungs are clear with no pulmonary edema, pleural effusion or pneumothorax. Heart size is normal. There is a left-sided aortic arch. There is a contralateral masslike right paratracheal opacity which could represent a mediastinal mass, lymphadenopathy or vascular structure. IMPRESSION: 1. Left lower lobe pneumonia. 2. Right paratracheal masslike opacity which could represent lymphadenopathy, other mediastinal mass or vascular structure. Recommend contrast-enhanced chest CT for further evaluation. Review of Systems Review of Systems: All systems reviewed & are unremarkable except as noted in HPI and below Exam Narrative: GEN: Alert, oriented, not in distress. Room air. saturation 96% CHEST: Equal air entry, symmetric excursion, clear breath sounds CV: Regular S1S2 no m/g/r ABD : (+) bowel sounds Extremities : no clubbing, cyanosis, or edema PSYCH: normal thought and speech Objective Data Vital Signs Vital Signs: Vital Signs - 24 hr 03/22/24 20:00 03/22/24 20:00 03/22/24 20:00 Temperature 36.8 C Pulse Rate 76 87 Respiratory Rate 20 Blood Pressure 119/79 Pulse Oximetry 97 Oxygen Delivery Room Air 03/23/24 00:00 03/23/24 00:00 03/23/24 04:00 Temperature 36.6 C Pulse Rate 80 77 73 Respiratory Rate 18 Blood Pressure 127/86 Pulse Oximetry 98 Oxygen Delivery 03/23/24 04:00 03/23/24 08:00 03/23/24 08:00 Temperature 36.7 C 36.6 C Pulse Rate 74 72 70 Respiratory Rate 20 19 Blood Pressure 135/81 130/78 Pulse Oximetry 95 96 Oxygen Delivery 03/23/24 11:57 03/23/24 12:00 03/23/24 16:00 Temperature 36.5 C 36.6 C Pulse Rate 69 78 78 Respiratory Rate 18 19 Blood Pressure 128/83 130/78 Pulse Oximetry 98 96 Oxygen Delivery Intake/Output Intake/Output: Intake & Output 03/20/24 03/21/24 03/22/24 03/23/24 23:59 23:59 23:59 23:59 Intake Total 2520 2420 862 1090 Output Total 2 Balance 2520 2420 862 1088 Meds/Results Medications: Active Medications Generic Name Dose Route Start Last Admin Trade Name Freq PRN Reason Stop Dose Admin Acetaminophen 650 mg 03/19/24 12:42 03/21/24 20:32 Acetaminophen 325 Mg Tablet PO 650 mg Q4H PRN Administration Mild Pain (1-3) or Fever Hydrocodone Bitart/Acetaminophen 1 tab 03/19/24 13:03 Hydrocodone/Acetaminophen (*Crx) 5-325 Mg Tablet PO Q4H PRN Pain Rated 4-6 Amoxicillin/Clavulanate Potassium 1 tablet 03/23/24 11:05 03/23/24 12:31 Amoxicillin/Clavulanate K 875-125 Mg Tab PO 03/25/24 21:01 1 tablet Q12HR DAQUAN Administration Enoxaparin Sodium 40 mg 03/20/24 09:00 03/23/24 09:38 Enoxaparin 40 Mg/0.4 Ml Syringe SUB-Q 40 mg DAILY DAQUAN Administration Guaifenesin 1,200 mg 03/20/24 21:00 03/23/24 09:38 Guaifenesin 12 Hr 600 Mg Tabcr PO 1,200 mg Q12HR DAQUAN Administration Sodium Chloride 1,000 mls @ 100 mls/hr 03/19/24 13:05 03/20/24 02:05 Normal Saline Iv IV CONT 100 mls/hr .Q10H DAQUAN Administration Radiology Results: ITS Impressions Chest/Abdomen CT 03/19/24 12:05 IMPRESSION: 1. Mediastinal lymphadenopathy suspicious for malignancy either lymphoma or metastatic disease. No other lesions suspicious for primary or metastatic disease identified in the chest or abdomen. 2. Pneumonia in the bilateral lower lobes. Chest X-Ray 03/21/24 06:37 Impression: Probable mild bibasilar pulmonary edema/atelectasis, versus possibly pneumonia. Correlate clinically. Underlying COPD. Axilla US 03/21/24 14:19 IMPRESSION: Nonpathologically enlarged lymph nodes within the bilateral axilla, as detailed above. The lymph node within the left axilla is amenable to ultrasound-guided biopsy, should that become necessary. Chest/Abdomen/Pelvis CT 03/21/24 23:40 IMPRESSION: 1. Stable bilateral lower lobe pneumonia. 2. Worsened small pleural effusions. 3. Stable mediastinal lymphadenopathy suspicious for metastatic disease or lymphoma. 4. Mild emphysema. Soft Tissue Ultrasound 03/22/24 11:02 IMPRESSION: 1. Normal sized and appearing bilateral inguinal lymph nodes. Soft Tissue Ultrasound 03/22/24 11:02 IMPRESSION: 1. Normal sized and appearing bilateral inguinal lymph nodes. Lymph Node Biopsy Ultrasound 03/22/24 15:35 IMPRESSION: 1. Technically successful ultrasound-guided core needle biopsy of a suspicious lymph node within the left groin, as detailed above. Pathology pending Labs Labs: Laboratory Results - last 24 hr 03/20/24 03/23/24 10:47 05:25 WBC 7.7 RBC 4.32 L Hgb 13.6 L Hct 40.8 L MCV 94.4 MCH 31.5 MCHC 33.3 RDW 12.5 Plt Count 270 MPV 10.6 H Immature Gran % (Auto) 1.3 H Neut % (Auto) 57.7 Lymph % (Auto) 24.9 [place] % (Auto) 10.8 H Eos % (Auto) 4.4 Baso % (Auto) 0.9 Lymph # (Auto) 1.91 [place] # (Auto) 0.8 H Eos # (Auto) 0.3 Baso # (Auto) 0.1 Abs Immat Gran (auto) 0.10 H Absolute Neuts (auto) 4.4 Absolute Nucleated RBC 0.000 Nucleated RBC % 0.0 Sodium 137 Potassium 4.3 Chloride 103 Carbon Dioxide 25 Anion Gap 9 BUN 17 Creatinine 0.69 L Estim Creat Clear Calc 120 Estimated GFR > 60 Glucose 99 Calcium 9.1 Total Bilirubin 0.4 AST 25 ALT 33 Alkaline Phosphatase 104 Total Protein 7.0 Albumin 3.7 Nasal RSV Type A (PCR) Not detected Nasal RSV Type B (PCR) Not detected Chlamy pneumoniae PCR Not detected Adenovirus DNA Not detected Human Bocavirus (BIRDIE) Not detected Coronavirus Type OC43 Not detected Coronavirus Type HKU1 Not detected Coronavirus Type 229E Not detected Coronavirus Type NL63 Not detected Human Metapneumovir PCR Not detected Influenza A (PCR) Not detected Influenza A (H1) RNA Not detected Influenza A (H3) PCR Not detected M. pneumoniae DNA Not detected Parainfluenza PCR Not detected Parainfluenza 2 (PCR) Not detected Parainfluenza 3 RNA (PCR) Not detected Parainfluenza 4 (PCR) Not detected Rhino/Enterovirus (BIRDIE) Detected A Influenza Type B (PCR) Not detected Misc Test Comment see note
[2024-03-23 17:54] LABS: Mycoplasma IgM Antibody Titer 131 U/mL
[2024-03-23 19:28] LABS: Pneumococcal Antigen Urine DETECTED
[2024-03-24] VITALS (10 sets, daily range): BP systolic 102–132; BP diastolic 73–89; PULSE 66–99; RESP 16–20; TEMP 36.4–36.6; O2SAT 97–99
[2024-03-24 06:22] LABS: Basophils Absolute Auto 0.1 K/mm3 (0.0-0.1); Basophils Percent Auto 0.8 % (0.2-1.2); Eosinophils Absolute Auto 0.4 K/mm3 (0-0.3); Eosinophils Percent Auto 4.7 % (0-4.4); Hematocrit 41.1 % (42.0-52.0); Hemoglobin 13.8 g/dL (14.0-18.0); Immature Granulocyte Absolute 0.16 K/mm3 (0.00-0.031); Immature Granulocyte Percent A 1.9 % (0-0.5); Lymphocytes Percent Auto 23.6 % (18.3-44.2); Mean Corpuscular HGB Conc 33.6 g/dl (32-36); Mean Corpuscular Hemoglobin 32.3 pg (26-34); Mean Corpuscular Volume 96.3 fl (80-100); Mean Platelet Volume 10.8 fl (7.4-10.4); Monocytes Absolute Auto 0.8 K/mm3 (0.1-0.6); Monocytes Percent Auto 9.6 % (2.6-8.5); Neutrophils Percent Auto 59.4 % (45.5-73.1); Platelet Count Result 323 k/mm3 (150-375); Red Blood Count 4.27 M/mm3 (4.6-6.20); Red Cell Distribution Width 12.7 % (11.5-14.5); White Blood Count 8.5 K/mm3 (4.5-10.0)
[2024-03-24 06:27] LABS: Alanine Aminotransferase 34 U/L (6-50); Albumin Level 3.7 g/dL (3.5-5.1); Alkaline Phosphatase 95 U/L (38-126); Anion Gap 11 mmol/L (4-12); Aspartate Amino Transferase 31 U/L (17-59); Bilirubin,Total 0.4 mg/dL (0.2-1.3); Blood Urea Nitrogen 23 mg/dL (9-20); Calcium 8.6 mg/dL (8.4-10.2); Carbon Dioxide 23 mmol/L (22-30); Chloride 103 mmol/L (98-107); Estimated CRCL calculation 107 ml/min; Estimated Glomerular Filt Rate > 60; Glucose 94 mg/dL (65-110); Potassium 4.4 mmol/L (3.4-5.0); Sodium 137 mmol/L (137-145)
[2024-03-24] MEDS: guaiFENesin 12 HR 600 MG TABCR 1200 MG PO ×2 (09:37→21:09)
[2024-03-24] MEDS: ENOXAPARIN 40 MG/0.4 ML SYRINGE SUB-Q (09:37)
[2024-03-24] MEDS: AMOXICILLIN/CLAVULANATE K 875-125 MG TAB 1 TABLET PO ×2 (09:37→21:08)
--- NOTE | 2024-03-24 10:16 | P.DS_ITS ---
DS: Admitting Diagnosis Discharge Date 03/24 Admitting Diagnosis cough, sob DS: Discharge Diagnosis Discharge Diagnosis (1) Bilateral pneumonia: Code(s): J18.9 - Pneumonia, unspecified organism Status: Acute (2) Lymphadenopathy, mediastinal: Code(s): R59.0 - Localized enlarged lymph nodes Status: Acute (3) COPD (chronic obstructive pulmonary disease): Code(s): J44.9 - Chronic obstructive pulmonary disease, unspecified Status: Acute DS: Summary Hospital Course Hospital Course: 48-year-old male no known medical history presents the hospital with shortness of breath. Patient states that he has had shortness of breath and cough for the last couple days. And swelling in his left armpit. Patient denies fevers chills, weight loss, poor appetite or history of cancer. He states that his mother has history of breast cancer. He denies nausea or vomiting. CT scan with evidence of a left lower lobe pneumonia and a right perihilar pneumonia. He had an extended respiratory pathogen panel that was (+) for rhinovirus/enterovirus, HIV negative; serology negative for COVID, influenza, RSV. There is no specific treatment for rhinovirus except supportive measures. Completed IV ceftriaxone and azithromycin, now on oral Augmentin-has three more doses left-END date 03/25 at pm. Urine antigens are pending for Legionella, pneumococcal antigens, and serum mycoplasma IgM. Long tobacco history; 27 pack year tobacco use, right paratracheal and subcar inal mediastinal mass, no pulmonary nodules. His axillae did not have LN worth biopsy. He had Left inguinal LN biopsy 03/22/24, results pending. Differential diagnosis includes cancer (primary or metastatic), lymphoma, or doubt reactive lymphadenopathy from pneumonia. HIV is negative. He will have to f/u with pulmonology after discharge Status at Discharge Functional status at discharge: independent ambulation Overall status at discharge: patient is progressing back to baseline Time Spent with Patient Time attestation: Total time spent providing and/or coordinating discharge services: Time spent: Greater than 30 minutes Exam Narrative: General: male in no acute respiratory distress who is nontoxic appearing, lying semi recumbent in bed. HEENT: Normocephalic. Atraumatic. Extraocular movement intact. Sclera clear and anicteric. No facial asymmetry. Chest: Lungs are diminished to auscultation bilaterally. No wheezes or crackles. CV: Heart was regular rate and rhythm. Abd: Abdomen was soft. Nontender. Nondistended. Positive bowel sounds. No organomegaly or masses. Ext: No clubbing, cyanosis, or edema. 2+ DP pulses bilaterally. Unable to palpate axillary nodes. Neuro: Patient is alert. Speech is clear. Const: General: comfortable DS: Data Data Completed and Pending Completed studies during hospitalization: Pending at discharge 03/22/24 14:50 Surgical [PTH] Routine Labs on day of discharge: Labs from last 24 hours 03/24/24 03/20/24 03/20/24 05:32 20:41 10:47 WBC 8.5 RBC 4.27 L Hgb 13.8 L Hct 41.1 L MCV 96.3 MCH 32.3 MCHC 33.6 RDW 12.7 Plt Count 323 MPV 10.8 H Immature Gran % (Auto) 1.9 H Neut % (Auto) 59.4 Lymph % (Auto) 23.6 [place] % (Auto) 9.6 H Eos % (Auto) 4.7 H Baso % (Auto) 0.8 Lymph # (Auto) 2.00 [place] # (Auto) 0.8 H Eos # (Auto) 0.4 H Baso # (Auto) 0.1 Abs Immat Gran (auto) 0.16 H Absolute Neuts (auto) 5.0 Absolute Nucleated RBC 0.000 Nucleated RBC % 0.0 Sodium 137 Potassium 4.4 Chloride 103 Carbon Dioxide 23 Anion Gap 11 BUN 23 H Creatinine 0.77 Estim Creat Clear Calc 107 Estimated GFR > 60 Glucose 94 Calcium 8.6 Total Bilirubin 0.4 AST 31 ALT 34 Alkaline Phosphatase 95 Total Protein 7.0 Albumin 3.7 Nasal RSV Type A (PCR) Not detected Nasal RSV Type B (PCR) Not detected Chlamy pneumoniae PCR Not detected Adenovirus DNA Not detected Human Bocavirus (BIRDIE) Not detected Coronavirus Type OC43 Not detected Coronavirus Type HKU1 Not detected Coronavirus Type 229E Not detected Coronavirus Type NL63 Not detected Human Metapneumovir PCR Not detected Influenza A (PCR) Not detected Influenza A (H1) RNA Not detected Influenza A (H3) PCR Not detected Mycoplasma pneumon IgM M. pneumoniae DNA Not detected Parainfluenza PCR Not detected Parainfluenza 2 (PCR) Not detected Parainfluenza 3 RNA (PCR) Not detected Parainfluenza 4 (PCR) Not detected Rhino/Enterovirus (BIRDIE) Detected A SARS-CoV-2 RNA (RT-PCR) Not detected Urine Pneumococcal Ag Detected A Influenza Type B (PCR) Not detected Misc Test Comment see note 03/20/24 04:50 WBC RBC Hgb Hct MCV MCH MCHC RDW Plt Count MPV Immature Gran % (Auto) Neut % (Auto) Lymph % (Auto) [place] % (Auto) Eos % (Auto) Baso % (Auto) Lymph # (Auto) [place] # (Auto) Eos # (Auto) Baso # (Auto) Abs Immat Gran (auto) Absolute Neuts (auto) Absolute Nucleated RBC Nucleated RBC % Sodium Potassium Chloride Carbon Dioxide Anion Gap BUN Creatinine Estim Creat Clear Calc Estimated GFR Glucose Calcium Total Bilirubin AST ALT Alkaline Phosphatase Total Protein Albumin Nasal RSV Type A (PCR) Nasal RSV Type B (PCR) Chlamy pneumoniae PCR Adenovirus DNA Human Bocavirus (BIRDIE) Coronavirus Type OC43 Coronavirus Type HKU1 Coronavirus Type 229E Coronavirus Type NL63 Human Metapneumovir PCR Influenza A (PCR) Influenza A (H1) RNA Influenza A (H3) PCR Mycoplasma pneumon IgM 131 M. pneumoniae DNA Parainfluenza PCR Parainfluenza 2 (PCR) Parainfluenza 3 RNA (PCR) Parainfluenza 4 (PCR) Rhino/Enterovirus (BIRDIE) SARS-CoV-2 RNA (RT-PCR) Urine Pneumococcal Ag Influenza Type B (PCR) Misc Test Comment Preliminary micro results at discharge 03/19/24 11:00 Blood Culture - Preliminary Blood 03/19/24 11:00 Blood Culture - Preliminary Blood Discharge Plan Discharge Attending physician on discharge: Justin May Consulting providers: Nacho Jimenez; Tony Rivas Discharging Clinician: Yola Nelson Patient Disposition: Home, Self-Care Activity: june shower Diet: as tolerated and regular Discharge Instructions: You were admitted and treated for pneumonia. You tested positive (+) for rhinovirus/enterovirus, HIV negative, negative for COVID, influenza, RSV. There is no specific treatment for rhinovirus except supportive measures. Stay hydrated, rest, use cool mist humidifier at night, take tylenol/ibuprofen as needed. Completed IV ceftriaxone and azithromycin, now on oral Augmentin-has three more doses left-END date 03/25 at pm. Urine antigens are pending for Legionella, pneumococcal antigens, and serum mycoplasma IgM. Long tobacco history; 27 pack year tobacco use, right paratracheal and subcarinal mediastinal mass, no pulmonary nodules. You had Left inguinal LN bio psy 03/22/24, results pending. You will have to f/u with pulmonology after discharge for your biopsy results. Also please schedule an allison with primary care provider and follow up with them as soon as they can get you scheduled (ideally within 2 weeks after discharge) Patient Instructions: Antibiotic Form, Pain Management (DC) Patient Language: Citizen Of [place] Stand Alone Forms: General Discharge Information Follow-up/Referrals: PHYSICIAN,RE[employer]IVER [Primary Care Provider] - 2 Weeks Tony Rivas MD [Physician] - 1 Week (f/u with pulmonology for biopsy results) Discharge Medications: New amoxicillin-pot clavulanate 875-125 mg tablet 1 tablet PO Q12H Qty: 3 0RF Date of admission: 03/19/24 12:42 Primary Care Provider: PHYSICIAN,[employer]IVER Admitting Provider: Rick Fang Attending physician on admission: Rufina Thomas Condition: Stable Quality VTE Prophylaxis VTE prophylaxis: mechanical ordered Hospitalist MIPS Heart Failure (Exclusion) Patient has history of Heart Transplant or Left Ventricular Assistive Device?: No IF YES, STOP HERE Heart Failure (Qualifier) Patient has current or prior documentation of LVEF less than or equal to 40%, or mod/servere depressed LVSF?: No IF NO, STOP HERE
--- NOTE | 2024-03-24 14:06 | PM.PNPUL ---
Progress Note: A&P Assessment and Plan (1) Bilateral pneumonia: Code(s): J18.9 - Pneumonia, unspecified organism Status: Acute Assessment and Plan: Unhoused man; was incarcerated until February of 2023, admitted Mar 19 with 1 month of nasal and congestion, intermittent rhinorrhea, 4 days feeling hot and cold with green phlegm for 3 days cough and shortness of breath; wbc 19.6, chest x-ray with left lower lobe infiltrate and a CT scan with evidence of a left lower lobe pneumonia and a right perihilar pneumonia. He had an extended respiratory pathogen panel that was (+) for rhinovirus/enterovirus, HIV negative; serology negative for COVID, influenza, RSV. There is no specific treatment for rhinovirus. Completed IV ceftriaxone and azithromycin, now on oral Augmentin. Urine antigens are pending for Legionella, pneumococcal antigens, and serum mycoplasma IgM. (2) Mediastinal mass: Code(s): J98.59 - Other diseases of mediastinum, not elsewhere classified Status: Acute Assessment and Plan: Long tobacco history; 27 pack year tobacco use, right paratracheal and subcarinal mediastinal mass, no pulmonary nodules. His axillae did not have LN worth biopsy. He had Left inguinal LN biopsy 03/22/24, results pending. Differential diagnosis includes cancer (primary or metastatic), lymphoma, or doubt reactive lymphadenopathy from pneumonia. HIV is negative. He is getting Care Coordination assistance with living arrangements. Medicaid plan, access to subsidized housing through Medicaid, recently got approved for food stamps and gets about $250/month. (3) COPD (chronic obstructive pulmonary disease): Code(s): J44.9 - Chronic obstructive pulmonary disease, unspecified Status: Acute Assessment and Plan: He has a 27 pack year history of tobacco use. CT scan of the chest on 03/19/2024 shows mild apical predominant paraseptal and centrilobular emphysema. I have no PFTs. Initial wbc on admission with pneumonia is 19.6 with eosinophils 0.1%=20/uL. 03/20/24 ABG on room air = pH 7.42, pCO2 35.5, pO2 90.7, HCO3 23.1, saturation 97.2%, hemoglobin 11.3 g/dL. alpha-1 phenotype is was ordered, he got a serum level which is 273, high, not consistent with alpha-1 AT deficiency. This is an acute phase reactant, and can be high with pneumonia. Plan: currently patient has no active wheezing, likely not a COPD exacerbation and he does not need inhaled or systemic steroids at this time. He had his albuterol nebulizer changed to DuoNebs q.6 hours, changed guaifenesin 1200 mg p.o. b.i.d.. Remains on room air with saturations 99%. (4) Tobacco dependence: Code(s): F17.200 - Nicotine dependence, unspecified, uncomplicated Status: Acute Assessment and Plan: He has 27 pack year history. Plan plan:1) Diagnostic bronchoscopy tomorrow 2:30 is scheduled time. NPO after MN. 2 ) Left inguinal lymph node biopsy from Mar 22 histology reviewed; sclerotic non malignant tissue. 3) continue oral Augmentin. Subjective Date/time seen: 03/24/24 14:06 Interval history: 03/20/24; 03/20/2022: This is a new pulmonary consult for pneumonia and mediastinal mass. 48-year-old tobacco user who is homeless with no significant past medical history currently on no medications. Patient is homeless and has a history of being incarcerated from age [age] and then being in and out of [facility] from 2009 to February of 2023. in January of 2023 approximately 1 month prior to being discharged he was tested for HIV which was negative. In his usual state of health the patient has no respiratory issues and no respiratory limitations in his activities of daily living. Patient smoked tobacco from 21 to current at 1 pack per day he for total of 27 pack years. Patient smokes marijuana 2 to 3 times a week from age 27 to current. Patient snorted methamphetamine for 2 months from October 2020 to after his mom . Patient denied snorting cocaine. Patient denies ever using IV drugs. Patient denies heroin use. Patient has no family other than a brother who is also homeless. Patient worked in the [employer] profession for his working career. 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 Last time he did this work was 2020. Patient denies stand blasting, welding, asbestos work, professional painting, steel sludge mill operator, coal mining, brick or concrete work. One month ago he developed sinus congestion and rhinorrhea. Four days ago he developed hot and cold spells and increased phlegm production which was green. Three days ago he developed cough and 3 days ago he developed shortness of breath. Of note 1 week ago the patient noticed a area of swelling almost like a cyst in his right armpit which persists. One day ago the patient noticed a cyst or swelling in his left armpit that persists. He denies any other skin rashes, new arthritis, change in bowel or urine habits. Symptoms progressed and he presented to [facility] on 03/[facility]24 and they did not meet his care expectations and he left and presented to [facility]. In the emergency room his blood pressure was 123/89, heart rate 129, respiration rate 16, temperature 37.2?, rest room air saturation 98%. White blood cell count was 19.6 was 0.1% eosinophils, creatinine 0.89, lactic acid 0.6, COVID, influenza and RSV RT PCR studies negative. Chest x-ray with left lower lobe pneumonia and right paratracheal mass. CT with contrast showed mild apical predominant paraseptal and centrilobular emphysema. Left lower lobe infiltrates, right paratracheal infiltrate and a right paratracheal mass that extended to the subcarinal region. Patient was placed on ceftriaxone and admitted to the hospital. 03/20/2024. The patient tells me he is the same today. His cough and green phlegm are stable, he still is having sweats, his congestion is the same and his body aches are the same. He is afebrile. His room air saturations are 99%. His white blood cell count is 8.7, his creatinine is 0.75. 03/21/2024; not short of breath. Less cough and less sputum. He has been having night sweats for a while at home. no fever. Pulse is 105, saturation 95% on room air. He is feeling much better compared to when he was admitted to the hospital. 03/22/24; He had a left inguinal LN biopsy, no shortness of breath, not coughing, no sputum. Will wait for results. 03/23/24; he is on room air, has no complaints, no hemoptysis, eating well. He is on antibiotics for treatment of pneumonia, blayne in the LLL. Alpha-1 level is 273 on Mar 21. This is not low. He does not appear to have alpha-1 antitrypsin deficiency. 03/24/24; He is stable, on room air. We discussed inconclusive left inguinal lymph node results, histology returned showing Reactive sclerotic lymph node, No evidence of malignancy. He is agreeable to having a bronchoscopy tomorrow for diagnostic purposed, to get subcarinal tissue to diagnose suspected lymphoma or small cell lung cancer. DATA: 03/19/2024: EXAMINATION: CT chest abdomen w con INDICATION: Assess for malignancy with abnormal chest radiograph COMPARISON: None FINDINGS: Chest: Mild apical predominant paraseptal emphysema. Patchy ground glass opacities and consolidation in the basilar segments of the left lower lobe. There is additional dense consolidation and small amount surrounding patchy ground glass opacity in the anterobasal right lower lobe. No other suspicious pulmonary nodules, pulmonary edema or pleural effusion. Heart size is normal. Atherosclerotic coronary artery calcifications. Small pericardial effusion. Thoracic aorta is normal in caliber with no dissection. Additional enhancing mediastinal mass including a 4.9 x 2.8 cm precarinal mass, 4.5 x 2.8 cm right paratracheal mass and 3.4 x 1.8 cm subcarinal mass which are suspicious for either lymphoma or metastatic disease. No other evident pathologically enlarged lymphadenopathy in the chest or visualized lower neck. Mild thoracic spondylosis. Abdomen: Liver, gallbladder, spleen, pancreas, bilateral adrenal glands and kidneys are normal. Visualized portions of bowels are unremarkable with no obstruction or abnormal bone or thickening. No pathologically enlarged abdominal or upper pelvic lymphadenopathy. Minimal lumbar spondylosis. IMPRESSION: 1. Mediastinal lymphadenopathy suspicious for malignancy either lymphoma or metastatic disease. No other lesions suspicious for primary or metastatic disease identified in the chest or abdomen. 2. Pneumonia in the bilateral lower lobes. 03/19/2024: EXAMINATION: XR chest 2V INDICATION: Cough TECHNIQUE: PA and lateral views of the chest were obtained. FINDINGS: Left lower lobar airspace opacities suspicious for pneumonia. Remainder the lungs are clear with no pulmonary edema, pleural effusion or pneumothorax. Heart size is normal. There is a left-sided aortic arch. There is a contralateral masslike right paratracheal opacity which could represent a mediastinal mass, lymphadenopathy or vascular structure. IMPRESSION: 1. Left lower lobe pneumonia. 2. Right paratracheal masslike opacity which could represent lymphadenopathy, other mediastinal mass or vascular structure. Recommend contrast-enhanced chest CT for further evaluation. Review of Systems Review of Systems: All systems reviewed & are unremarkable except as noted in HPI and below Exam Narrative: GEN: Alert, oriented, not in distress. Room air. saturation 96% CHEST: Equal air entry, symmetric excursion, clear breath sounds CV: Regular S1S2 no m/g/r ABD : (+) bowel sounds Extremities : no clubbing, cyanosis, or edema PSYCH: normal thought and speech Objective Data Vital Signs Vital Signs: Vital Signs - 24 hr 03/23/24 16:00 03/23/24 16:00 03/23/24 20:00 Temperature 36.6 C 36.5 C Pulse Rate 78 79 90 Respiratory Rate 19 20 Blood Pressure 130/78 138/79 Pulse Oximetry 96 97 Oxygen Delivery 03/23/24 20:00 03/23/24 20:38 03/24/24 00:00 Temperature 36.4 C L Pulse Rate 84 84 Respiratory Rate 20 Blood Pressure 117/79 Pulse Oximetry 98 Oxygen Delivery Room Air 03/24/24 00:00 03/24/24 04:00 03/24/24 04:00 Temperature 36.4 C L Pulse Rate 76 73 71 Respiratory Rate 18 Blood Pressure 102/80 Pulse Oximetry 97 Oxygen Delivery 03/24/24 08:00 03/24/24 08:03 03/24/24 09:42 Temperature 36.6 C Pulse Rate 72 72 Respiratory Rate 16 18 Blood Pressure 108/83 Pulse Oximetry 99 97 Oxygen Delivery Room Air 03/24/24 12:00 03/24/24 12:01 Temperature 36.4 C Pulse Rate 66 69 Respiratory Rate 16 Blood Pressure 119/79 Pulse Oximetry 97 Oxygen Delivery Intake/Output Intake/Output: Intake & Output 03/21/24 03/22/24 03/23/24 03/24/24 23:59 23:59 23:59 23:59 Intake Total 2420 862 1330 680 Output Total 2 Balance 2420 862 1328 680 Meds/Results Medications: Active Medications Generic Name Dose Route Start Last Admin Trade Name Freq PRN Reason Stop Dose Admin Acetaminophen 650 mg 03/19/24 12:42 03/21/24 20:32 Acetaminophen 325 Mg Tablet PO 650 mg Q4H PRN Administration Mild Pain (1-3) or Fever Hydrocodone Bitart/Acetaminophen 1 tab 03/19/24 13:03 Hydrocodone/Acetaminophen (*Crx) 5-325 Mg Tablet PO Q4H PRN Pain Rated 4-6 Amoxicillin/Clavulanate Potassium 1 tablet 03/23/24 11:05 03/24/24 09:37 Amoxicillin/Clavulanate K 875-125 Mg Tab PO 03/25/24 21:01 1 tablet Q12HR DAQUAN Administration Enoxaparin Sodium 40 mg 03/20/24 09:00 03/24/24 09:37 Enoxaparin 40 Mg/0.4 Ml Syringe SUB-Q 40 mg DAILY DAQUAN Administration Guaifenesin 1,200 mg 03/20/24 21:00 03/24/24 09:37 Guaifenesin 12 Hr 600 Mg Tabcr PO 1,200 mg Q12HR DAQUAN Administration Sodium Chloride 1,000 mls @ 100 mls/hr 03/19/24 13:05 03/20/24 02:05 Normal Saline Iv IV CONT 100 mls/hr .Q10H DAQUAN Administration Radiology Results: ITS Impressions Chest/Abdomen CT 03/19/24 12:05 IMPRESSION: 1. Mediastinal lymphadenopathy suspicious for malignancy either lymphoma or metastatic disease. No other lesions suspicious for primary or metastatic disease identified in the chest or abdomen. 2. Pneumonia in the bilateral lower lobes. Chest X-Ray 03/21/24 06:37 Impression: Probable mild bibasilar pulmonary edema/atelectasis, versus possibly pneumonia. Correlate clinically. Underlying COPD. Axilla US 03/21/24 14:19 IMPRESSION: Nonpathologically enlarged lymph nodes within the bilateral axilla, as detailed above. The lymph node within the left axilla is amenable to ultrasound-guided biopsy, should that become necessary. Chest/Abdomen/Pelvis CT 03/21/24 23:40 IMPRESSION: 1. Stable bilateral lower lobe pneumonia. 2. Worsened small pleural effusions. 3. Stable mediastinal lymphadenopathy suspicious for metastatic disease or lymphoma. 4. Mild emphysema. Soft Tissue Ultrasound 03/22/24 11:02 IMPRESSION: 1. Normal sized and appearing bilateral inguinal lymph nodes. Soft Tissue Ultrasound 03/22/24 11:02 IMPRESSION: 1. Normal sized and appearing bilateral inguinal lymph nodes. Lymph Node Biopsy Ultrasound 03/22/24 15:35 IMPRESSION: 1. Technically successful ultrasound-guided core needle biopsy of a suspicious lymph node within the left groin, as detailed above. Pathology pending Labs Labs: Laboratory Results - last 24 hr 03/20/24 03/20/24 03/20/24 04:50 10:47 20:41 WBC RBC Hgb Hct MCV MCH MCHC RDW Plt Count MPV Immature Gran % (Auto) Neut % (Auto) Lymph % (Auto) Emmet % (Auto) Eos % (Auto) Baso % (Auto) Lymph # (Auto) Emmet # (Auto) Eos # (Auto) Baso # (Auto) Abs Immat Gran (auto) Absolute Neuts (auto) Absolute Nucleated RBC Nucleated RBC % Sodium Potassium Chloride Carbon Dioxide Anion Gap BUN Creatinine Estim Creat Clear Calc Estimated GFR Glucose Calcium Total Bilirubin AST ALT Alkaline Phosphatase Total Protein Albumin Nasal RSV Type A (PCR) Not detected Nasal RSV Type B (PCR) Not detected Chlamy pneumoniae PCR Not detected Adenovirus DNA Not detected Human Bocavirus (BIRDIE) Not detected Coronavirus Type OC43 Not detected Coronavirus Type HKU1 Not detected Coronavirus Type 229E Not detected Coronavirus Type NL63 Not detected Human Metapneumovir PCR Not detected Influenza A (PCR) Not detected Influenza A (H1) RNA Not detected Influenza A (H3) PCR Not detected Mycoplasma pneumon IgM 131 M. pneumoniae DNA Not detected Parainfluenza PCR Not detected Parainfluenza 2 (PCR) Not detected Parainfluenza 3 RNA (PCR) Not detected Parainfluenza 4 (PCR) Not detected Rhino/Enterovirus (BIRDIE) Detected A SARS-CoV-2 RNA (RT-PCR) Not detected Urine Pneumococcal Ag Detected A Influenza Type B (PCR) Not detected Misc Test Comment see note 03/24/24 05:32 WBC 8.5 RBC 4.27 L Hgb 13.8 L Hct 41.1 L MCV 96.3 MCH 32.3 MCHC 33.6 RDW 12.7 Plt Count 323 MPV 10.8 H Immature Gran % (Auto) 1.9 H Neut % (Auto) 59.4 Lymph % (Auto) 23.6 Emmet % (Auto) 9.6 H Eos % (Auto) 4.7 H Baso % (Auto) 0.8 Lymph # (Auto) 2.00 Emmet # (Auto) 0.8 H Eos # (Auto) 0.4 H Baso # (Auto) 0.1 Abs Immat Gran (auto) 0.16 H Absolute Neuts (auto) 5.0 Absolute Nucleated RBC 0.000 Nucleated RBC % 0.0 Sodium 137 Potassium 4.4 Chloride 103 Carbon Dioxide 23 Anion Gap 11 BUN 23 H Creatinine 0.77 Estim Creat Clear Calc 107 Estimated GFR > 60 Glucose 94 Calcium 8.6 Total Bilirubin 0.4 AST 31 ALT 34 Alkaline Phosphatase 95 Total Protein 7.0 Albumin 3.7 Nasal RSV Type A (PCR) Nasal RSV Type B (PCR) Chlamy pneumoniae PCR Adenovirus DNA Human Bocavirus (BIRDIE) Coronavirus Type OC43 Coronavirus Type HKU1 Coronavirus Type 229E Coronavirus Type NL63 Human Metapneumovir PCR Influenza A (PCR) Influenza A (H1) RNA Influenza A (H3) PCR Mycoplasma pneumon IgM M. pneumoniae DNA Parainfluenza PCR Parainfluenza 2 (PCR) Parainfluenza 3 RNA (PCR) Parainfluenza 4 (PCR) Rhino/Enterovirus (BIRDIE) SARS-CoV-2 RNA (RT-PCR) Urine Pneumococcal Ag Influenza Type B (PCR) Misc Test Comment
[2024-03-25] VITALS (11 sets, daily range): BP systolic 107–136; BP diastolic 74–90; PULSE 68–98; RESP 14–22; TEMP 36.1–36.6; O2SAT 94–100
[2024-03-25 06:02] LABS: Basophils Absolute Auto 0.1 K/mm3 (0.0-0.1); Eosinophils Absolute Auto 0.4 K/mm3 (0-0.3); Eosinophils Percent Auto 4.6 % (0-4.4); Hematocrit 40.5 % (42.0-52.0); Hemoglobin 13.6 g/dL (14.0-18.0); Immature Granulocyte Absolute 0.18 K/mm3 (0.00-0.031); Immature Granulocyte Percent A 2.1 % (0-0.5); Lymphocytes Absolute Auto 2.19 K/mm3 (0.9-3.2); Mean Corpuscular HGB Conc 33.6 g/dl (32-36); Mean Corpuscular Hemoglobin 31.9 pg (26-34); Mean Corpuscular Volume 95.1 fl (80-100); Mean Platelet Volume 10.5 fl (7.4-10.4); Monocytes Percent Auto 11.2 % (2.6-8.5); Neutrophils Absolute Auto 4.9 K/mm3 (1.3-6.7); Neutrophils Percent Auto 56.1 % (45.5-73.1); Platelet Count Result 357 k/mm3 (150-375); Red Blood Count 4.26 M/mm3 (4.6-6.20); Red Cell Distribution Width 12.7 % (11.5-14.5); White Blood Count 8.8 K/mm3 (4.5-10.0)
[2024-03-25 06:13] LABS: Alanine Aminotransferase 41 U/L (6-50); Albumin Level 3.5 g/dL (3.5-5.1); Alkaline Phosphatase 93 U/L (38-126); Anion Gap 8 mmol/L (4-12); Aspartate Amino Transferase 34 U/L (17-59); Bilirubin,Total 0.3 mg/dL (0.2-1.3); Blood Urea Nitrogen 26 mg/dL (9-20); Calcium 8.9 mg/dL (8.4-10.2); Carbon Dioxide 26 mmol/L (22-30); Chloride 104 mmol/L (98-107); Estimated CRCL calculation 102 ml/min; Estimated Glomerular Filt Rate > 60; Glucose 96 mg/dL (65-110); Potassium 4.3 mmol/L (3.4-5.0); Sodium 138 mmol/L (137-145)
[2024-03-25] MEDS: IPRATROPIUM 0.5 MG/ALBUTEROL SULFATE 2.5 MG AMPUL.NEB 3 ML INHALATION (13:04)
--- NOTE | 2024-03-25 13:23 | PM.IMPN ---
Progress Note: A&P Assessment and Plan (1) Bilateral pneumonia: Code(s): J18.9 - Pneumonia, unspecified organism Status: Acute Assessment and Plan: - CXR: Left lower lobe pneumonia. Right paratracheal masslike opacity which could represent lymphadenopathy, other mediastinal mass or vascular structure. - Chest/abdomen CT: Mediastinal lymphadenopathy suspicious for malignancy either lymphoma or metastatic disease. No other lesions suspicious for primary or metastatic disease identified in the chest or abdomen. Pneumonia in the bilateral lower lobes. - started on CAP tx: azithromycin ceftriaxone started on 03/19, MRSA negative discontinued vancomycin - Viral PCR: negative for Flu/COVID/RSV - MRSA negative - blood cultures obtained on 03/19: NGTD - no supplemental O2 requirement - Monitor vital signs, I&Os, neuro status and patient is a fall risk - Follow WBC, serum electrolytes, temperature curves and cultures - Pulmonology consulted Urine for Legionella, urine for pneumococcal antigen, serum mycoplasma IgM and a respiratory pathogen panel HIV negative Repeat an chest x-ray on 03/21/2024: Probable mild bibasilar pulmonary edema/atelectasis, versus possibly pneumonia. Underlying COPD. - continue antibiotics: Augmentin- last dose 03/25 (2) Lymphadenopathy, mediastinal: Code(s): R59.0 - Localized enlarged lymph nodes Status: Acute Assessment and Plan: Concerning for cancer (primary or metastatic), lymphoma 27 pack year smoking history - Possible axillary lymphadenopathy, however was unable to palpate this myself. Per pulmonology felt more indurated than anything. - CXR: Left lower lobe pneumonia. Right paratracheal masslike opacity which could represent lymphadenopathy, other mediastinal mass or vascular structure. - Chest/abdomen CT: Mediastinal lymphadenopathy suspicious for malignancy either lymphoma or metastatic disease. No other lesions suspicious for primary or metastatic disease identified in the chest or abdomen. Pneumonia in the bilateral lower lobes. - Chest/abdomen/pelvis CT: 1. Stable bilateral lower lobe pneumonia. 2. Worsened small pleural effusions. 3. Stable mediastinal lymphadenopathy suspicious for metastatic disease or lymphoma. 4. Mild emphysema. - US axillae: Nonpathologically enlarged lymph nodes within the bilateral axilla. The LN within the left axilla is amenable to US biopsy - US bx of left axilla ordered - Pulmonology consulted, appreciate recommendations HIV negative US axillae, needle bx if appropriately enlarged LN CT chest/abdomen/pelvis looking for progression of pneumonia and any LN that may be present in the groin. Potential bronchoscopy with bx of subcarinal LN (3) COPD (chronic obstructive pulmonary disease): Code(s): J44.9 - Chronic obstructive pulmonary disease, unspecified Status: Acute Assessment and Plan: Does not appear in acute exacerbation. - CXR: Left lower lobe pneumonia. Right paratracheal masslike opacity which could represent lymphadenopathy, other mediastinal mass or vascular structure. - Chest/abdomen CT: Mediastinal lymphadenopathy suspicious for malignancy either lymphoma or metastatic disease. No other lesions suspicious for primary or metastatic disease identified in the chest or abdomen. Pneumonia in the bilateral lower lobes. - Pulmonology consulted does not need inhaled or systemic steroids at this time change his albuterol nebulizer to DuoNebs q.6 hours, change to guaifenesin 1200 mg p.o. b.i.d. abg unremarkable check alpha 1 anti trypsin Plan workign with care coordination to help pt find placement Time Spent With Patient Time with patient: 25 - 35 minutes Subjective Date/time seen: 03/25/24 13:23 Interval history: bronch is scheduled for today. pt is very unhappy about not getting it dine sooner and not being able to eat. Doing well otherwise Review of Systems Review of Systems: 12 systems were reviewed and are negative except for as per HPI. All systems reviewed & are unremarkable except as noted in HPI and below Exam Narrative: General: male in no acute respiratory distress who is nontoxic appearing, lying semi recumbent in bed. HEENT: Normocephalic. Atraumatic. Extraocular movement intact. Sclera clear and anicteric. No facial asymmetry. Chest: Lungs are diminished to auscultation bilaterally. No wheezes or crackles. CV: Heart was regular rate and rhythm. Abd: Abdomen was soft. Nontender. Nondistended. Positive bowel sounds. No organomegaly or masses. Ext: No clubbing, cyanosis, or edema. 2+ DP pulses bilaterally. Unable to palpate axillary nodes. Neuro: Patient is alert. Speech is clear. Const: General: comfortable Objective Data Vital Signs Vital Signs: Vital Signs - 24 hr 03/24/24 16:00 03/24/24 16:03 03/24/24 20:00 Temperature 98 F 97.5 F L Pulse Rate 85 82 95 Respiratory Rate 16 16 Blood Pressure 132/89 123/73 Pulse Oximetry 99 98 Oxygen Delivery Fraction of Inspired Oxygen 03/24/24 20:00 03/24/24 21:05 03/25/24 00:00 Temperature 97.8 F Pulse Rate 99 82 Respiratory Rate 16 Blood Pressure 129/78 Pulse Oximetry 98 Oxygen Delivery Room Air Fraction of Inspired Oxygen 03/25/24 00:00 03/25/24 03:59 03/25/24 04:00 Temperature 97.6 F Pulse Rate 83 75 80 Respiratory Rate 18 Blood Pressure 122/80 Pulse Oximetry 99 Oxygen Delivery Fraction of Inspired Oxygen 03/25/24 08:00 03/25/24 08:00 03/25/24 10:24 Temperature 97.7 F Pulse Rate 74 Respiratory Rate 14 Blood Pressure 128/79 Pulse Oximetry 98 97 Oxygen Delivery Room Air Room Air Fraction of Inspired Oxygen 03/25/24 13:05 03/25/24 13:14 Temperature Pulse Rate 75 68 Respiratory Rate 18 18 Blood Pressure Pulse Oximetry Oxygen Delivery Fraction of Inspired Oxygen Intake/Output Intake/Output: Intake & Output 03/22/24 03/23/24 03/24/24 03/25/24 23:59 23:59 23:59 23:59 Intake Total 862 1330 1120 300 Output Total 2 3 650 Balance 862 1328 1117 -350 Meds/Results Medications: Active Medications Generic Name Dose Route Start Last Admin Trade Name Freq PRN Reason Stop Dose Admin Acetaminophen 650 mg 03/19/24 12:42 03/21/24 20:32 Acetaminophen 325 Mg Tablet PO 650 mg Q4H PRN Administration Mild Pain (1-3) or Fever Hydrocodone Bitart/Acetaminophen 1 tab 03/19/24 13:03 Hydrocodone/Acetaminophen (*Crx) 5-325 Mg Tablet PO Q4H PRN Pain Rated 4-6 Amoxicillin/Clavulanate Potassium 1 tablet 03/23/24 11:05 03/24/24 21:08 Amoxicillin/Clavulanate K 875-125 Mg Tab PO 03/25/24 21:01 1 tablet Q12HR DAQUAN Administration Enoxaparin Sodium 40 mg 03/20/24 09:00 03/24/24 09:37 Enoxaparin 40 Mg/0.4 Ml Syringe SUB-Q 40 mg DAILY DAQUAN Administration Guaifenesin 1,200 mg 03/20/24 21:00 03/24/24 21:09 Guaifenesin 12 Hr 600 Mg Tabcr PO 1,200 mg Q12HR DAQUAN Administration Sodium Chloride 1,000 mls @ 100 mls/hr 03/19/24 13:05 03/20/24 02:05 Normal Saline Iv IV CONT 100 mls/hr .Q10H DAQUAN Administration Radiology Results: ITS Impressions Chest/Abdomen CT 03/19/24 12:05 IMPRESSION: 1. Mediastinal lymphadenopathy suspicious for malignancy either lymphoma or metastatic disease. No other lesions suspicious for primary or metastatic disease identified in the chest or abdomen. 2. Pneumonia in the bilateral lower lobes. Chest X-Ray 03/21/24 06:37 Impression: Probable mild bibasilar pulmonary edema/atelectasis, versus possibly pneumonia. Correlate clinically. Underlying COPD. Axilla US 03/21/24 14:19 IMPRESSION: Nonpathologically enlarged lymph nodes within the bilateral axilla, as detailed above. The lymph node within the left axilla is amenable to ultrasound-guided biopsy, should that become necessary. Chest/Abdomen/Pelvis CT 03/21/24 23:40 IMPRESSION: 1. Stable bilateral lower lobe pneumonia. 2. Worsened small pleural effusions. 3. Stable mediastinal lymphadenopathy suspicious for metastatic disease or lymphoma. 4. Mild emphysema. Soft Tissue Ultrasound 03/22/24 11:02 IMPRESSION: 1. Normal sized and appearing bilateral inguinal lymph nodes. Soft Tissue Ultrasound 03/22/24 11:02 IMPRESSION: 1. Normal sized and appearing bilateral inguinal lymph nodes. Lymph Node Biopsy Ultrasound 03/22/24 15:35 IMPRESSION: 1. Technically successful ultrasound-guided core needle biopsy of a suspicious lymph node within the left groin, as detailed above. Pathology pending Labs Labs: Laboratory Results - last 24 hr 03/25/24 04:56 WBC 8.8 RBC 4.26 L Hgb 13.6 L Hct 40.5 L MCV 95.1 MCH 31.9 MCHC 33.6 RDW 12.7 Plt Count 357 MPV 10.5 H Immature Gran % (Auto) 2.1 H Neut % (Auto) 56.1 Lymph % (Auto) 25.0 [place] % (Auto) 11.2 H Eos % (Auto) 4.6 H Baso % (Auto) 1.0 Lymph # (Auto) 2.19 [place] # (Auto) 1.0 H Eos # (Auto) 0.4 H Baso # (Auto) 0.1 Abs Immat Gran (auto) 0.18 H Absolute Neuts (auto) 4.9 Absolute Nucleated RBC 0.000 Nucleated RBC % 0.0 Sodium 138 Potassium 4.3 Chloride 104 Carbon Dioxide 26 Anion Gap 8 BUN 26 H Creatinine 0.81 Estim Creat Clear Calc 102 Estimated GFR > 60 Glucose 96 Calcium 8.9 Total Bilirubin 0.3 AST 34 ALT 41 Alkaline Phosphatase 93 Total Protein 7.0 Albumin 3.5 Quality VTE Prophylaxis VTE prophylaxis: mechanical ordered
--- NOTE | 2024-03-25 13:47 | P.PNAN_ITS ---
Anes - Initial Pre Proc Eval Procedure: Operation Date: 03/25/24 14:30 Proposed Procedures p Flexible Bronchoscopy - Vi Mccallum MD Date/Time: 03/25/24 13:47 Surgeon: Rufina Thomas PA-C Pre Op Diagnosis: pneumonia,mediastinal,lymphadenopathy Patient Data Age: 48 Gender: M Height: 1.85 m Weight: 73 kg Last Vital Signs Temp 36.5 C 03/25/24 08:00 Pulse 68 03/25/24 13:14 Resp 18 03/25/24 13:14 BP 128/79 03/25/24 08:00 Pulse Ox 97 03/25/24 10:24 O2 Del Method Room Air 03/25/24 10:24 FiO2 21 03/25/24 08:00 Allergies Allergy/AdvReac Type Severity Reaction Status Date / Time No Known Allergies Allergy Verified 03/19/24 15:33 Home Medications ?Medication ?Instructions ?Recorded ?Confirmed ?Type amoxicillin 875 mg-potassium 1 tablet PO Q12H #3 tabs 03/24/24 Rx clavulanate 125 mg tablet Laboratory Tests 03/25/24 04:56 WBC 8.8 K/mm3 (4.5-10.0) RBC 4.26 L M/mm3 (4.6-6.20) Hgb 13.6 L g/dL (14.0-18.0) Hct 40.5 L % (42.0-52.0) MCV 95.1 fl (80-100) MCH 31.9 pg (26-34) MCHC 33.6 g/dl (32-36) RDW 12.7 % (11.5-14.5) Plt Count 357 k/mm3 (150-375) MPV 10.5 H fl (7.4-10.4) Immature Gran % (Auto) 2.1 H % (0-0.5) Neut % (Auto) 56.1 % (45.5-73.1) Lymph % (Auto) 25.0 % (18.3-44.2) [place] % (Auto) 11.2 H % (2.6-8.5) Eos % (Auto) 4.6 H % (0-4.4) Baso % (Auto) 1.0 % (0.2-1.2) Lymph # (Auto) 2.19 K/mm3 (0.9-3.2) [place] # (Auto) 1.0 H K/mm3 (0.1-0.6) Eos # (Auto) 0.4 H K/mm3 (0-0.3) Baso # (Auto) 0.1 K/mm3 (0.0-0.1) Abs Immat Gran (auto) 0.18 H K/mm3 (0.00-0.031) Absolute Neuts (auto) 4.9 K/mm3 (1.3-6.7) Absolute Nucleated RBC 0.000 K/mm3 (0.0-0.012) Nucleated RBC % 0.0 % (0.0-0.2) Sodium 138 mmol/L (137-145) Potassium 4.3 mmol/L (3.4-5.0) Chloride 104 mmol/L (98-107) Carbon Dioxide 26 mmol/L (22-30) Anion Gap 8 mmol/L (4-12) BUN 26 H mg/dL (9-20) Creatinine 0.81 mg/dL (0.7-1.3) Estim Creat Clear Calc 102 ml/min Estimated GFR > 60 (59 - ) Glucose 96 mg/dL (65-110) Calcium 8.9 mg/dL (8.4-10.2) Total Bilirubin 0.3 mg/dL (0.2-1.3) AST 34 U/L (17-59) ALT 41 U/L (6-50) Alkaline Phosphatase 93 U/L (38-126) Total Protein 7.0 g/dL (6.3-8.2) Albumin 3.5 g/dL (3.5-5.1) Patient hx anesthesia problems: none Family hx anesthesia problems: none Results Review: All pre-operative results and documents have been reviewed as part of the pre- operative evaluation. FOR[facility]LY [facility] Past Medical History Medical History Tobacco dependence No pertinent past medical history Surgical History Surgical History No pertinent past surgical history Family History Family History Mother Breast cancer Heart disease Social History Social History Social History: Surrogate medical decision maker: Pietro Swartz, sibling. Code status: Full code. Smoking packs per day: 1 Smoking cigarettes per day: 20.0 Years smoked: 30 Smoking pack-years: 30.00 Smoking status: Current every day smoker Tobacco type: cigarettes Alcohol intake: never Substance use: current Substance use type: marijuana Do You Feel Safe in your Home?: Yes Lack of Transportation: No Lack of Food: Never True Current Housing: I Do Not Have Housing Concerned About Future Housing: YES Difficulty Paying Gas/Electric Bills: YES Difficulty Paying for Meds: No Currently Unemployed: No Education: Associate Degree Difficulty w/ Childcare or Family Care: No Living arrangements: with family Spiritual care concerns: No Anes - Eval Final PreProcedure Day of Procedure 03/25/24 13:47 Patient weight: normal Heart: regular rate and rhythm Lungs: decreased breath sounds Airway: Mallampati scale class 1 Neurological: alert and oriented Last oral intake: >/= 8 hours ASA classification: III Emergent: no Anesthetic plan: proceed Anesthesia type and monitoring: general ETT and standard monitoring Results Review: All pre-operative results and documents have been reviewed as part of the pre- operative evaluation. Informed Consent: The patient's anesthetic plan and its attendant risks and benefits were discussed with the patient/family/POA. Questions were solicited and answers provided to the satisfaction of the patient/family/POA.
[2024-03-25] MEDS: LACTATED RINGERS 1,000 ML 150 ML IV CONT (13:53)
--- NOTE | 2024-03-25 15:17 | P.DS_ITS ---
DS: Admitting Diagnosis Discharge Date 03/25 Admitting Diagnosis sob, cough DS: Discharge Diagnosis Discharge Diagnosis (1) Bilateral pneumonia: Code(s): J18.9 - Pneumonia, unspecified organism Status: Acute (2) Lymphadenopathy, mediastinal: Code(s): R59.0 - Localized enlarged lymph nodes Status: Acute (3) COPD (chronic obstructive pulmonary disease): Code(s): J44.9 - Chronic obstructive pulmonary disease, unspecified Status: Acute DS: Summary Hospital Course Hospital Course: 48-year-old male no known medical history presents the hospital with shortness of breath. Patient states that he has had shortness of breath and cough for the last couple days. And swelling in his left armpit. Patient denies fevers chills, weight loss, poor appetite or history of cancer. He states that his mother has history of breast cancer. He denies nausea or vomiting. CT scan with evidence of a left lower lobe pneumonia and a right perihilar pneumonia. He had an extended respiratory pathogen panel that was (+) for rhinovirus/enterovirus, HIV negative; serology negative for COVID, influenza, RSV. There is no specific treatment for rhinovirus except supportive measures. Completed IV ceftriaxone and azithromycin, now on oral Augmentin-has three more doses left-END date 03/25 at pm. He can take a dose today and be discharged-as he is good to go from pulmonology standpoint. He had bronchoscopy today- samples collected. Urine antigens are pending for Legionella, pneumococcal antigens, and serum mycoplasma IgM. Long tobacco history; 27 pack year tobacco use, right paratracheal and subcarinal mediastinal mass, no pulmonary nodules. His axillae did not have LN worth biopsy. He had Left inguinal LN biopsy 03/22/24, results pending. Differential diagnosis includes cancer (primary or metastatic), lymphoma, or doubt reactive lymphadenopathy from pneumonia. HIV is negative. He will have to f/u with pulmonology after discharge Status at Discharge Functional status at discharge: independent ambulation Overall status at discharge: patient is back to baseline Time Spent with Patient Time attestation: Total time spent providing and/or coordinating discharge services: Time spent: Greater than 30 minutes Exam Narrative: General: male in no acute respiratory distress who is nontoxic appearing, lying semi recumbent in bed. HEENT: Normocephalic. Atraumatic. Extraocular movement intact. Sclera clear and anicteric. No facial asymmetry. Chest: Lungs are diminished to auscultation bilaterally. No wheezes or crackles. CV: Heart was regular rate and rhythm. Abd: Abdomen was soft. Nontender. Nondistended. Positive bowel sounds. No organomegaly or masses. Ext: No clubbing, cyanosis, or edema. 2+ DP pulses bilaterally. Unable to palpate axillary nodes. Neuro: Patient is alert. Speech is clear. Const: General: comfortable DS: Data Data Completed and Pending Completed studies during hospitalization: Pending at discharge 03/22/24 14:50 Surgical [PTH] Routine Pending studies at discharge: Pending at discharge 03/25/24 14:57 Surgical [PTH] Routine Labs on day of discharge: Labs from last 24 hours 03/25/24 04:56 WBC 8.8 RBC 4.26 L Hgb 13.6 L Hct 40.5 L MCV 95.1 MCH 31.9 MCHC 33.6 RDW 12.7 Plt Count 357 MPV 10.5 H Immature Gran % (Auto) 2.1 H Neut % (Auto) 56.1 Lymph % (Auto) 25.0 [place] % (Auto) 11.2 H Eos % (Auto) 4.6 H Baso % (Auto) 1.0 Lymph # (Auto) 2.19 [place] # (Auto) 1.0 H Eos # (Auto) 0.4 H Baso # (Auto) 0.1 Abs Immat Gran (auto) 0.18 H Absolute Neuts (auto) 4.9 Absolute Nucleated RBC 0.000 Nucleated RBC % 0.0 Sodium 138 Potassium 4.3 Chloride 104 Carbon Dioxide 26 Anion Gap 8 BUN 26 H Creatinine 0.81 Estim Creat Clear Calc 102 Estimated GFR > 60 Glucose 96 Calcium 8.9 Total Bilirubin 0.3 AST 34 ALT 41 Alkaline Phosphatase 93 Total Protein 7.0 Albumin 3.5 Discharge Plan Discharge Attending physician on discharge: Justin May Consulting providers: Nacho Jimenez; Tony Rivas Discharging Clinician: Yola Nelson Patient Disposition: Home, Self-Care Activity: may shower Diet: as tolerated and regular Discharge Instructions: You were admitted and treated for pneumonia. You tested positive (+) for rhinovirus/enterovirus, HIV negative, negative for COVID, influenza, RSV. There is no specific treatment for rhinovirus except supportive measures. Stay hydrated, rest, use cool mist humidifier at night, take tylenol/ibuprofen as needed. Completed IV ceftriaxone and azithromycin, now on oral Augmentin-TWO more doses left. Urine antigens are pending for Legionella, pneumococcal antigens, and serum mycoplasma IgM. Long tobacco history; 27 pack year tobacco use, right paratracheal and subcarinal mediastinal mass, no pulmonary nodules. You had Left inguinal LN biopsy 03/22/24, results pending. You had broncoscopy -tolerated procedure well and was cleared to go home per pulmonology. You will have to f/u with pulmonology after discharge for your biopsy results. Also please schedule an allison with primary care provider and follow up with them as soon as they can get you scheduled (ideally within 2 weeks after discharge) Patient Instructions: Antibiotic Form, Pain Management (DC) Patient Language: Stateless Stand Alone Forms: General Discharge Information Follow-up/Referrals: PHYSICIAN,[employer] [Primary Care Provider] - 2 Weeks Tony Rivas MD [Physician] - 1 Week (f/u with pulmonology for biopsy results) Discharge Medications: New amoxicillin-pot clavulanate 875-125 mg tablet 1 tablet PO Q12H Qty: 3 0RF Date of admission: 03/24/24 12:57 Primary Care Provider: PHYSICIAN,[employer] Admitting Provider: Rick Fang Attending physician on admission: Rufina Thomas Condition: Stable Quality VTE Prophylaxis VTE prophylaxis: mechanical ordered Hospitalist MIPS Heart Failure (Exclusion) Patient has history of Heart Transplant or Left Ventricular Assistive Device?: No IF YES, STOP HERE Heart Failure (Qualifier) Patient has current or prior documentation of LVEF less than or equal to 40%, or mod/servere depressed LVSF?: No IF NO, STOP HERE
--- NOTE | 2024-03-25 15:24 | SUR.PHASEII ---
Patient requesting to go back to his room. Patient using RN phone to speak with brother. Latisha score 10. Dr Reynolds made aware, Dr Mccallum in procedure room as well- both okay for patient to be transferred back upstairs.
[2024-03-25 17:05] LABS: Appearance Bronchial Fluid Hazy; Color Bronchial Fluid Red; Eosinophils Bronchial Fluid 0 %; Lymphocytes Bronchial Fluid 14 %; Macrophages Bronchial Fluid 1; Monocytes Bronchial Fluid 6 %; Neutrophils Bronchial Fluid 33 %; Source Bronchial Fluid Bronchial Washings
[2024-03-25 17:07] LABS: Other Cells Bronchial Fluid 46 %
--- NOTE | 2024-03-26 10:18 | WPDANESPN ---
Anes - Prog Note Post-Op Date/Time: 03/26/24 10:18 Cardiovascular status: normal Respiratory status: normal Airway patency: baseline Mental status: baseline Post-Op hydration status: normal Vital Signs: Last Vital Signs Temp 36.1 C L 03/25/24 14:54 Pulse 96 03/25/24 15:13 Resp 20 03/25/24 15:13 BP 107/74 03/25/24 15:13 Pulse Ox 94 03/25/24 15:13 O2 Del Method Room Air 03/25/24 15:13 O2 Flow Rate 6 03/25/24 14:54 FiO2 21 03/25/24 08:00 Pain Score (VAS): 0 Laboratory Tests 03/25/24 04:56 03/25/24 04:56 03/25/24 15:34 Bronch Specimen Source Bronchial washings Bronchial Fluid Color Red Bronchial Fluid Appearance Hazy Bronchial Neutrophils 33 Bronchial Lymphocytes 14 Bronchial Monocytes 6 Bronchial Eosinophils 0 Bronchial Macrophages 1 Bronchial Other Cells 46 Post-procedural complaints: none Patient Feedback: Patient satisfied with anesthetic care.
[2024-04-01 22:29] LABS: Legionella pneumophila Ag Ur NOT DETECTED
== END 2024-03-25 16:51 | disposition home or self-care (01) | DRG 952 ==
LOC: ANHED 12:42 → ANH2MED 14:40
PROVIDERS: Emergency Medicine; Internal Medicine Critical Care Medicine; Internal Medicine Pulmonary Disease; Nurse Practitioner Gerontology; Student in an Organized Health Care Education/Training Program; Admitting Provider Internal Medicine; Emergency Provider Emergency Medicine; Visit Provider Nurse Practitioner
PROC: 0BJ08ZZ Inspection of Tracheobronchial Tree, Via Natural or Artificial Opening Endoscopic (ICD-10-PCS; CPT 31622; principal; 2024-03-25 14:30)
DX: C34.01 Malignant neoplasm of right main bronchus (principal); J18.9 Pneumonia, unspecified organism; J44.0 Chronic obstructive pulmonary disease with (acute) lower respiratory infection; R59.0 Localized enlarged lymph nodes; J43.2 Centrilobular emphysema; B97.89 Other viral agents as the cause of diseases classified elsewhere; F17.210 Nicotine dependence, cigarettes, uncomplicated; R00.0 Tachycardia, unspecified; Z59.01 Sheltered homelessness; Z20.822 Contact with and (suspected) exposure to COVID-19
CPT/HCPCS: 36415; 36600; 38505; 71045; 71046; 71260; 74160; 74177; 76882; 76942; 80048; 80053; 82103; 82565; 82805; 83605; 83735; 85018; 85025; 85055; 85610; 85730; 85999; 86703; 86738; 87015; 87040; 87070; 87102; 87116; 87205; 87206; 87449; 87633; 87637; 87641; 87899; 88160; 88184; 88305; 94640; 96361; 96365; 96366; 96367; 96372; 96374; 99285; A9270; G0378; G0379; G0432; J0330; J0456; J0696; J1650; J1885; J2003; J2004; J2250; J2405; J3010; J3370; J7030; J7040; J7120; Q9967